=== PATIENT | female | born 1935 | race Caucasian/White ===

== ENCOUNTER 2016-06-17 09:58 | Inpatient (IN) | payer MEDICARE, MEDICAID ==
[2016-06-17] MEDS ORDERED: Sodium Chloride 0.9% 500 ML IV ONE (10:30)
[2016-06-17 10:32] VITALS: BMI 25.6
--- NOTE | 2016-06-17 10:45 | C.PDOC ---
History Of Present Illness 80-year-old female, PMHx includes Anemia, presents to the emergency department with complaints of dizziness (sensation of room spinning), over the past several days. Today, she states the dizziness worsened, and was associated with chest pain, shortness of breath and a decreased PO intake. Patient notes a Hx of similar symptoms dizziness, but it is "stronger" this time. She denies nausea/vomiting, diarrhea, fever/chills, visual changes, extremity weakness, sensory changes, facial droop, slurred speech. 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 History/Exam Limitations: no limitations Onset/Duration Of Symptoms: Days Current Symptoms Are (Timing): Still Present Possible Causative Factor(s): Vertigo Severity: Moderate Past Medical History Reviewed: Historical Data, Nursing Documentation, Vital Signs Vital Signs: Last Vital Signs Temp 98.0 F 06/21/16 15:10 Pulse 73 06/21/16 15:10 Resp 18 06/21/16 15:10 BP 134/73 06/21/16 15:10 Pulse Ox 99 06/21/16 15:10 - Medical History PMH: Anemia, Arthritis (KNEES, HIPS), Asthma, CHF, CVA, Diabetes, HTN, Hypercholesterolemia, Osteoporosis, Chronic Kidney Disease - [facility] Procedures OPEN REDUC-INT FIX FEMUR (01/01/13) Family History: States: No Known Family Hx - Social History Hx Tobacco Use: No Hx Alcohol Use: No Hx Substance Use: No - Immunization History Hx Tetanus Toxoid Vaccination: Yes Hx Influenza Vaccination: Yes Hx Pneumococcal Vaccination: Yes Review Of Systems Except As Marked, All Systems Reviewed And Found Negative. Constitutional: Negative for: Fever, Chills Cardiovascular: Positive for: Chest Pain. Negative for: Palpitations Respiratory: Positive for: Shortness of Breath. Negative for: Cough Gastrointestinal: Negative for: Nausea, Vomiting Musculoskeletal: Negative for: Back Pain Skin: Negative for: Rash Neurological: Positive for: Dizziness. Negative for: Weakness, Numbness Physical Exam - Physical Exam Appears: Well, Non-toxic, No Acute Distress Skin: Warm, Dry, No Rash Head: Normacephalic Eye(s): bilateral: Normal Inspection, PERRL, EOMI, Other (no nystagmus) Oral Mucosa: Moist Neck: Normal, Normal ROM Cardiovascular: Rhythm Regular, Murmur (3/6 holosystolic) Respiratory: Normal Breath Sounds, No Rales, No Rhonchi, No Wheezing Gastrointestinal/Abdominal: Normal Exam, Bowel Sounds, Soft, No Tenderness Extremity: Normal ROM, No Tenderness, Pedal Edema Neurological/Psych: Oriented x3, Normal Speech, Normal Cognition, Normal Cranial Nerves, No Cerebellar Signs, Normal Motor, Normal Sensation ED Course And Treatment - Laboratory Results Result Diagrams: 06/20/16 11:57 06/21/16 06:12 ECG: Interpreted By Me, Viewed By Me ECG Rhythm: Sinus Rhythm ECG Interpretation: No Acute Changes Rate From EC (bpm) O2 Sat by Pulse Oximetry: 97 (ra) Pulse Ox Interpretation: Normal - Radiology CXR: Interpreted by Me, Viewed By Me CXR Interpretation: Yes: No Acute Disease. No: Infiltrates Progress Note: Bloodwork, EKG, CXR, and UA ordered and reviewed. Patient given IV NS bolus. PO ASA given after CT head (-) for bleed, and IV cipro given for UTI. Reevaluation Time: 12:45 Reassessment Condition: Improved (Patient resting comfortably, vitals stable.) - Physician Consult Information Physician Contacted: Clarisa Pace Outcome Of Conversation: Discussed patient with Dr. Pace, she agrees with admissin for chest pain, dyspnea, anemia, elevated Bun/Cr, vertigo, UTI. Disposition - Disposition Disposition: HOSPITALIZED Disposition Time: 13:02 Condition: FAIR - Clinical Impression Clinical Impression: Elevated serum creatinine, UTI (urinary tract infection), Chest pain, Elevated BUN, Dyspnea, Anemia - Scribe Statement The provider has reviewed the documentation as recorded by the Vadim Watkins All medical record entries made by the Vadim were at my direction and personally dictated by me. I have reviewed the chart and agree that the record accurately reflects my personal performance of the history, physical exam, medical decision making, and the department course for this patient. I have also personally directed, reviewed, and agree with the discharge instructions and disposition. Decision To Admit - Pt Status Changed To: Hospital Disposition Of: Inpatient - Admit Certification Admit to Inpatient:: After my assessment, the patient will require hospitalization for at least two midnights. This is because of the severity of symptoms shown, intensity of services needed, and/or the medical risk in this patient being treated as an outpatient. - InPatient: Physician Admission Certification: I certify that this patient requires 2 or more midnights of care for the following reason:: see notes - . Bed Request Type: Telemetry Admitting Physician: Clarisa Pace Patient Diagnosis: Dizziness, Chest pain, Dyspnea, Elevated serum creatinine, UTI (urinary tract infection), Elevated BUN
[2016-06-17 10:57] LABS: BASO # 0.1 K/uL (0.0-0.2); BASO % 0.9 % (0.0-2.0); EOS # 0.2 K/uL (0.0-0.7); EOS % 2.7 % (0.0-4.0); HEMATOCRIT 30.3 % (34.0-47.0); LYMPH # 2.5 K/uL (1.0-4.3); LYMPH % 34.5 % (20.0-40.0); MEAN CELL VOLUME 80.5 fL (81.0-99.0); MEAN CORPUSCULAR HEMOGLOBIN 25.6 pg (27.0-31.0); MEAN CORPUSCULAR HGB CONC 31.9 g/dL (33.0-37.0); MEAN PLATELET VOLUME 10.1 fL (7.2-11.7); MONO # 0.7 K/uL (0.0-0.8); MONO % 10.2 % (0.0-10.0); RED CELL DISTRIBUTION WIDTH 17.6 % (11.5-14.5); WHITE BLOOD COUNT 7.3 K/uL (4.8-10.8)
[2016-06-17 11:07] LABS: CHLORIDE 100 mmol/L (98-107); POTASSIUM 4.5 mmol/L (3.6-5.2); SODIUM 136 mmol/L (132-148)
[2016-06-17 11:09] LABS: GFR AFRICAN-AMERICAN 48
[2016-06-17 11:10] LABS: ALB/GLOB RATIO 1.4 (1.0-2.1); ALKALINE PHOSPHATASE 62 U/L (38-126); ALT/SGPT 26 U/L (9-52); AST/SGOT 18 U/L (14-36); BILIRUBIN,TOTAL < 0.1 mg/dL (0.2-1.3); BLOOD UREA NITROGEN 50 mg/dL (7-17); CALCIUM 9.7 mg/dl (8.6-10.4); CARBON DIOXIDE 25 mmol/L (22-30); GLUCOSE,RANDOM 192 mg/dL (65-105); TOTAL PROTEIN 7.8 g/dL (6.3-8.3)
[2016-06-17 11:36] LABS: RBC URINE < 1 /hpf (0-3); URINE BACTERIA RARE (<OCC); URINE BILIRUBIN NEGATIVE (NEGATIVE); URINE BLOOD NEGATIVE (NEGATIVE); URINE COLOR Straw (YELLOW); URINE GLUCOSE (UA) NORMAL (Normal); URINE KETONE NEGATIVE (NEGATIVE); URINE LEUKOCYTE ESTERASE 1+ Leu/uL (Negative); URINE PROTEIN NEGATIVE (NEGATIVE); URINE UROBILINOGEN NORMAL mg/dL (0.2-1.0); WBC URINE 13 /hpf (0-5)
--- NOTE | 2016-06-17 12:12 | RAD ---
PROCEDURE: CHEST RADIOGRAPH, 1 VIEW. Technique: Single view portable semi erect @ 10:40. HISTORY: SOB COMPARISON: 12/02/2014. FINDINGS: LUNGS: Clear. PLEURA: No pneumothorax or pleural fluid seen. CARDIOVASCULAR: No radiographic findings to suggest acute or significant cardiovascular disease. OSSEOUS STRUCTURES: No significant abnormalities. VISUALIZED UPPER ABDOMEN: Normal. OTHER FINDINGS: None. IMPRESSION: No active disease.
[2016-06-17] MEDS ORDERED: Ciprofloxacin 400mg/200ml D5W 400 MG/200 ML BAG IV ONE (13:15)
[2016-06-17] MEDS ORDERED: Ciprofloxacin 400mg/200ml D5W 400 MG/200 ML BAG IVPB ONE (13:32)
[2016-06-17] MEDS ORDERED: Albuterol HFA 90 mcg/actuation (8 g) IH PRN (15:45)
[2016-06-17] MEDS ORDERED: Sodium Chloride 0.9% 1,000 ML IV SCH (15:45)
[2016-06-17] MEDS: (Novolin R) Insulin Human Regular 100 units/ml vial SC SCH ×3 (18:25→21:53)
[2016-06-18] MEDS: Ciprofloxacin 200mg/100ml D5W 100 ML IVPB SCH ×2 (02:00→13:32)
[2016-06-18 07:41] LABS: BASO % 0.1 % (0.0-2.0); EOS # 0.1 K/uL (0.0-0.7); EOS % 0.3 % (0.0-4.0); HEMATOCRIT 27.9 % (34.0-47.0); LYMPH % 9.8 % (20.0-40.0); MEAN CELL VOLUME 80.6 fL (81.0-99.0); MEAN CORPUSCULAR HEMOGLOBIN 25.3 pg (27.0-31.0); MEAN CORPUSCULAR HGB CONC 31.4 g/dL (33.0-37.0); MEAN PLATELET VOLUME 10.9 fL (7.2-11.7); MONO # 0.9 K/uL (0.0-0.8); MONO % 4.4 % (0.0-10.0); PLATELET COUNT 185 K/uL (130-400); RED CELL DISTRIBUTION WIDTH 17.5 % (11.5-14.5)
[2016-06-18 07:46] LABS: WHITE BLOOD COUNT 20.6 K/uL (4.8-10.8)
[2016-06-18 08:14] LABS: POTASSIUM 4.6 mmol/L (3.6-5.2)
[2016-06-18 08:17] LABS: CALCIUM 8.6 mg/dl (8.6-10.4)
[2016-06-18] MEDS: (Novolin R) Insulin Human Regular 100 units/ml vial SC SCH ×4 (09:00→21:54)
[2016-06-18 10:11] LABS: NEUTROPHIL 72 % (50-75); TOTAL CELLS COUNTED 100
[2016-06-18 10:12] LABS: LARGE PLATELETS PRESENT; SPHEROCYTES SLIGHT
[2016-06-18] MEDS: Enoxaparin 30 mg Syringe SC SCH (10:18)
[2016-06-18] MEDS: Pantoprazole 40 mg EC Tab PO SCH (10:18)
[2016-06-18] MEDS: Multiple Vitamins Tab PO SCH (10:18)
--- NOTE | 2016-06-18 10:38 | CP.PCM.HP ---
Present on Admission - Present on Admission Any Indicators Present on Admission: Yes History of Uncontrolled Diabetes: Yes Past Patient History - Infectious Disease Hx of Infectious Diseases: None - Past Medical History & Family History Past Medical History?: Yes - Past Social History Smoking Status: Never Smoked - CARDIAC Hx Congestive Heart Failure: Yes Hx Hypercholesterolemia: Yes Hx Hypertension: Yes - PULMONARY Hx Asthma: Yes - NEUROLOGICAL Hx Alzheimer's Disease: No Hx Dementia: No - HEENT Hx HEENT Problems: No - RENAL Hx Chronic Kidney Disease: Yes - ENDOCRINE/METABOLIC Hx Diabetes Mellitus Type 1: No Hx Diabetes Mellitus Type 2: Yes - HEMATOLOGICAL/ONCOLOGICAL Hx Anemia: Yes - INTEGUMENTARY Hx Dermatological Problems: No - MUSCULOSKELETAL/RHEUMATOLOGICAL Hx Arthritis: Yes (KNEES, HIPS) Hx Falls: Yes Hx Osteoporosis: Yes - GASTROINTESTINAL Hx Gastrointestinal Disorders: No - GENITOURINARY/GYNECOLOGICAL Hx Genitourinary Disorders: No - PSYCHIATRIC Hx Substance Use: No - SURGICAL HISTORY Hx Surgeries: Yes Hx Orthopedic Surgery: Yes (Left hip replacemetn and right femur) - ANESTHESIA Hx Anesthesia: Yes Hx Anesthesia Reactions: No Hx Malignant Hyperthermia: No Meds Allergies/Adverse Reactions: Allergies Allergy/AdvReac Type Severity Reaction Status Date / Time Penicillins Allergy Verified 06/17/16 10:16 Results - Vital Signs Recent Vital Signs: Last Vital Signs Temp 98 F 06/18/16 08:29 Pulse 84 06/18/16 08:29 Resp 19 06/18/16 08:29 BP 127/70 06/18/16 10:19 Pulse Ox 95 06/18/16 08:29 - Labs Result Diagrams: 06/18/16 07:13 06/18/16 07:13 Labs: Laboratory Results - last 24 hr 06/17/16 06/17/16 06/17/16 16:04 17:03 20:59 WBC RBC Hgb Hct MCV MCH MCHC RDW Plt Count MPV Neut % (Auto) Lymph % (Auto) [place] % (Auto) Eos % (Auto) Baso % (Auto) Neut # Lymph # [place] # Eos # Baso # Neutrophils % (Manual) Band Neutrophils % Lymphocytes % (Manual) Monocytes % (Manual) Platelet Estimate Large Platelets Polychromasia Hypochromasia (manual) Poikilocytosis (manual Anisocytosis (manual) Spherocytes Ovalocytes Sodium Potassium Chloride Carbon Dioxide Anion Gap BUN Creatinine Est GFR ( Amer) Est GFR (Non-Af Amer) POC Glucose (mg/dL) 231 H 275 H Random Glucose Calcium Total Creatine Kinase 28 L CK-MB (Mass) 0.99 Troponin I, Quant < 0.0120 06/18/16 06/18/16 06/18/16 06:42 07:13 07:13 WBC 20.6 H D RBC 3.46 L Hgb 8.8 L Hct 27.9 L MCV 80.6 L MCH 25.3 L MCHC 31.4 L RDW 17.5 H Plt Count 185 MPV 10.9 Neut % (Auto) 85.4 H Lymph % (Auto) 9.8 L [place] % (Auto) 4.4 Eos % (Auto) 0.3 Baso % (Auto) 0.1 Neut # 17.6 H Lymph # 2.0 [place] # 0.9 H Eos # 0.1 Baso # 0.0 Neutrophils % (Manual) 72 Band Neutrophils % 9 H Lymphocytes % (Manual) 15 L Monocytes % (Manual) 4 Platelet Estimate Normal Large Platelets Present Polychromasia Slight Hypochromasia (manual) Slight Poikilocytosis (manual Slight Anisocytosis (manual) Slight Spherocytes Slight Ovalocytes Slight Sodium 135 Potassium 4.6 Chloride 101 Carbon Dioxide 23 Anion Gap 16 BUN 48 H Creatinine 1.5 H Est GFR ( Amer) 40 Est GFR (Non-Af Amer) 33 POC Glucose (mg/dL) 253 H Random Glucose 241 H Calcium 8.6 Total Creatine Kinase CK-MB (Mass) Troponin I, Quant
--- NOTE | 2016-06-18 10:48 | CP.PCM.CON ---
History of Present Illness - History of Present Illness History of Present Illness: 81 year old female with the following chronic medical problems 1. DM - Chronic 2. Mitral stenosis - chronic but stable 3. HTN - chronic She is admitted to [facility] for nausea and vomiting. Past Patient History - Infectious Disease Hx of Infectious Diseases: None - Past Medical History & Family History Past Medical History?: Yes - Past Social History Smoking Status: Never Smoked - CARDIAC Hx Congestive Heart Failure: Yes Hx Hypercholesterolemia: Yes Hx Hypertension: Yes - PULMONARY Hx Asthma: Yes - NEUROLOGICAL Hx Alzheimer's Disease: No Hx Dementia: No - HEENT Hx HEENT Problems: No - RENAL Hx Chronic Kidney Disease: Yes - ENDOCRINE/METABOLIC Hx Diabetes Mellitus Type 1: No Hx Diabetes Mellitus Type 2: Yes - HEMATOLOGICAL/ONCOLOGICAL Hx Anemia: Yes - INTEGUMENTARY Hx Dermatological Problems: No - MUSCULOSKELETAL/RHEUMATOLOGICAL Hx Arthritis: Yes (KNEES, HIPS) Hx Falls: Yes Hx Osteoporosis: Yes - GASTROINTESTINAL Hx Gastrointestinal Disorders: No - GENITOURINARY/GYNECOLOGICAL Hx Genitourinary Disorders: No - PSYCHIATRIC Hx Substance Use: No - SURGICAL HISTORY Hx Surgeries: Yes Hx Orthopedic Surgery: Yes (Left hip replacemetn and right femur) - ANESTHESIA Hx Anesthesia: Yes Hx Anesthesia Reactions: No Hx Malignant Hyperthermia: No Meds Home Medications: Home Medication List Medication Instructions Recorded Confirmed Type Famotidine [Pepcid] 20 mg PO BID #60 tab 06/22/16 Rx Saccharomyces Boulardi [Florastor] 250 mg PO BID #15 cap 06/22/16 Rx Allergies/Adverse Reactions: Allergies Allergy/AdvReac Type Severity Reaction Status Date / Time Penicillins Allergy Verified 06/17/16 10:16 - Medications Medications: Current Medications Acetaminophen (Tylenol 325mg Tab) 650 mg PO Q6 PRN PRN Reason: Pain, moderate (4-7) Last Admin: 06/17/16 22:14 Dose: 650 mg Albuterol (Ventolin Hfa 90 Mcg/Actuation (8 G)) 1 puff IH QID PRN PRN Reason: WHEEZING OR SOB Last Admin: 06/17/16 18:50 Dose: 1 puff Aspirin (Aspirin Chewable) 81 mg PO DAILY [facility] Last Admin: 06/18/16 10:18 Dose: 81 mg Carvedilol (Coreg) 25 mg PO BID [facility] Last Admin: 06/18/16 10:19 Dose: 25 mg Enalapril Maleate (Vasotec) 5 mg PO DAILY [facility] Last Admin: 06/18/16 10:18 Dose: 5 mg Enoxaparin Sodium (Lovenox) 30 mg SC DAILY [facility] Last Admin: 06/18/16 10:18 Dose: 30 mg Sodium Chloride (Sodium Chloride 0.9%) 1,000 mls @ 60 mls/hr IV .[id number] [facility] Last Admin: 06/17/16 16:49 Dose: 60 mls/hr Ciprofloxacin (Cipro 200mg/100ml D5w) 100 mls @ 100 mls/hr IVPB Q12H [facility] Last Admin: 06/18/16 02:00 Dose: 100 mls/hr Insulin Human Regular (Novolin R) 0 unit SC ACHS [facility] PRN Reason: Protocol Last Admin: 06/18/16 09:00 Dose: 3 unit Metformin HCl (Glucophage) 500 mg PO BIDCC [facility] Last Admin: 06/18/16 09:00 Dose: 500 mg Multivitamins (Hexavitamin) 1 tab PO DAILY [facility] Last Admin: 06/18/16 10:18 Dose: 1 tab Pantoprazole Sodium (Protonix Ec Tab) 40 mg PO DAILY [facility] Last Admin: 06/18/16 10:18 Dose: 40 mg Physical Exam - Constitutional Appears: Toxic, Cachectic - Head Exam Head Exam: ATRAUMATIC, NORMAL INSPECTION - Eye Exam Eye Exam: PERRL. absent: Scleral icterus - ENT Exam ENT Exam: Mucous Membranes Dry, Normal External Ear Exam - Neck Exam Neck exam: Positive for: Full Rom. Negative for: Thyromegaly - Respiratory Exam Respiratory Exam: Prolonged Expiratory Phase, NORMAL BREATHING PATTERN - Cardiovascular Exam Cardiovascular Exam: REGULAR RHYTHM, RRR, +S1, +S2. absent: JVD Additional comments: +Diastolic [place] - GI/Abdominal Exam GI & Abdominal Exam: Tenderness. absent: Organomegaly, Rebound - Neurological Exam Neurological exam: CN II-XII Intact, Oriented x3 - Psychiatric Exam Psychiatric exam: Normal Affect, Normal Mood Results - Vital Signs Recent Vital Signs: Last Vital Signs Temp 98 F 06/18/16 08:29 Pulse 84 06/18/16 08:29 Resp 19 06/18/16 08:29 BP 127/70 06/18/16 10:19 Pulse Ox 95 06/18/16 08:29 - Labs Result Diagrams: 06/22/16 07:00 06/22/16 07:00 Labs: Laboratory Results - last 24 hr 06/17/16 06/17/16 06/17/16 16:04 17:03 20:59 WBC RBC Hgb Hct MCV MCH MCHC RDW Plt Count MPV Neut % (Auto) Lymph % (Auto) [place] % (Auto) Eos % (Auto) Baso % (Auto) Neut # Lymph # [place] # Eos # Baso # Neutrophils % (Manual) Band Neutrophils % Lymphocytes % (Manual) Monocytes % (Manual) Platelet Estimate Large Platelets Polychromasia Hypochromasia (manual) Poikilocytosis (manual Anisocytosis (manual) Spherocytes Ovalocytes Sodium Potassium Chloride Carbon Dioxide Anion Gap BUN Creatinine Est GFR ( Amer) Est GFR (Non-Af Amer) POC Glucose (mg/dL) 231 H 275 H Random Glucose Calcium Total Creatine Kinase 28 L CK-MB (Mass) 0.99 Troponin I, Quant < 0.0120 06/18/16 06/18/16 06/18/16 06:42 07:13 07:13 WBC 20.6 H D RBC 3.46 L Hgb 8.8 L Hct 27.9 L MCV 80.6 L MCH 25.3 L MCHC 31.4 L RDW 17.5 H Plt Count 185 MPV 10.9 Neut % (Auto) 85.4 H Lymph % (Auto) 9.8 L [place] % (Auto) 4.4 Eos % (Auto) 0.3 Baso % (Auto) 0.1 Neut # 17.6 H Lymph # 2.0 [place] # 0.9 H Eos # 0.1 Baso # 0.0 Neutrophils % (Manual) 72 Band Neutrophils % 9 H Lymphocytes % (Manual) 15 L Monocytes % (Manual) 4 Platelet Estimate Normal Large Platelets Present Polychromasia Slight Hypochromasia (manual) Slight Poikilocytosis (manual Slight Anisocytosis (manual) Slight Spherocytes Slight Ovalocytes Slight Sodium 135 Potassium 4.6 Chloride 101 Carbon Dioxide 23 Anion Gap 16 BUN 48 H Creatinine 1.5 H Est GFR ( Amer) 40 Est GFR (Non-Af Amer) 33 POC Glucose (mg/dL) 253 H Random Glucose 241 H Calcium 8.6 Total Creatine Kinase CK-MB (Mass) Troponin I, Quant Assessment & Plan - Assessment and Plan (Free Text) Assessment: 80 year old female with vomiting and fatigue - suspcious for gastroenteritis or other infectious process ingram culture, abx, IVF with caution Diastolic CHF - currently volume depleted, known moderate Mitral stenosis so administer fluid with caution Leukocytosis acute DM - insulin sliding scale CKD - chronic and stable - check U/A with culture
--- NOTE | 2016-06-18 10:49 | CP.PCM.PN ---
Subjective - Date & Time of Evaluation Date of Evaluation: 06/18/16 Time of Evaluation: 10:47 - Subjective Subjective: VOMITING FEELING SEVERE HEADEACK TREMORS SOB CHEST PAIN Objective - Vital Signs/Intake and Output Vital Signs (last 24 hours): Temp Pulse Resp BP Pulse Ox 98 F 84 19 127/70 95 06/18/16 08:29 06/18/16 08:29 06/18/16 08:29 06/18/16 10:19 06/18/16 08:29 Intake and Output: 06/18/16 06/18/16 06:59 18:59 Intake Total 720 Output Total 500 Balance 220 - Medications Medications: Current Medications Acetaminophen (Tylenol 325mg Tab) 650 mg PO Q6 PRN PRN Reason: Pain, moderate (4-7) Last Admin: 06/17/16 22:14 Dose: 650 mg Albuterol (Ventolin Hfa 90 Mcg/Actuation (8 G)) 1 puff IH QID PRN PRN Reason: WHEEZING OR SOB Last Admin: 06/17/16 18:50 Dose: 1 puff Aspirin (Aspirin Chewable) 81 mg PO DAILY [facility] Last Admin: 06/18/16 10:18 Dose: 81 mg Carvedilol (Coreg) 25 mg PO BID [facility] Last Admin: 06/18/16 10:19 Dose: 25 mg Enalapril Maleate (Vasotec) 5 mg PO DAILY [facility] Last Admin: 06/18/16 10:18 Dose: 5 mg Enoxaparin Sodium (Lovenox) 30 mg SC DAILY [facility] Last Admin: 06/18/16 10:18 Dose: 30 mg Sodium Chloride (Sodium Chloride 0.9%) 1,000 mls @ 60 mls/hr IV .[id number] [facility] Last Admin: 06/17/16 16:49 Dose: 60 mls/hr Ciprofloxacin (Cipro 200mg/100ml D5w) 100 mls @ 100 mls/hr IVPB Q12H [facility] Last Admin: 06/18/16 02:00 Dose: 100 mls/hr Insulin Human Regular (Novolin R) 0 unit SC ACHS [facility] PRN Reason: Protocol Last Admin: 06/18/16 09:00 Dose: 3 unit [facility] Last Admin: 06/18/16 09:00 Dose: 500 mg Multivitamins (Hexavitamin) 1 tab PO DAILY [facility] Last Admin: 06/18/16 10:18 Dose: 1 tab Pantoprazole Sodium (Protonix Ec Tab) 40 mg PO DAILY [facility] Last Admin: 06/18/16 10:18 Dose: 40 mg - Labs Labs: 06/18/16 07:13 06/18/16 07:13 PT 11.0 SECONDS (9.7-12.2) 06/17/16 10:50 INR 1.0 06/17/16 10:50 APTT 29 SECONDS (21-34) 06/17/16 10:50 - Constitutional Appears: In Acute Distress - Head Exam Head Exam: NORMAL INSPECTION - Eye Exam Eye Exam: Normal appearance - ENT Exam ENT Exam: Mucous Membranes Dry - Neck Exam Neck Exam: Full ROM - Respiratory Exam Respiratory Exam: Rhonchi - Cardiovascular Exam Cardiovascular Exam: REGULAR RHYTHM - GI/Abdominal Exam GI & Abdominal Exam: Tenderness - Extremities Exam Extremities Exam: Normal Inspection - Back Exam Back Exam: NORMAL INSPECTION - Neurological Exam Additional comments: TREMORS - Psychiatric Exam Psychiatric exam: Agitated - Skin Skin Exam: Pallor Assessment and Plan - Assessment and Plan (Free Text) Assessment: AC SEVERE HEADECK CHEST PAIN TREMORS VOMITING DM Plan: PER ORDERS
[2016-06-18] MEDS ORDERED: Albuterol-Ipratrop 3 mg / 0.5 (3 ml) UD INH STA (10:51)
[2016-06-18 11:25] LABS: BASO # 0.1 K/uL (0.0-0.2); BASO % 0.3 % (0.0-2.0); EOS # 0.1 K/uL (0.0-0.7); EOS % 0.8 % (0.0-4.0); HEMATOCRIT 28.3 % (34.0-47.0); LYMPH # 1.6 K/uL (1.0-4.3); LYMPH % 9.2 % (20.0-40.0); MEAN CELL VOLUME 80.3 fL (81.0-99.0); MEAN CORPUSCULAR HEMOGLOBIN 25.5 pg (27.0-31.0); MEAN CORPUSCULAR HGB CONC 31.7 g/dL (33.0-37.0); MEAN PLATELET VOLUME 10.4 fL (7.2-11.7); MONO # 0.7 K/uL (0.0-0.8); MONO % 3.9 % (0.0-10.0); PLATELET COUNT 165 K/uL (130-400); RED CELL DISTRIBUTION WIDTH 17.1 % (11.5-14.5)
--- NOTE | 2016-06-18 11:51 | CT ---
PROCEDURE: CT HEAD WITHOUT CONTRAST. HISTORY: dizziness COMPARISON: Comparison is made to the previous study dated 07/14/2013 TECHNIQUE: Axial computed tomography images were obtained through the head/brain without intravenous contrast. Radiation dose: Total exam DLP = 755.28 mGy-cm. This CT exam was performed using one or more of the following dose reduction techniques: Automated exposure control, adjustment of the mA and/or kV according to patient size, and/or use of iterative reconstruction technique. FINDINGS: HEMORRHAGE: No intracranial hemorrhage. BRAIN: Focal hypodensity at the right coronal radiata centrum semiovale seen suspicious for subacute lacunar infarct. Moderate atrophy and moderate chronic microvascular white matter ischemic disease are again seen. VENTRICLES: Unremarkable. No hydrocephalus. CALVARIUM: Unremarkable. PARANASAL SINUSES: Unremarkable as visualized. No significant inflammatory changes. MASTOID AIR CELLS: Unremarkable as visualized. No inflammatory changes. OTHER FINDINGS: None. IMPRESSION: No evidence of acute intracranial hemorrhage intracranial collection mass effect or midline shift. Moderate atrophy and moderate chronic microvascular ischemic disease. Interval appearance of a focal hypodensity at the right coronal radiata/centrum semiovale may represent subacute or chronic lacunar infarct. Otherwise no interval change.
[2016-06-18 11:57] LABS: WHITE BLOOD COUNT 17.7 K/uL (4.8-10.8)
[2016-06-18 13:02] LABS: NEUTROPHIL 78 % (50-75); TOTAL CELLS COUNTED 100
--- NOTE | 2016-06-18 15:43 | CON ---
DATE: 06/17/2016 REASON FOR CONSULTATION: Dizziness. HISTORY OF PRESENT ILLNESS: This is an 80-year-old female who complains of a 1-week history of dizzi ness which was on and off and is not constant, moderate in intensity. She has no hearing loss and no ringing in the ears. PAST MEDICAL HISTORY: As noted in the chart by me. MEDICATIONS: As noted in the chart by me. PHYSICAL EXAMINATION: HEAD: Atraumatic, normocephalic. FACE: Good facial movements bilaterally. CONSTITUTIONAL: Well-developed, well-nourished. COMMUNICATION: Communicates very appropriately. EXTERNAL NOSE AND EARS: No masses, no lesions, no erythema, no edema. INTERNAL NOSE: Deviated septum, no masses, no lesions, no erythema, no edema. ORAL CAVITY, OROPHARYNX: No masses, no lesions, no erythema, no edema. LIPS, GUMS: No masses, no lesions, no erythema, no edema. NECK: Supple. THYROID: No thyromegaly, no goiter. LYMPH NODES: No lymphadenopathy of the neck. ASSESSMENT: 1. Dizziness. 2. Deviated septum. PLAN: The patient should have an MRI done, if MRI normal from an ENT point of view, can be discharge d home. Follow up as an outpatient for a VNG. The patient can be discharged home when she can ambul ate safely and take adequate p.o. It should be noted that I used a solar thermal installer through the computer t o communicate with the patient. Bassem Blake MD cc: [id number] TT: 06/18/2016 15:43:18 Confirmation # [id number] Dictation # [id number]
[2016-06-18] MEDS: Sodium Chloride 0.9% 1,000 ML IV SCH (16:51)
[2016-06-18 18:03] LABS: CHOLESTEROL 190 mg/dL (0-199)
--- NOTE | 2016-06-18 18:55 | CP.PCM.CON ---
History of Present Illness - History of Present Illness History of Present Illness: I was called to see this consult since the nurse was instructed by primary physician to "call ICU if SBP falls below 100 mmhg" When patient was seen she was sitting in her bed while feeding herself. conversation was limited due to barrier language. exam remarkable only for mild ronchi in RLL, rest of right lung field and left lung clear. labs remarkable for wbc and bands elevated, but coming down, BUN/Cr elevated and at her baseline. She is receiving 80 mL of saline an hour and not getting more for "History of CHF", but echo on 05/06/14 shows normal EF and no mention of diastolic dysfunction. VS as follows bp 100/62 mmhg, hr 80 bp m, T 97.6, O2 100% on 2 L NC No need for ICU admission at this time. I will monitor UO carefully and BUN/Cr, wbc and bands coming down. I advise against use of b-blockers and metformin in this patient. Past Patient History - Infectious Disease Hx of Infectious Diseases: None - Past Medical History & Family History Past Medical History?: Yes - Past Social History Smoking Status: Never Smoked - CARDIAC Hx Congestive Heart Failure: Yes Hx Hypercholesterolemia: Yes Hx Hypertension: Yes - PULMONARY Hx Asthma: Yes - NEUROLOGICAL Hx Alzheimer's Disease: No Hx Dementia: No - HEENT Hx HEENT Problems: No - RENAL Hx Chronic Kidney Disease: Yes - ENDOCRINE/METABOLIC Hx Diabetes Mellitus Type 1: No Hx Diabetes Mellitus Type 2: Yes - HEMATOLOGICAL/ONCOLOGICAL Hx Anemia: Yes - INTEGUMENTARY Hx Dermatological Problems: No - MUSCULOSKELETAL/RHEUMATOLOGICAL Hx Arthritis: Yes (KNEES, HIPS) Hx Falls: Yes Hx Osteoporosis: Yes - GASTROINTESTINAL Hx Gastrointestinal Disorders: No - GENITOURINARY/GYNECOLOGICAL Hx Genitourinary Disorders: No - PSYCHIATRIC Hx Substance Use: No - SURGICAL HISTORY Hx Surgeries: Yes Hx Orthopedic Surgery: Yes (Left hip replacemetn and right femur) - ANESTHESIA Hx Anesthesia: Yes Hx Anesthesia Reactions: No Hx Malignant Hyperthermia: No Meds Allergies/Adverse Reactions: Allergies Allergy/AdvReac Type Severity Reaction Status Date / Time Penicillins Allergy Verified 06/17/16 10:16 - Medications Medications: Current Medications Acetaminophen (Tylenol 325mg Tab) 650 mg PO Q6 PRN PRN Reason: Pain, moderate (4-7) Last Admin: 06/17/16 22:14 Dose: 650 mg Albuterol (Ventolin Hfa 90 Mcg/Actuation (8 G)) 1 puff IH QID PRN PRN Reason: WHEEZING OR SOB Last Admin: 06/17/16 18:50 Dose: 1 puff Aspirin (Aspirin Chewable) 81 mg PO DAILY [facility] [place] Last Admin: 06/18/16 10:18 Dose: 81 mg Carvedilol (Coreg) 25 mg PO BID [facility] [place] Last Admin: 06/18/16 17:04 Dose: Not Given Enalapril Maleate (Vasotec) 5 mg PO DAILY [facility] [place] Last Admin: 06/18/16 10:18 Dose: 5 mg Enoxaparin Sodium (Lovenox) 30 mg SC DAILY [facility] [place] Last Admin: 06/18/16 10:18 Dose: 30 mg Ciprofloxacin (Cipro 200mg/100ml D5w) 100 mls @ 100 mls/hr IVPB Q12H [facility] [place] Last Admin: 06/18/16 13:32 Dose: 100 mls/hr Sodium Chloride (Sodium Chloride 0.9%) 1,000 mls @ 80 mls/hr IV .[id number] [facility] [place] Last Admin: 06/18/16 16:51 Dose: 80 mls/hr Tigecycline 100 mg/ Sodium (Chloride) 100 mls @ 100 mls/hr IVPB ONCE ONE Stop: 06/18/16 18:59 Last Admin: 06/18/16 18:21 Dose: 100 mls/hr Insulin Human Regular (Novolin R) 0 unit SC ACHS [facility] [place] PRN Reason: Protocol Last Admin: 06/18/16 17:37 Dose: 3 unit Metformin HCl (Glucophage) 500 mg PO BIDCC [facility] [place] Last Admin: 06/18/16 17:37 Dose: 500 mg Multivitamins (Hexavitamin) 1 tab PO DAILY [facility] [place] Last Admin: 06/18/16 10:18 Dose: 1 tab Pantoprazole Sodium (Protonix Ec Tab) 40 mg PO DAILY [facility] [place] Last Admin: 06/18/16 10:18 Dose: 40 mg Results - Vital Signs Recent Vital Signs: Last Vital Signs Temp 97.6 F 06/18/16 15:40 Pulse 80 06/18/16 16:49 Resp 20 06/18/16 15:40 BP 100/62 06/18/16 16:49 Pulse Ox 100 06/18/16 15:40 - Labs Result Diagrams: 06/18/16 11:21 05/13/17 07:13 Labs: Laboratory Results - last 24 hr 06/17/16 06/18/16 06/18/16 20:59 06:42 07:13 WBC 20.6 H D RBC 3.46 L Hgb 8.8 L Hct 27.9 L MCV 80.6 L MCH 25.3 L MCHC 31.4 L RDW 17.5 H Plt Count 185 MPV 10.9 Neut % (Auto) 85.4 H Lymph % (Auto) 9.8 L [place] % (Auto) 4.4 Eos % (Auto) 0.3 Baso % (Auto) 0.1 Neut # 17.6 H Lymph # 2.0 Bath # 0.9 H Eos # 0.1 Baso # 0.0 Neutrophils % (Manual) 72 Band Neutrophils % 9 H Lymphocytes % (Manual) 15 L Monocytes % (Manual) 4 Platelet Estimate Normal Large Platelets Present Polychromasia Slight Hypochromasia (manual) Slight Poikilocytosis (manual Slight Anisocytosis (manual) Slight Spherocytes Slight Ovalocytes Slight Sodium Potassium Chloride Carbon Dioxide Anion Gap BUN Creatinine Est GFR ( Amer) Est GFR (Non-Af Amer) POC Glucose (mg/dL) 275 H 253 H Random Glucose Calcium 06/18/16 06/18/16 06/18/16 07:13 11:14 11:21 WBC 17.7 H RBC 3.52 L Hgb 9.0 L Hct 28.3 L MCV 80.3 L MCH 25.5 L MCHC 31.7 L RDW 17.1 H Plt Count 165 MPV 10.4 Neut % (Auto) 85.8 H Lymph % (Auto) 9.2 L Bath % (Auto) 3.9 Eos % (Auto) 0.8 Baso % (Auto) 0.3 Neut # 15.2 H Lymph # 1.6 Bath # 0.7 Eos # 0.1 Baso # 0.1 Neutrophils % (Manual) 78 H Band Neutrophils % 5 H Lymphocytes % (Manual) 13 L Monocytes % (Manual) 4 Platelet Estimate Normal Large Platelets Polychromasia Hypochromasia (manual) Slight Poikilocytosis (manual Slight Anisocytosis (manual) Slight Spherocytes Ovalocytes Slight Sodium 135 Potassium 4.6 Chloride 101 Carbon Dioxide 23 Anion Gap 16 BUN 48 H Creatinine 1.5 H Est GFR ( Amer) 40 Est GFR (Non-Af Amer) 33 POC Glucose (mg/dL) 251 H Random Glucose 241 H Calcium 8.6 06/18/16 16:06 WBC RBC Hgb Hct MCV MCH MCHC RDW Plt Count MPV Neut % (Auto) Lymph % (Auto) Bath % (Auto) Eos % (Auto) Baso % (Auto) Neut # Lymph # [place] # Eos # Baso # Neutrophils % (Manual) Band Neutrophils % Lymphocytes % (Manual) Monocytes % (Manual) Platelet Estimate Large Platelets Polychromasia Hypochromasia (manual) Poikilocytosis (manual Anisocytosis (manual) Spherocytes Ovalocytes Sodium Potassium Chloride Carbon Dioxide Anion Gap BUN Creatinine Est GFR ( Amer) Est GFR (Non-Af Amer) POC Glucose (mg/dL) 265 H Random Glucose Calcium
--- NOTE | 2016-06-18 19:05 | CP.PCM.CON ---
History of Present Illness - History of Present Illness History of Present Illness: INFECTIOUS DISEASE CONSULTATION; PATIENT SEEN. CHART REVIEWED. CONSULT DICTATED; SEE REPORT.DICTATION #[id number]. ORDERS GIVEN. Past Patient History - Infectious Disease Hx of Infectious Diseases: None - Past Medical History & Family History Past Medical History?: Yes - Past Social History Smoking Status: Never Smoked - CARDIAC Hx Congestive Heart Failure: Yes Hx Hypercholesterolemia: Yes Hx Hypertension: Yes - PULMONARY Hx Asthma: Yes - NEUROLOGICAL Hx Alzheimer's Disease: No Hx Dementia: No - HEENT Hx HEENT Problems: No - RENAL Hx Chronic Kidney Disease: Yes - ENDOCRINE/METABOLIC Hx Diabetes Mellitus Type 1: No Hx Diabetes Mellitus Type 2: Yes - HEMATOLOGICAL/ONCOLOGICAL Hx Anemia: Yes - INTEGUMENTARY Hx Dermatological Problems: No - MUSCULOSKELETAL/RHEUMATOLOGICAL Hx Arthritis: Yes (KNEES, HIPS) Hx Falls: Yes Hx Osteoporosis: Yes - GASTROINTESTINAL Hx Gastrointestinal Disorders: No - GENITOURINARY/GYNECOLOGICAL Hx Genitourinary Disorders: No - PSYCHIATRIC Hx Substance Use: No - SURGICAL HISTORY Hx Surgeries: Yes Hx Orthopedic Surgery: Yes (Left hip replacemetn and right femur) - ANESTHESIA Hx Anesthesia: Yes Hx Anesthesia Reactions: No Hx Malignant Hyperthermia: No Meds Allergies/Adverse Reactions: Allergies Allergy/AdvReac Type Severity Reaction Status Date / Time Penicillins Allergy Verified 06/17/16 10:16 - Medications Medications: Current Medications Acetaminophen (Tylenol 325mg Tab) 650 mg PO Q6 PRN PRN Reason: Pain, moderate (4-7) Last Admin: 06/17/16 22:14 Dose: 650 mg Albuterol (Ventolin Hfa 90 Mcg/Actuation (8 G)) 1 puff IH QID PRN PRN Reason: WHEEZING OR SOB Last Admin: 06/17/16 18:50 Dose: 1 puff Aspirin (Aspirin Chewable) 81 mg PO DAILY [facility] Last Admin: 06/18/16 10:18 Dose: 81 mg Carvedilol (Coreg) 25 mg PO BID [facility] Last Admin: 06/18/16 17:04 Dose: Not Given Enalapril Maleate (Vasotec) 5 mg PO DAILY [facility] Last Admin: 06/18/16 10:18 Dose: 5 mg Enoxaparin Sodium (Lovenox) 30 mg SC DAILY [facility] Last Admin: 06/18/16 10:18 Dose: 30 mg Ciprofloxacin (Cipro 200mg/100ml D5w) 100 mls @ 100 mls/hr IVPB Q12H [facility] Last Admin: 06/18/16 13:32 Dose: 100 mls/hr Sodium Chloride (Sodium Chloride 0.9%) 1,000 mls @ 80 mls/hr IV .[id number] [facility] Last Admin: 06/18/16 16:51 Dose: 80 mls/hr Insulin Human Regular (Novolin R) 0 unit SC ACHS [facility] PRN Reason: Protocol Last Admin: 06/18/16 17:37 Dose: 3 unit Metformin HCl (Glucophage) 500 mg PO BIDCC [facility] Last Admin: 06/18/16 17:37 Dose: 500 mg Multivitamins (Hexavitamin) 1 tab PO DAILY [facility] Last Admin: 06/18/16 10:18 Dose: 1 tab Pantoprazole Sodium (Protonix Ec Tab) 40 mg PO DAILY [facility] Last Admin: 06/18/16 10:18 Dose: 40 mg Results - Vital Signs Recent Vital Signs: Last Vital Signs Temp 97.6 F 06/18/16 15:40 Pulse 80 06/18/16 16:49 Resp 20 06/18/16 15:40 BP 100/62 06/18/16 16:49 Pulse Ox 100 06/18/16 15:40 - Labs Result Diagrams: 06/18/16 11:21 06/18/16 07:13 Labs: Laboratory Results - last 24 hr 06/17/16 06/18/16 06/18/16 20:59 06:42 07:03 WBC RBC Hgb Hct MCV MCH MCHC RDW Plt Count MPV Neut % (Auto) Lymph % (Auto) [place] % (Auto) Eos % (Auto) Baso % (Auto) Neut # Lymph # [place] # Eos # Baso # Neutrophils % (Manual) Band Neutrophils % Lymphocytes % (Manual) Monocytes % (Manual) Platelet Estimate Large Platelets Polychromasia Hypochromasia (manual) Poikilocytosis (manual Anisocytosis (manual) Spherocytes Ovalocytes Sodium Potassium Chloride Carbon Dioxide Anion Gap BUN Creatinine Est GFR ( Amer) Est GFR (Non-Af Amer) POC Glucose (mg/dL) 275 H 253 H Random Glucose Calcium Triglycerides 78 Cholesterol 190 LDL Cholesterol Direct 115 HDL Cholesterol 44 Vitamin B12 > 1000 H 06/18/16 06/18/16 06/18/16 07:13 07:13 11:14 WBC 20.6 H D RBC 3.46 L Hgb 8.8 L Hct 27.9 L MCV 80.6 L MCH 25.3 L MCHC 31.4 L RDW 17.5 H Plt Count 185 MPV 10.9 Neut % (Auto) 85.4 H Lymph % (Auto) 9.8 L [place] % (Auto) 4.4 Eos % (Auto) 0.3 Baso % (Auto) 0.1 Neut # 17.6 H Lymph # 2.0 [place] # 0.9 H Eos # 0.1 Baso # 0.0 Neutrophils % (Manual) 72 Band Neutrophils % 9 H Lymphocytes % (Manual) 15 L Monocytes % (Manual) 4 Platelet Estimate Normal Large Platelets Present Polychromasia Slight Hypochromasia (manual) Slight Poikilocytosis (manual Slight Anisocytosis (manual) Slight Spherocytes Slight Ovalocytes Slight Sodium 135 Potassium 4.6 Chloride 101 Carbon Dioxide 23 Anion Gap 16 BUN 48 H Creatinine 1.5 H Est GFR ( Amer) 40 Est GFR (Non-Af Amer) 33 POC Glucose (mg/dL) 251 H Random Glucose 241 H Calcium 8.6 Triglycerides Cholesterol LDL Cholesterol Direct HDL Cholesterol Vitamin B12 06/18/16 06/18/16 11:21 16:06 WBC 17.7 H RBC 3.52 L Hgb 9.0 L Hct 28.3 L MCV 80.3 L MCH 25.5 L MCHC 31.7 L RDW 17.1 H Plt Count 165 MPV 10.4 Neut % (Auto) 85.8 H Lymph % (Auto) 9.2 L [place] % (Auto) 3.9 Eos % (Auto) 0.8 Baso % (Auto) 0.3 Neut # 15.2 H Lymph # 1.6 [place] # 0.7 Eos # 0.1 Baso # 0.1 Neutrophils % (Manual) 78 H Band Neutrophils % 5 H Lymphocytes % (Manual) 13 L Monocytes % (Manual) 4 Platelet Estimate Normal Large Platelets Polychromasia Hypochromasia (manual) Slight Poikilocytosis (manual Slight Anisocytosis (manual) Slight Spherocytes Ovalocytes Slight Sodium Potassium Chloride Carbon Dioxide Anion Gap BUN Creatinine Est GFR ( Amer) Est GFR (Non-Af Amer) POC Glucose (mg/dL) 265 H Random Glucose Calcium Triglycerides Cholesterol LDL Cholesterol Direct HDL Cholesterol Vitamin B12
[2016-06-18 19:11] LABS: FOLATE > 20.0 ng/mL
--- NOTE | 2016-06-18 23:21 | CON ---
DATE: 06/18/2016 INFECTIOUS DISEASE CONSULTATION REQUESTING PHYSICIAN: Dr. Pace. REASON FOR CONSULTATION: Leukocytosis. The patient admitted with dyspnea, chest pains, anemia, elev ated BUN and creatinine, vertigo and UTI. HISTORY OF PRESENT ILLNESS: The patient is an 80-year-old female with significant multiple medical p roblems including anemia, arthritis of both knees and hips, asthma, CHF, CVA, diabetes, hypertension, hypercholesterolemia, osteoporosis and chronic kidney disease who was admitted on 06/17/2016 with co mplaints of dizziness and feeling weak. The patient states she has been experiencing increasing dizz iness over the past several days, which is worsened today and on the day of admission. Also, states she has been having chest pain, shortness of breath, and decreased p.o. intake. She also presently c omplaining of no bowel movement for the past 2 days. Also, states she has been throwing up with poss ible gastroenteritis. The patient denies any diarrhea. The patient denies any fever or chills. Tosteven marte, infectious disease consultation requested by Dr. Pace because of increasing leukocytosis of 17 ,000 with increasing bands. Also, the patient was noted to be slightly hypotensive with blood pressu re ranging in the zone of 93/59. The patient also has chronic renal insufficiency with present BUN a nd creatinine of 48 and 1.5. The patient presently is on IV Cipro 400 mg q. 12 hourly. ALLERGIES: THE PATIENT IS ALLERGIC TO PENICILLIN. PAST MEDICAL HISTORY: As above, anemia, arthritis both knees and hips and has open reduction interna l fixation femur, I do not know which one. Asthma, CHF, CVA, diabetes, hypertension, hypercholestero lemia, osteoporosis, and chronic kidney disease. Denies history of Alzheimer's disease or dementia. SOCIAL HISTORY: Denies smoking, drinking or alcohol abuse. IMMUNIZATION HISTORY: She is up to date on tetanus toxoid, influenza vaccination and pneumococcal va ccination. REVIEW OF SYSTEMS: RESPIRATORY: Denies any cough or shortness of breath at present. CARDIOVASCULAR SYSTEM: Presently, denies any chest pains. GASTROINTESTINAL: Does complain of severe constipation, no bowel movement for 2 days, lower abdomina l discomfort and pain on pressure. GENITOURINARY: Unremarkable. Denies any dysuria or hematuria. CENTRAL NERVOUS SYSTEM: No headaches, no seizures. Appetite poor. MEDICATIONS: As per chart reviewed. The patient is presently on Cipro 400 q. 12 hourly. The rest o f the medications see MAR. PHYSICAL EXAMINATION: GENERAL: The patient is awake, alert and slightly weak and looks pale. VITAL SIGNS: Blood pressure 93/50, presently 100/60. Respirations 18, pulse of 72. HEENT: Pupils equal, reactive to light and accommodation. Extraocular movements full. Fundus negat azul. Sclerae nonicteric. Conjunctivae normal. JVP not elevated. NECK: Appears to be supple. LUNGS: Fair air entry. No rhonchi, no rales. CARDIOVASCULAR SYSTEM: S1, S2. There is a systolic murmur grade 3/6 at the mitral area. No rubs. ABDOMEN: Soft, but mild tenderness, suprapubic and left lower quadrant. EXTREMITIES: No cyanosis, clubbing or edema. CENTRAL NERVOUS SYSTEM: Awake, moves all extremities, oriented, normal speech. LABORATORY DATA: WBC on admission was 7.3, today WBC is 17.7; H and H of 9.0 and 28.3, platelets 165 and 78% neutrophils, 5% bands. Creatinine 1.5, BUN of 48, GFR is reduced to 33. CKs are low 28. T roponins are negative. UA shows 1+3 leukocyte esterase, WBCs 13, bacteria rare. Chest x-ray: No ac tive disease. CT of the head noted no intracranial hemorrhage. Question old or subacute infarct. B lood cultures 06/17 negative for 24 hours. Urine cultures no growth. ALLERGY TO PENICILLIN. IMPRESSION: 1. Abdominal pain and emesis. Rule out gastroenteritis, rule out small-bowel obstruction with sever e constipation. 2. Leukocytosis, source not very clear. Of course, it could be an intra-abdominal. 3. Chronic renal insufficiency. 4. Diabetes mellitus. 5. Anemia. 6. History of cerebrovascular accident. PLAN: Martinez cultures. We will get sed rate and CRP. Start IV Tygacil 100 mg loading dose followed by 50 q. 12. Decrease IV Cipro to 200 mg q. 24 hourly. I will follow up CBC with differential, SMA-7, liver profile in a.m. Consider CT of the abdomen and pelvis without p.o. contrast, rule out obstruc tion versus small bowel ileus. We will follow along with you. Thank you very much for allowing me to participate in the care of your patient. ADDENDUM: The patient was seen by ENT regarding dizziness, and presently, does not feel dizziness re lated to any ear problem. Considering MRI as suggested. We will follow along with you. Thank you very much for allowing me to participate in the care of your patient. Russ Oreilly MD cc: [id number] TT: 06/18/2016 23:20:50 Confirmation # [id number] Dictation # [id number] mn
--- NOTE | 2016-06-18 23:48 | CP.PCM.CON ---
History of Present Illness - History of Present Illness History of Present Illness: Syncope/Near-Sync/Dizziness 80-year-old female, PMHx includes Anemia, presents to the emergency department with complaints of dizziness. Patient states she has been experiencing sensation of room spinning, over the past several days. Today, dizziness worsened, and was associated with chest pain, shortness of breath and a decreased PO intake, resulting in her coming to the ED for evaluation. Patient notes a Hx of similar symptoms, but it is "stronger" this time. Denies nausea/vomiting, diarrhea, fevers or chills. 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, Surveillance Specialist History/Exam Limitations: no limitations Onset/Duration Of Symptoms: Days Current Symptoms Are (Timing): Still Present Past Medical History Reviewed: Historical Data, Nursing Documentation, Vital Signs Vital Signs: Last Vital Signs Temp 97.9 F 06/17/16 10:19 Pulse 120 H 06/17/16 13:46 Resp 18 06/17/16 13:46 BP 157/69 H 06/17/16 13:46 Pulse Ox 100 06/17/16 13:46 - Medical History PMH: Anemia, Arthritis (KNEES, HIPS), Asthma, CHF, CVA, Diabetes, HTN, Hypercholesterolemia, Osteoporosis, Chronic Kidney Disease Denies: Alzheimer's Disease, Dementia, Left Hip surgery and Right Femur surgery, h/o tremors of UEs and LEs and tongue. - [facility] Procedures OPEN REDUC-INT FIX FEMUR (01/01/13) Family History: States: Unknown Family Hx - Social History Hx Tobacco Use: No Hx Alcohol Use: No Hx Substance Use: No - Immunization History Hx Tetanus Toxoid Vaccination: Yes Hx Influenza Vaccination: Yes Hx Pneumococcal Vaccination: Yes Except As Marked, All Systems Reviewed And Found Negative. Constitutional: Negative for: Fever, Chills Cardiovascular: Positive for: Chest Pain Respiratory: Positive for: Shortness of Breath Gastrointestinal: Negative for: Nausea, Vomiting Musculoskeletal: Negative for: Back Pain Skin: Negative for: Rash Neurological: Positive for: Dizziness Physical Exam - Physical Exam Appears: Non-toxic, No Acute Distress Skin: Warm, Dry, No Rash Head: Atraumatic, Normacephalic Eye(s): bilateral: Normal Inspection, PERRL, EOMI, Other (NO nystagmus) Nose: Normal Oral Mucosa: Moist Lips: Normal Appearing Neck: Normal ROM Chest: Symmetrical, No Tenderness Cardiovascular: Rhythm Regular, Murmur (3/6, systolic) Respiratory: No Accessory Muscle Use Extremity: Normal ROM, No Tenderness, Pedal Edema Neurological/Psych: Oriented x3, Normal Speech ED Course And Treatment - Laboratory Results ECG Rhythm: Sinus Rhythm ECG Interpretation: No Acute Changes Rate From EC O2 Sat by Pulse Oximetry: 97 Progress Note: Bloodwork, EKG, CXR and UA ordered and reviewed. Patient treated with IVF. Pending reassess and dispo IMPRESSION of CT Brain: No evidence of acute intracranial hemorrhage intracranial collection mass effect or midline shift. Moderate atrophy and moderate chronic microvascular ischemic disease. Interval appearance of a focal hypodensity at the right coronal radiata/centrum semiovale may represent subacute or chronic lacunar infarct. Otherwise no interval change. IMPRESSION of CXR: No active disease. VOMITING FEELING SEVERE HEADEACHE TREMORS SOB CHEST PAIN labs remarkable for wbc and bands elevated, but coming down, BUN/Cr elevated and at her baseline. She is receiving 80 mL of saline an hour and not getting more for "History of CHF", but echo on 05/06/14 shows normal EF and no mention of diastolic dysfunction. Past Patient History - Infectious Disease Hx of Infectious Diseases: None - Past Medical History & Family History Past Medical History?: Yes - Past Social History Smoking Status: Never Smoked - CARDIAC Hx Congestive Heart Failure: Yes Hx Hypercholesterolemia: Yes Hx Hypertension: Yes - PULMONARY Hx Asthma: Yes - NEUROLOGICAL Hx Alzheimer's Disease: No Hx Dementia: No - HEENT Hx HEENT Problems: No - RENAL Hx Chronic Kidney Disease: Yes - ENDOCRINE/METABOLIC Hx Diabetes Mellitus Type 1: No Hx Diabetes Mellitus Type 2: Yes - HEMATOLOGICAL/ONCOLOGICAL Hx Anemia: Yes - INTEGUMENTARY Hx Dermatological Problems: No - MUSCULOSKELETAL/RHEUMATOLOGICAL Hx Arthritis: Yes (KNEES, HIPS) Hx Falls: Yes Hx Osteoporosis: Yes - GASTROINTESTINAL Hx Gastrointestinal Disorders: No - GENITOURINARY/GYNECOLOGICAL Hx Genitourinary Disorders: No - PSYCHIATRIC Hx Substance Use: No - SURGICAL HISTORY Hx Surgeries: Yes Hx Orthopedic Surgery: Yes (Left hip replacemetn and right femur) - ANESTHESIA Hx Anesthesia: Yes Hx Anesthesia Reactions: No Hx Malignant Hyperthermia: No Meds Allergies/Adverse Reactions: Allergies Allergy/AdvReac Type Severity Reaction Status Date / Time Penicillins Allergy Verified 06/17/16 10:16 - Medications Medications: Current Medications Acetaminophen (Tylenol 325mg Tab) 650 mg PO Q6 PRN PRN Reason: Pain, moderate (4-7) Last Admin: 06/17/16 22:14 Dose: 650 mg Albuterol (Ventolin Hfa 90 Mcg/Actuation (8 G)) 1 puff IH QID PRN PRN Reason: WHEEZING OR SOB Last Admin: 06/17/16 18:50 Dose: 1 puff Aspirin (Aspirin Chewable) 81 mg PO DAILY [facility] Last Admin: 06/18/16 10:18 Dose: 81 mg Carvedilol (Coreg) 25 mg PO BID [facility] Last Admin: 06/18/16 17:04 Dose: Not Given Docusate Sodium (Colace) 100 mg PO BID [facility] Last Admin: 06/18/16 21:52 Dose: 100 mg Enalapril Maleate (Vasotec) 5 mg PO DAILY [facility] Last Admin: 06/18/16 10:18 Dose: 5 mg Enoxaparin Sodium (Lovenox) 30 mg SC DAILY [facility] Last Admin: 06/18/16 10:18 Dose: 30 mg Ciprofloxacin (Cipro 200mg/100ml D5w) 100 mls @ 100 mls/hr IVPB Q12H [facility] Last Admin: 06/18/16 13:32 Dose: 100 mls/hr Sodium Chloride (Sodium Chloride 0.9%) 1,000 mls @ 80 mls/hr IV .[id number] [facility] Last Admin: 06/18/16 16:51 Dose: 80 mls/hr Tigecycline 50 mg/ Sodium (Chloride) 100 mls @ 100 mls/hr IVPB Q12H [facility] Insulin Human Regular (Novolin R) 0 unit SC ACHS [facility] PRN Reason: Protocol Last Admin: 06/18/16 21:54 Dose: Not Given Metformin HCl (Glucophage) 500 mg PO BIDCC [facility] Last Admin: 06/18/16 17:37 Dose: 500 mg Multivitamins (Hexavitamin) 1 tab PO DAILY [facility] Last Admin: 06/18/16 10:18 Dose: 1 tab Pantoprazole Sodium (Protonix Ec Tab) 40 mg PO DAILY [facility] Last Admin: 06/18/16 10:18 Dose: 40 mg Physical Exam - Neurological Exam Additional comments: Mental Status: Confused. Awake alert, oriented to persons, disoriented to year, disoriented to place on and off. Speech is fluent non coherent Cranial Nerves IIto XII Normal EOM No Nystagnus Pupils are equal Normal Swallowing Tongue is central and is showing fine tremors Motor: Normal tone, fine tremors in all 4 extremities. Normal power, no pronator drift Able to raise both legs equally. DTR 0/4 Toes are down going by plantar stimulation Sensory: Diabetic Sensory deficit peripherally in UEs and LEs( Glove and [place]) Cerebellar: Normal FNT bilaterally Stature and Gait; Unable currently due to Vertigo reported to walk using a walker. Results - Vital Signs Recent Vital Signs: Last Vital Signs Temp 97.6 F 06/18/16 15:40 Pulse 93 H 06/18/16 20:00 Resp 20 06/18/16 15:40 BP 100/62 06/18/16 16:49 Pulse Ox 100 06/18/16 15:40 - Labs Result Diagrams: 06/19/16 07:38 06/19/16 07:38 Labs: Laboratory Results - last 24 hr 06/18/16 06/18/16 06/18/16 06:42 07:03 07:13 WBC 20.6 H D RBC 3.46 L Hgb 8.8 L Hct 27.9 L MCV 80.6 L MCH 25.3 L MCHC 31.4 L RDW 17.5 H Plt Count 185 MPV 10.9 Neut % (Auto) 85.4 H Lymph % (Auto) 9.8 L [place] % (Auto) 4.4 Eos % (Auto) 0.3 Baso % (Auto) 0.1 Neut # 17.6 H Lymph # 2.0 [place] # 0.9 H Eos # 0.1 Baso # 0.0 Neutrophils % (Manual) 72 Band Neutrophils % 9 H Lymphocytes % (Manual) 15 L Monocytes % (Manual) 4 Platelet Estimate Normal Large Platelets Present Polychromasia Slight Hypochromasia (manual) Slight Poikilocytosis (manual Slight Anisocytosis (manual) Slight Spherocytes Slight Ovalocytes Slight Sodium Potassium Chloride Carbon Dioxide Anion Gap BUN Creatinine Est GFR ( Amer) Est GFR (Non-Af Amer) POC Glucose (mg/dL) 253 H Random Glucose Calcium Triglycerides 78 Cholesterol 190 LDL Cholesterol Direct 115 HDL Cholesterol 44 Vitamin B12 > 1000 H Folate > 20.0 06/18/16 06/18/16 06/18/16 07:13 11:14 11:21 WBC 17.7 H RBC 3.52 L Hgb 9.0 L Hct 28.3 L MCV 80.3 L MCH 25.5 L MCHC 31.7 L RDW 17.1 H Plt Count 165 MPV 10.4 Neut % (Auto) 85.8 H Lymph % (Auto) 9.2 L [place] % (Auto) 3.9 Eos % (Auto) 0.8 Baso % (Auto) 0.3 Neut # 15.2 H Lymph # 1.6 [place] # 0.7 Eos # 0.1 Baso # 0.1 Neutrophils % (Manual) 78 H Band Neutrophils % 5 H Lymphocytes % (Manual) 13 L Monocytes % (Manual) 4 Platelet Estimate Normal Large Platelets Polychromasia Hypochromasia (manual) Slight Poikilocytosis (manual Slight Anisocytosis (manual) Slight Spherocytes Ovalocytes Slight Sodium 135 Potassium 4.6 Chloride 101 Carbon Dioxide 23 Anion Gap 16 BUN 48 H Creatinine 1.5 H Est GFR ( Amer) 40 Est GFR (Non-Af Amer) 33 POC Glucose (mg/dL) 251 H Random Glucose 241 H Calcium 8.6 Triglycerides Cholesterol LDL Cholesterol Direct HDL Cholesterol Vitamin B12 Folate 06/18/16 06/18/16 16:06 21:22 WBC RBC Hgb Hct MCV MCH MCHC RDW Plt Count MPV Neut % (Auto) Lymph % (Auto) [place] % (Auto) Eos % (Auto) Baso % (Auto) Neut # Lymph # [place] # Eos # Baso # Neutrophils % (Manual) Band Neutrophils % Lymphocytes % (Manual) Monocytes % (Manual) Platelet Estimate Large Platelets Polychromasia Hypochromasia (manual) Poikilocytosis (manual Anisocytosis (manual) Spherocytes Ovalocytes Sodium Potassium Chloride Carbon Dioxide Anion Gap BUN Creatinine Est GFR ( Amer) Est GFR (Non-Af Amer) POC Glucose (mg/dL) 265 H 248 H Random Glucose Calcium Triglycerides Cholesterol LDL Cholesterol Direct HDL Cholesterol Vitamin B12 Folate Assessment & Plan (1) Acute exacerbation of congestive heart failure Status: Acute (2) Diabetes Status: Acute (3) Dyslipidemia Status: Acute (4) Dyspnea Status: Acute (5) HTN (hypertension) Status: Acute (6) CVA (cerebral vascular accident) Assessment and Plan: Due to the fast course of progress and deterioration, we have to rule it out. Her CT Brain is negative. Status: Acute (7) Seizures Assessment and Plan: Must be ruled out Status: Acute (8) Fine tremor Assessment and Plan: This is not affecting her daily life, not affecting her drinking or eating. Status: Chronic (9) Confused but orients easily Status: Acute (10) Vertigo Assessment and Plan: Since a week, R/O BPPV, Get PT for Eply Maneuver Status: Acute
[2016-06-19] MEDS: Ciprofloxacin 200mg/100ml D5W 100 ML IVPB SCH ×2 (01:09→16:51)
[2016-06-19] MEDS: Sodium Chloride 0.9% 1,000 ML IV SCH ×2 (05:53→16:40)
[2016-06-19 07:55] LABS: BASO % 0.3 % (0.0-2.0); EOS # 0.3 K/uL (0.0-0.7); EOS % 1.8 % (0.0-4.0); HEMATOCRIT 29.4 % (34.0-47.0); LYMPH # 1.8 K/uL (1.0-4.3); LYMPH % 10.1 % (20.0-40.0); MEAN CELL VOLUME 81.7 fL (81.0-99.0); MEAN CORPUSCULAR HEMOGLOBIN 25.3 pg (27.0-31.0); MEAN PLATELET VOLUME 11.1 fL (7.2-11.7); MONO % 5.7 % (0.0-10.0); RED CELL DISTRIBUTION WIDTH 17.5 % (11.5-14.5); WHITE BLOOD COUNT 17.9 K/uL (4.8-10.8)
[2016-06-19 08:03] LABS: POTASSIUM 4.5 mmol/L (3.6-5.2)
[2016-06-19 08:05] LABS: ALB/GLOB RATIO 1.1 (1.0-2.1); BILIRUBIN,DIRECT 0.5 mg/dL (0.0-0.4); BILIRUBIN,TOTAL 0.8 mg/dL (0.2-1.3); TOTAL PROTEIN 6.8 g/dL (6.3-8.3)
[2016-06-19 08:06] LABS: CALCIUM 8.3 mg/dl (8.6-10.4)
[2016-06-19] MEDS: (Novolin R) Insulin Human Regular 100 units/ml vial SC SCH ×4 (08:15→22:01)
[2016-06-19 08:35] LABS: THYROID STIMULATING HORMONE 0.79 mIU/L (0.46-4.68)
--- NOTE | 2016-06-19 11:03 | CT ---
PROCEDURE: CT Abdomen and Pelvis without intravenous contrast HISTORY: r/o sbo/ileus COMPARISON: None. TECHNIQUE: Axial and reformatted coronal and sagittal CT images of the abdomen and pelvis were obtained without IV or oral contrast administration.. Contrast Dose: 0 IV contrast Radiation dose: Total exam DLP = 504.3 mGy-cm. This CT exam was performed using one or more of the following dose reduction techniques: Automated exposure control, adjustment of the mA and/or kV according to patient size, and/or use of iterative reconstruction technique. FINDINGS: LOWER THORAX: Small to moderate bilateral pleural effusions. Moderate cardiomegaly. LIVER: No evidence of acute pathology in the liver. Mild hepatomegaly seen. 4 millimeter calcifications seen at the right liver lobe likely benign granuloma. GALLBLADDER AND BILE DUCTS: No evidence of acute cholecystitis. PANCREAS: Unremarkable. No gross lesion or ductal dilatation. SPLEEN: Unremarkable. ADRENALS: Unremarkable. No mass. KIDNEYS AND URETERS: 5 millimeter nonobstructing calculus at the lower pole of the right kidney. No evidence of hydronephrosis or hydroureter. VASCULATURE: Unremarkable. No aortic aneurysm. BOWEL: Mild constipation is noted. No evidence of small bowel obstruction. No evidence of significant bowel ileus. APPENDIX: No evidence of appendicitis. PERITONEUM: No evidence of free fluid or free air in the abdomen and pelvis. LYMPH NODES: Unremarkable. No enlarged lymph nodes. BLADDER: Unremarkable. REPRODUCTIVE: The uterus is heterogeneous mildly enlarged contains foci of calcification. BONES: Patient status post total left hip replacement. There are also hardware seen at the right femur. OTHER FINDINGS: None. IMPRESSION: No evidence of bowel obstruction or significant bowel ileus. 5 millimeter nonobstructing calculus at the lower pole of the right kidney. Mild constipation. Small to moderate bilateral pleural effusions and moderate cardiomegaly.
--- NOTE | 2016-06-19 11:05 | CP.PCM.PN ---
Subjective - Date & Time of Evaluation Date of Evaluation: 06/19/16 Time of Evaluation: 11:03 - Subjective Subjective: headeack abd pain chest pain loss of apetite Objective - Vital Signs/Intake and Output Vital Signs (last 24 hours): Temp Pulse Resp BP Pulse Ox 99.7 F H 92 H 21 158/79 H 97 06/19/16 08:02 06/19/16 08:02 06/19/16 08:02 06/19/16 08:02 06/19/16 08:02 Intake and Output: 06/19/16 06/19/16 06:59 18:59 Intake Total 790 Balance 790 - Medications Medications: Current Medications Acetaminophen (Tylenol 325mg Tab) 650 mg PO Q6 PRN PRN Reason: Pain, moderate (4-7) Last Admin: 06/17/16 22:14 Dose: 650 mg Albuterol (Ventolin Hfa 90 Mcg/Actuation (8 G)) 1 puff IH QID PRN PRN Reason: WHEEZING OR SOB Last Admin: 06/17/16 18:50 Dose: 1 puff Aspirin (Aspirin Chewable) 81 mg PO DAILY [facility] Last Admin: 06/18/16 10:18 Dose: 81 mg Carvedilol (Coreg) 25 mg PO BID [facility] Last Admin: 06/18/16 17:04 Dose: Not Given Docusate Sodium (Colace) 100 mg PO BID [facility] Last Admin: 06/18/16 21:52 Dose: 100 mg Enalapril Maleate (Vasotec) 5 mg PO DAILY [facility] Last Admin: 06/18/16 10:18 Dose: 5 mg Enoxaparin Sodium (Lovenox) 30 mg SC DAILY [facility] Last Admin: 06/18/16 10:18 Dose: 30 mg Ciprofloxacin (Cipro 200mg/100ml D5w) 100 mls @ 100 mls/hr IVPB Q12H [facility] Last Admin: 06/19/16 01:09 Dose: 100 mls/hr Sodium Chloride (Sodium Chloride 0.9%) 1,000 mls @ 80 mls/hr IV .[id number] [facility] Last Admin: 06/19/16 05:53 Dose: 80 mls/hr Tigecycline 50 mg/ Sodium (Chloride) 100 mls @ 100 mls/hr IVPB Q12H [facility] Last Admin: 06/19/16 05:54 Dose: 100 mls/hr Insulin Human Regular (Novolin R) 0 unit SC ACHS [facility] PRN Reason: Protocol Last Admin: 06/19/16 08:15 Dose: 3 unit Metformin HCl (Glucophage) 500 mg PO BIDCC [facility] Last Admin: 06/19/16 08:15 Dose: 500 mg Multivitamins (Hexavitamin) 1 tab PO DAILY [facility] Last Admin: 06/18/16 10:18 Dose: 1 tab Pantoprazole Sodium (Protonix Ec Tab) 40 mg PO DAILY [facility] Last Admin: 06/18/16 10:18 Dose: 40 mg - Labs Labs: 06/19/16 07:38 06/19/16 07:38 PT 11.0 SECONDS (9.7-12.2) 06/17/16 10:50 INR 1.0 06/17/16 10:50 APTT 29 SECONDS (21-34) 06/17/16 10:50 - Constitutional Appears: Non-toxic, Older Than Stated Age - Head Exam Head Exam: NORMOCEPHALIC - Eye Exam Eye Exam: Normal appearance Pupil Exam: PERRL - ENT Exam ENT Exam: Mucous Membranes Moist - Neck Exam Neck Exam: Full ROM - Respiratory Exam Respiratory Exam: Decreased Breath Sounds - Cardiovascular Exam Cardiovascular Exam: Tachycardia, REGULAR RHYTHM - GI/Abdominal Exam GI & Abdominal Exam: Tenderness - Rectal Exam Rectal Exam: NORMAL INSPECTION - Exam Exam: NORMAL INSPECTION - Extremities Exam Extremities Exam: Full ROM - Back Exam Back Exam: CVA tenderness (L) - Neurological Exam Neurological Exam: Oriented x3 - Psychiatric Exam Psychiatric exam: Anxious - Skin Skin Exam: Pallor Assessment and Plan - Assessment and Plan (Free Text) Assessment: lecocytosis uti headeack tremors arthritis abd pain aneamia loss of apetite Plan: as per orders
[2016-06-19] MEDS: Multiple Vitamins Tab PO SCH (11:15)
[2016-06-19] MEDS: Pantoprazole 40 mg EC Tab PO SCH (11:15)
[2016-06-19] MEDS: Enoxaparin 30 mg Syringe SC SCH (11:16)
[2016-06-19 18:52] LABS: FOLATE > 20.0 ng/mL
--- NOTE | 2016-06-19 22:44 | CP.PCM.CON ---
History of Present Illness - History of Present Illness History of Present Illness: 80 year old female with a history of CHF, HTN, DM, HL admitted with dizziness, found to be anemic and elevated WBC. The patient notes to worsening dizziness for about 1 week. She denies shortness of breath and chest pain. She is aware of having anemia but is unsure of the prior work up. She denies abnormal bleedind and bruising. Past medical history: CHF, HTN, DM, HL Past surgical history: B/L ORIF hips Family history: Denies hematologic and oncologic problems Social history: Denies tobacco, alcohol, and illicit drug use. Allergies: PCN Review of sytsems: All remaining review of systems including HEENT, cardiovascular, respiratory, gastrointestinal, genitourinary, musculoskeletal, dermatologic, neurologic, and psychiatric are neative unless mentioned in the HPI. Past Patient History - Infectious Disease Hx of Infectious Diseases: None - Past Medical History & Family History Past Medical History?: Yes - Past Social History Smoking Status: Never Smoked - CARDIAC Hx Congestive Heart Failure: Yes Hx Hypercholesterolemia: Yes Hx Hypertension: Yes - PULMONARY Hx Asthma: Yes - NEUROLOGICAL Hx Alzheimer's Disease: No Hx Dementia: No - HEENT Hx HEENT Problems: No - RENAL Hx Chronic Kidney Disease: Yes - ENDOCRINE/METABOLIC Hx Diabetes Mellitus Type 1: No Hx Diabetes Mellitus Type 2: Yes - HEMATOLOGICAL/ONCOLOGICAL Hx Anemia: Yes - INTEGUMENTARY Hx Dermatological Problems: No - MUSCULOSKELETAL/RHEUMATOLOGICAL Hx Arthritis: Yes (KNEES, HIPS) Hx Falls: Yes Hx Osteoporosis: Yes - GASTROINTESTINAL Hx Gastrointestinal Disorders: No - GENITOURINARY/GYNECOLOGICAL Hx Genitourinary Disorders: No - PSYCHIATRIC Hx Substance Use: No - SURGICAL HISTORY Hx Surgeries: Yes Hx Orthopedic Surgery: Yes (Left hip replacemetn and right femur) - ANESTHESIA Hx Anesthesia: Yes Hx Anesthesia Reactions: No Hx Malignant Hyperthermia: No Meds Allergies/Adverse Reactions: Allergies Allergy/AdvReac Type Severity Reaction Status Date / Time Penicillins Allergy Verified 06/17/16 10:16 - Medications Medications: Current Medications Acetaminophen (Tylenol 325mg Tab) 650 mg PO Q6 PRN PRN Reason: Pain, moderate (4-7) Last Admin: 06/17/16 22:14 Dose: 650 mg Albuterol (Ventolin Hfa 90 Mcg/Actuation (8 G)) 1 puff IH QID PRN PRN Reason: WHEEZING OR SOB Last Admin: 06/17/16 18:50 Dose: 1 puff Aspirin (Aspirin Chewable) 81 mg PO DAILY [facility] Last Admin: 06/19/16 11:14 Dose: 81 mg Carvedilol (Coreg) 25 mg PO BID [facility] Last Admin: 06/19/16 18:28 Dose: Not Given Docusate Sodium (Colace) 100 mg PO BID [facility] Last Admin: 06/19/16 18:46 Dose: 100 mg Enalapril Maleate (Vasotec) 5 mg PO DAILY [facility] Last Admin: 06/19/16 11:15 Dose: 5 mg Enoxaparin Sodium (Lovenox) 30 mg SC DAILY [facility] Last Admin: 06/19/16 11:16 Dose: 30 mg Ciprofloxacin (Cipro 200mg/100ml D5w) 100 mls @ 100 mls/hr IVPB Q12H [facility] Last Admin: 06/19/16 16:51 Dose: Not Given Sodium Chloride (Sodium Chloride 0.9%) 1,000 mls @ 80 mls/hr IV .[id number] [facility] Last Admin: 06/19/16 16:40 Dose: Not Given Tigecycline 50 mg/ Sodium (Chloride) 100 mls @ 100 mls/hr IVPB Q12H [facility] Last Admin: 06/19/16 19:39 Dose: 100 mls/hr Insulin Human Regular (Novolin R) 0 unit SC [facility] PRN Reason: Protocol Last Admin: 06/19/16 22:01 Dose: Not Given [facility] Last Admin: 06/19/16 18:46 Dose: 500 mg Multivitamins (Hexavitamin) 1 tab PO DAILY [facility] Last Admin: 06/19/16 11:15 Dose: 1 tab Pantoprazole Sodium (Protonix Ec Tab) 40 mg PO DAILY [facility] Last Admin: 06/19/16 11:15 Dose: 40 mg Rosuvastatin Calcium (Crestor) 10 mg PO HS [facility] Last Admin: 06/19/16 21:36 Dose: 10 mg Physical Exam - Head Exam Head Exam: ATRAUMATIC - Eye Exam Eye Exam: Normal appearance - ENT Exam ENT Exam: Mucous Membranes Dry - Respiratory Exam Respiratory Exam: NORMAL BREATHING PATTERN - Cardiovascular Exam Cardiovascular Exam: +S1, +S2 - GI/Abdominal Exam GI & Abdominal Exam: Normal Bowel Sounds - Extremities Exam Extremities exam: Positive for: normal inspection - Neurological Exam Neurological exam: Oriented x3 - Psychiatric Exam Psychiatric exam: Normal Affect, Normal Mood - Skin Skin Exam: Warm Results - Vital Signs Recent Vital Signs: Last Vital Signs Temp 98.4 F 06/19/16 16:51 Pulse 85 06/19/16 16:51 Resp 20 06/19/16 16:51 BP 98/62 L 06/19/16 16:51 Pulse Ox 100 06/19/16 16:51 - Labs Result Diagrams: 06/19/16 07:38 06/19/16 07:38 Labs: Laboratory Results - last 24 hr 06/19/16 06/19/16 06/19/16 06:37 07:38 07:38 WBC 17.9 H RBC 3.60 L Hgb 9.1 L Hct 29.4 L MCV 81.7 MCH 25.3 L MCHC 31.0 L RDW 17.5 H Plt Count 167 MPV 11.1 Neut % (Auto) 82.1 H Lymph % (Auto) 10.1 L [place] % (Auto) 5.7 Eos % (Auto) 1.8 Baso % (Auto) 0.3 Neut # 14.7 H Lymph # 1.8 [place] # 1.0 H Eos # 0.3 Baso # 0.0 ESR 40 H Retic Count Sodium 134 Potassium 4.5 Chloride 101 Carbon Dioxide 21 L Anion Gap 17 BUN 47 H Creatinine 1.3 H Est GFR ( Amer) 48 Est GFR (Non-Af Amer) 39 POC Glucose (mg/dL) 261 H Random Glucose 242 H Calcium 8.3 L Ferritin Total Bilirubin 0.8 Direct Bilirubin 0.5 H AST 20 ALT 21 Alkaline Phosphatase 52 C-React Prot High Sens Total Protein 6.8 Albumin 3.6 Globulin 3.3 Albumin/Globulin Ratio 1.1 Vitamin B12 25-OH Vitamin D Total Folate TSH 3rd Generation 0.79 06/19/16 06/19/16 06/19/16 07:38 07:40 11:11 WBC RBC Hgb Hct MCV MCH MCHC RDW Plt Count MPV Neut % (Auto) Lymph % (Auto) [place] % (Auto) Eos % (Auto) Baso % (Auto) Neut # Lymph # [place] # Eos # Baso # ESR Retic Count Sodium Potassium Chloride Carbon Dioxide Anion Gap BUN Creatinine Est GFR ( Amer) Est GFR (Non-Af Amer) POC Glucose (mg/dL) 256 H Random Glucose Calcium Ferritin Total Bilirubin Direct Bilirubin AST ALT Alkaline Phosphatase C-React Prot High Sens > 15.00 H Total Protein Albumin Globulin Albumin/Globulin Ratio Vitamin B12 25-OH Vitamin D Total 83.1 Folate TSH 3rd Generation 06/19/16 06/19/16 06/19/16 16:40 17:11 17:11 WBC RBC Hgb Hct MCV MCH MCHC RDW Plt Count MPV Neut % (Auto) Lymph % (Auto) [place] % (Auto) Eos % (Auto) Baso % (Auto) Neut # Lymph # [place] # Eos # Baso # ESR Retic Count 1.2 Sodium Potassium Chloride Carbon Dioxide Anion Gap BUN Creatinine Est GFR ( Amer) Est GFR (Non-Af Amer) POC Glucose (mg/dL) 301 H Random Glucose Calcium Ferritin 129.0 Total Bilirubin Direct Bilirubin AST ALT Alkaline Phosphatase C-React Prot High Sens Total Protein Albumin Globulin Albumin/Globulin Ratio Vitamin B12 > 1000 H 25-OH Vitamin D Total Folate > 20.0 TSH 3rd Generation 06/19/16 21:01 WBC RBC Hgb Hct MCV MCH MCHC RDW Plt Count MPV Neut % (Auto) Lymph % (Auto) [place] % (Auto) Eos % (Auto) Baso % (Auto) Neut # Lymph # [place] # Eos # Baso # ESR Retic Count Sodium Potassium Chloride Carbon Dioxide Anion Gap BUN Creatinine Est GFR ( Amer) Est GFR (Non-Af Amer) POC Glucose (mg/dL) 281 H Random Glucose Calcium Ferritin Total Bilirubin Direct Bilirubin AST ALT Alkaline Phosphatase C-React Prot High Sens Total Protein Albumin Globulin Albumin/Globulin Ratio Vitamin B12 25-OH Vitamin D Total Folate TSH 3rd Generation Assessment & Plan (1) Anemia Assessment and Plan: will check ferritin, retic count, b12, folate, FOBT to further characterize element of anemia of CKD Status: Acute (2) Leukocytosis Assessment and Plan: on antibiotics Thank you for this interesting consult. Status: Acute
--- NOTE | 2016-06-20 00:53 | CP.PCM.PN ---
Subjective - Date & Time of Evaluation Date of Evaluation: 06/19/16 Time of Evaluation: 21:20 - Subjective Subjective: No major deterioration in her condition. She still feels vertigo, is not dehydrated anymore since admission. She will need to be seen by PT to assess for vertigo, and Eply maneuver might help. IMPRESSION of CT Abdomen and Pelvis: No evidence of bowel obstruction or significant bowel ileus. 5 millimeter nonobstructing calculus at the lower pole of the right kidney. Mild constipation. Small to moderate bilateral pleural effusions and moderate cardiomegaly. BP is fluctuating. Objective - Vital Signs/Intake and Output Vital Signs (last 24 hours): Temp Pulse Resp BP Pulse Ox 98 F 82 20 144/74 99 06/19/16 23:45 06/19/16 23:45 06/19/16 23:45 06/19/16 23:45 06/19/16 23:45 Intake and Output: 06/19/16 06/20/16 18:59 06:59 Intake Total 530 Balance 530 - Medications Medications: Current Medications Acetaminophen (Tylenol 325mg Tab) 650 mg PO Q6 PRN PRN Reason: Pain, moderate (4-7) Last Admin: 06/17/16 22:14 Dose: 650 mg Albuterol (Ventolin Hfa 90 Mcg/Actuation (8 G)) 1 puff IH QID PRN PRN Reason: WHEEZING OR SOB Last Admin: 06/17/16 18:50 Dose: 1 puff Aspirin (Aspirin Chewable) 81 mg PO DAILY [facility] Last Admin: 06/19/16 11:14 Dose: 81 mg Carvedilol (Coreg) 25 mg PO BID [facility] Last Admin: 06/19/16 18:28 Dose: Not Given Docusate Sodium (Colace) 100 mg PO BID [facility] Last Admin: 06/19/16 18:46 Dose: 100 mg Enalapril Maleate (Vasotec) 5 mg PO DAILY [facility] Last Admin: 06/19/16 11:15 Dose: 5 mg Enoxaparin Sodium (Lovenox) 30 mg SC DAILY [facility] Last Admin: 06/19/16 11:16 Dose: 30 mg Ciprofloxacin (Cipro 200mg/100ml D5w) 100 mls @ 100 mls/hr IVPB Q12H [facility] Last Admin: 06/19/16 16:51 Dose: Not Given Sodium Chloride (Sodium Chloride 0.9%) 1,000 mls @ 80 mls/hr IV .[id number] [facility] Last Admin: 06/19/16 16:40 Dose: Not Given Tigecycline 50 mg/ Sodium (Chloride) 100 mls @ 100 mls/hr IVPB Q12H [facility] Last Admin: 06/19/16 19:39 Dose: 100 mls/hr Insulin Human Regular (Novolin R) 0 unit SC ACHS [facility] PRN Reason: Protocol Last Admin: 06/19/16 22:01 Dose: Not Given Metformin HCl (Glucophage) 500 mg PO BIDCC [facility] Last Admin: 06/19/16 18:46 Dose: 500 mg Multivitamins (Hexavitamin) 1 tab PO DAILY [facility] Last Admin: 06/19/16 11:15 Dose: 1 tab Pantoprazole Sodium (Protonix Ec Tab) 40 mg PO DAILY [facility] Last Admin: 06/19/16 11:15 Dose: 40 mg Rosuvastatin Calcium (Crestor) 10 mg PO HS [facility] Last Admin: 06/19/16 21:36 Dose: 10 mg - Labs Labs: 06/19/16 07:38 06/19/16 07:38 PT 11.0 SECONDS (9.7-12.2) 06/17/16 10:50 INR 1.0 06/17/16 10:50 APTT 29 SECONDS (21-34) 06/17/16 10:50 Assessment and Plan (1) Acute exacerbation of congestive heart failure Status: Acute (2) Diabetes Status: Acute (3) Dyslipidemia Status: Acute (4) Dyspnea Status: Acute (5) HTN (hypertension) Status: Acute (6) CVA (cerebral vascular accident) Status: Acute (7) Seizures Status: Acute (8) Fine tremor Status: Chronic (9) Confused but orients easily Status: Acute (10) Vertigo Status: Acute
[2016-06-20] MEDS: Ciprofloxacin 200mg/100ml D5W 100 ML IVPB SCH ×2 (02:00→13:15)
[2016-06-20] MEDS: (Novolin R) Insulin Human Regular 100 units/ml vial SC SCH ×4 (07:54→21:27)
[2016-06-20] MEDS: Pantoprazole 40 mg EC Tab PO SCH (10:47)
[2016-06-20] MEDS: Multiple Vitamins Tab PO SCH (10:50)
[2016-06-20] MEDS: Enoxaparin 30 mg Syringe SC SCH (10:50)
[2016-06-20 12:11] LABS: BASO # 0.1 K/uL (0.0-0.2); BASO % 0.6 % (0.0-2.0); EOS # 0.3 K/uL (0.0-0.7); HEMATOCRIT 26.2 % (34.0-47.0); LYMPH # 1.1 K/uL (1.0-4.3); LYMPH % 10.2 % (20.0-40.0); MEAN CELL VOLUME 81.1 fL (81.0-99.0); MEAN CORPUSCULAR HEMOGLOBIN 25.9 pg (27.0-31.0); MEAN CORPUSCULAR HGB CONC 31.9 g/dL (33.0-37.0); MEAN PLATELET VOLUME 10.9 fL (7.2-11.7); MONO # 0.9 K/uL (0.0-0.8); RED CELL DISTRIBUTION WIDTH 17.4 % (11.5-14.5)
[2016-06-20 12:13] LABS: POTASSIUM 4.6 mmol/L (3.6-5.2)
[2016-06-20 12:16] LABS: CALCIUM 7.9 mg/dl (8.6-10.4)
--- NOTE | 2016-06-20 12:53 | CP.PCM.PN ---
Subjective - Date & Time of Evaluation Date of Evaluation: 06/20/16 Time of Evaluation: 12:52 - Subjective Subjective: CHIEF COMPLAINTS TODAY : afebrile, c/o severe constipation. Poor appetite,Feeling weak ROS. HEENT : N. Resp : No cough, wheezing ,pleuritic CP ,or hemoptysis Cardio : No anginal CP, PND, orthopnea, palpitation GI : No abd.pain, n/v ,diarrhea or GI bleeding .+ve SEVERE CONSTIPATION. 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 Ext : No swelling ,calf pain PE. Pt. is alert awake in no distress. V.S As noted in the chart Head ,ear nose,throat and eyes : Normal. Neck : Supple with normal carotids. Lungs: Clear air entry. Heart : S1 & S2 normal with S4. No murmur. Abd : Soft MILD TENDERNESS EPIGASTRIC/MID ABDOMEN with normal bowel sounds. Neuro : Moves all ext. with no localized deficit. Ext : No edema with intact pulses.Non tender calves Derm : No rashes or decubitus ulcer. LABS/RADIOLOGY: wbc IMPROVED 11.0 H/H DROPPED TO 8.4/HEMATOCRIT 26.2. cREATININE 1.3/bun 50 GFR 39 LOW. STOOL +VE OCCULT blood ct OF THE ABDOMEN AND PELVIS W/O -CONTRAST NOTED Objective - Vital Signs/Intake and Output Vital Signs (last 24 hours): Temp Pulse Resp BP Pulse Ox 98 F 87 20 145/74 99 06/19/16 23:45 06/20/16 01:29 06/19/16 23:45 06/20/16 10:50 06/19/16 23:45 Intake and Output: 06/20/16 06/20/16 06:59 18:59 Intake Total 740 Balance 740 - Medications Medications: Current Medications Acetaminophen (Tylenol 325mg Tab) 650 mg PO Q6 PRN PRN Reason: Pain, moderate (4-7) Last Admin: 06/17/16 22:14 Dose: 650 mg Albuterol (Ventolin Hfa 90 Mcg/Actuation (8 G)) 1 puff IH QID PRN PRN Reason: WHEEZING OR SOB Last Admin: 06/17/16 18:50 Dose: 1 puff Aspirin (Aspirin Chewable) 81 mg PO DAILY [facility] Last Admin: 06/20/16 10:50 Dose: 81 mg Carvedilol (Coreg) 25 mg PO BID [facility] Last Admin: 06/20/16 10:50 Dose: 25 mg Docusate Sodium (Colace) 100 mg PO BID [facility] Last Admin: 06/20/16 10:46 Dose: 100 mg Enalapril Maleate (Vasotec) 5 mg PO DAILY [facility] Last Admin: 06/20/16 10:50 Dose: 5 mg Enoxaparin Sodium (Lovenox) 30 mg SC DAILY [facility] Last Admin: 06/20/16 10:50 Dose: 30 mg Ciprofloxacin (Cipro 200mg/100ml D5w) 100 mls @ 100 mls/hr IVPB Q12H [facility] Last Admin: 06/20/16 02:00 Dose: 100 mls/hr Sodium Chloride (Sodium Chloride 0.9%) 1,000 mls @ 80 mls/hr IV .[id number] [facility] Last Admin: 06/19/16 16:40 Dose: Not Given Tigecycline 50 mg/ Sodium (Chloride) 100 mls @ 100 mls/hr IVPB Q12H [facility] Last Admin: 06/20/16 05:55 Dose: 100 mls/hr Insulin Human Regular (Novolin R) 0 unit SC ACHS [facility] PRN Reason: Protocol Last Admin: 06/20/16 11:46 Dose: 3 unit [facility] Last Admin: 06/20/16 07:55 Dose: 500 mg Multivitamins (Hexavitamin) 1 tab PO DAILY [facility] Last Admin: 06/20/16 10:50 Dose: 1 tab Pantoprazole Sodium (Protonix Ec Tab) 40 mg PO DAILY [facility] Last Admin: 06/20/16 10:47 Dose: 40 mg Rosuvastatin Calcium (Crestor) 10 mg PO HS [facility] Last Admin: 06/19/16 21:36 Dose: 10 mg - Labs Labs: 06/20/16 11:57 06/20/16 11:57 PT 11.0 SECONDS (9.7-12.2) 06/17/16 10:50 INR 1.0 06/17/16 10:50 APTT 29 SECONDS (21-34) 06/17/16 10:50 Assessment and Plan (1) Leukocytosis Status: Acute (2) Abdominal pain Status: Acute (3) Anemia Status: Acute (4) Constipation Status: Acute (5) Chronic renal insufficiency Status: Acute (6) Diabetes Status: Acute - Assessment and Plan (Free Text) Assessment: IMPRESSION; LEUKOCYTOSIS-IMPROVING Abdominal pain/WITH EMESIS ? GASTROENTERITIS. Anemia r/o GI bleeding versus malignancy. Constipation. Chronic renal insufficiency. Diabetes mellitus. PLAN ; CONTINUE iv tYGACIL 50 MG EVERY 12 HOURLY 06/18 CONTINUE iv CIPRO 200 MG EVERY 12 HOURLY 06/18. GI W/U /CONSULT. WATCH H/H fOLLOW-UP RENAL FUNCTIONS CLOSELY. iv FLUIDS PER HR RECRUITER. wILL FOLLOW ALONG WITH YOU. cASE DISCUSSED WITH dR. Baumann.
--- NOTE | 2016-06-20 13:12 | VASCLAB ---
PROCEDURE: HISTORY: new CVA COMPARISON: None available. TECHNIQUE: Grayscale and duplex Doppler evaluation of the cervical carotid and vertebral arteries were performed. The common carotid, carotid bifurcations and cervical Internal Carotid Artery (ICA) and proximal External Carotid Artery (ECA) were evaluated. The vertebral arteries were evaluated for gross patency and flow direction. Report prepared by James Forrest, BS, RVT FINDINGS: RIGHT CAROTID ARTERIES: 1. Common Carotid Artery: No significant focal plaque formation of the right common carotid artery. Maximum Peak Systolic velocity: 89 cm/sec: End-diastolic velocity 12 cm/sec. 2. Carotid Bifurcation: Calcific plaque formation. Maximum Peak Systolic velocity: 96 cm/sec: End-diastolic velocity 12 cm/sec. 3. Internal Carotid Artery: Severe plaque formation of the right proximal ICA which dose not results in a hemodynamically significant stenosis. Plaque description: 3.1. Proximal Segment: Peak systolic velocity 86 cm/sec: End-diastolic velocity 16 cm/sec - % stenosis 0-15% 3.2. Middle Segment: Peak systolic velocity 117 cm/sec: End-diastolic velocity 22 cm/sec - % stenosis 0-15% 3.3. Distal Segment: Peak systolic velocity 122 cm/sec: End-diastolic velocity 28 cm/sec - % stenosis 0-15% 4. External Carotid Artery: No significant focal plaque formation. Peak systolic velocity 96 cm/sec 5. ICA/CCA Ratio: 1.4 LEFT CAROTID ARTERIES: 1. Common Carotid Artery: No significant focal plaque formation of the left common carotid artery. Maximum Peak Systolic velocity: 75 cm/sec: End-diastolic velocity 11 cm/sec. 2. Carotid Bifurcation: plaque formation. Maximum Peak Systolic velocity: 64 cm/sec: End-diastolic velocity 11 cm/sec. 3. Internal Carotid Artery: Minimal plaque formation of the left proximal ICA which does not result in hemodynamically significant stenosis. Plaque description: 3.1. Proximal Segment: Peak systolic velocity 80 cm/sec: End-diastolic velocity 17 cm/sec - % stenosis 0-15% 3.2. Middle Segment: Peak systolic velocity 109 cm/sec: End-diastolic velocity 23 cm/sec - % stenosis 0-15% 3.3. Distal Segment: Peak systolic velocity 101 cm/sec: End-diastolic velocity 23 cm/sec - % stenosis 0-15% 4. External Carotid Artery: No significant focal plaque formation. Peak systolic velocity 109 cm/sec 5. ICA/CCA Ratio: 1.4 VERTEBRAL ARTERIES: 1. Right Vertebral Artery: The right vertebral artery flow direction is antegrade. 2. Left Vertebral Artery: The left vertebral artery flow direction is antegrade. OTHER FINDINGS: 1. Right Brachial Blood pressure: 128 mmHg. 2. Left Brachial Blood pressure: 124 mmHg. IMPRESSION: RIGHT: Duplex scan does not suggest hemodynamically significant stenosis of the right extracranial carotid arteries. LEFT: Duplex scan does not suggest hemodynamically significant stenosis of the left extracranial carotid arteries.
--- NOTE | 2016-06-20 15:59 | CP.PCM.PN ---
Subjective - Date & Time of Evaluation Date of Evaluation: 06/20/16 Time of Evaluation: 15:56 - Subjective Subjective: C/O constipation Nurse reports poor PO intake No CP or SOB Objective - Vital Signs/Intake and Output Vital Signs (last 24 hours): Temp Pulse Resp BP Pulse Ox 98 F 87 20 145/74 99 06/19/16 23:45 06/20/16 01:29 06/19/16 23:45 06/20/16 10:50 06/19/16 23:45 Intake and Output: 06/20/16 06/20/16 06:59 18:59 Intake Total 740 Balance 740 - Medications Medications: Current Medications Acetaminophen (Tylenol 325mg Tab) 650 mg PO Q6 PRN PRN Reason: Pain, moderate (4-7) Last Admin: 06/17/16 22:14 Dose: 650 mg Albuterol (Ventolin Hfa 90 Mcg/Actuation (8 G)) 1 puff IH QID PRN PRN Reason: WHEEZING OR SOB Last Admin: 06/17/16 18:50 Dose: 1 puff Aspirin (Aspirin Chewable) 81 mg PO DAILY [facility] Last Admin: 06/20/16 10:50 Dose: 81 mg Carvedilol (Coreg) 25 mg PO BID [facility] Last Admin: 06/20/16 10:50 Dose: 25 mg Docusate Sodium (Colace) 100 mg PO BID [facility] Last Admin: 06/20/16 10:46 Dose: 100 mg Enalapril Maleate (Vasotec) 5 mg PO DAILY [facility] Last Admin: 06/20/16 10:50 Dose: 5 mg Enoxaparin Sodium (Lovenox) 30 mg SC DAILY [facility] Last Admin: 06/20/16 10:50 Dose: 30 mg Sodium Chloride (Sodium Chloride 0.9%) 1,000 mls @ 80 mls/hr IV .[id number] [facility] Last Admin: 06/19/16 16:40 Dose: Not Given Tigecycline 50 mg/ Sodium (Chloride) 100 mls @ 100 mls/hr IVPB Q12H [facility] Last Admin: 06/20/16 05:55 Dose: 100 mls/hr Ciprofloxacin (Cipro 200mg/100ml D5w) 100 mls @ 100 mls/hr IVPB DAILY [facility] Insulin Human Regular (Novolin R) 0 unit SC ACHS [facility] PRN Reason: Protocol Last Admin: 06/20/16 11:46 Dose: 3 unit Metformin HCl (Glucophage) 500 mg PO BIDCC [facility] Last Admin: 06/20/16 07:55 Dose: 500 mg Multivitamins (Hexavitamin) 1 tab PO DAILY [facility] Last Admin: 06/20/16 10:50 Dose: 1 tab Pantoprazole Sodium (Protonix Ec Tab) 40 mg PO DAILY [facility] Last Admin: 06/20/16 10:47 Dose: 40 mg Rosuvastatin Calcium (Crestor) 10 mg PO HS [facility] Last Admin: 06/19/16 21:36 Dose: 10 mg - Labs Labs: 06/20/16 11:57 06/20/16 11:57 PT 11.0 SECONDS (9.7-12.2) 06/17/16 10:50 INR 1.0 06/17/16 10:50 APTT 29 SECONDS (21-34) 06/17/16 10:50 - Constitutional Appears: Chronically Ill - Head Exam Head Exam: ATRAUMATIC, NORMAL INSPECTION, NORMOCEPHALIC - Eye Exam Eye Exam: EOMI, Normal appearance, PERRL - ENT Exam ENT Exam: Mucous Membranes Moist, Normal Oropharynx - Neck Exam Neck Exam: Full ROM. absent: Tenderness, Thyromegaly - Respiratory Exam Respiratory Exam: Clear to Ausculation Bilateral, NORMAL BREATHING PATTERN. absent: Rhonchi, Wheezes - Cardiovascular Exam Cardiovascular Exam: REGULAR RHYTHM, +S1, +S2. absent: +S4, Murmur - GI/Abdominal Exam GI & Abdominal Exam: Soft. absent: Tenderness, Rebound - Extremities Exam Extremities Exam: Full ROM. absent: Pedal Edema - Neurological Exam Neurological Exam: Alert, Awake - Skin Skin Exam: Normal Color, Warm Assessment and Plan - Assessment and Plan (Free Text) Assessment: 80 year old female with vomiting and fatigue - suspcious for gastroenteritis or other infectious process Known normal LV systolic with acute on chronic Diastolic CHF - currently volume depleted, known Hx of moderate Mitral stenosis so administer fluid with caution. Normal stress test 2014 Leukocytosis acute improving DM - insulin sliding scale: sugars still moderate CKD - chronic and stable - non-obstructing stone seen on CT Acute on chronic anemia: Heme on board; no gross bleeding HTN: controlled on Coreg, vasotoec CAD prevention: on ASA and Statin
--- NOTE | 2016-06-20 16:47 | CP.PCM.PN ---
Subjective - Date & Time of Evaluation Date of Evaluation: 06/20/16 Time of Evaluation: 16:44 - Subjective Subjective: canot eats vomit s no aoetite no bowel movements Objective - Vital Signs/Intake and Output Vital Signs (last 24 hours): Temp Pulse Resp BP Pulse Ox 98 F 73 20 137/72 100 06/20/16 16:00 06/20/16 16:00 06/20/16 16:00 06/20/16 16:00 06/20/16 16:00 Intake and Output: 06/20/16 06/20/16 06:59 18:59 Intake Total 740 650 Balance 740 650 - Medications Medications: Current Medications Acetaminophen (Tylenol 325mg Tab) 650 mg PO Q6 PRN PRN Reason: Pain, moderate (4-7) Last Admin: 06/17/16 22:14 Dose: 650 mg Albuterol (Ventolin Hfa 90 Mcg/Actuation (8 G)) 1 puff IH QID PRN PRN Reason: WHEEZING OR SOB Last Admin: 06/17/16 18:50 Dose: 1 puff Aspirin (Aspirin Chewable) 81 mg PO DAILY [facility] Last Admin: 06/20/16 10:50 Dose: 81 mg Carvedilol (Coreg) 25 mg PO BID [facility] Last Admin: 06/20/16 10:50 Dose: 25 mg Docusate Sodium (Colace) 100 mg PO BID [facility] Last Admin: 06/20/16 10:46 Dose: 100 mg Enalapril Maleate (Vasotec) 5 mg PO DAILY [facility] Last Admin: 06/20/16 10:50 Dose: 5 mg Enoxaparin Sodium (Lovenox) 30 mg SC DAILY [facility] Last Admin: 06/20/16 10:50 Dose: 30 mg Sodium Chloride (Sodium Chloride 0.9%) 1,000 mls @ 80 mls/hr IV .[id number] [facility] Last Admin: 06/19/16 16:40 Dose: Not Given Tigecycline 50 mg/ Sodium (Chloride) 100 mls @ 100 mls/hr IVPB Q12H [facility] Last Admin: 06/20/16 05:55 Dose: 100 mls/hr Ciprofloxacin (Cipro 200mg/100ml D5w) 100 mls @ 100 mls/hr IVPB DAILY [facility] Insulin Human Regular (Novolin R) 0 unit SC ACHS [facility] PRN Reason: Protocol Last Admin: 06/20/16 11:46 Dose: 3 unit Metformin HCl (Glucophage) 500 mg PO BIDCC [facility] Last Admin: 06/20/16 07:55 Dose: 500 mg Multivitamins (Hexavitamin) 1 tab PO DAILY [facility] Last Admin: 06/20/16 10:50 Dose: 1 tab Pantoprazole Sodium (Protonix Ec Tab) 40 mg PO DAILY [facility] Last Admin: 06/20/16 10:47 Dose: 40 mg Rosuvastatin Calcium (Crestor) 10 mg PO HS [facility] Last Admin: 06/19/16 21:36 Dose: 10 mg - Labs Labs: 06/20/16 11:57 06/20/16 11:57 PT 11.0 SECONDS (9.7-12.2) 06/17/16 10:50 INR 1.0 06/17/16 10:50 APTT 29 SECONDS (21-34) 06/17/16 10:50 - Constitutional Appears: Non-toxic - Head Exam Head Exam: NORMAL INSPECTION - Eye Exam Eye Exam: Normal appearance Pupil Exam: NORMAL ACCOMODATION - ENT Exam ENT Exam: Mucous Membranes Moist - Neck Exam Neck Exam: Full ROM - Respiratory Exam Respiratory Exam: Decreased Breath Sounds - Cardiovascular Exam Cardiovascular Exam: REGULAR RHYTHM - GI/Abdominal Exam GI & Abdominal Exam: Distended, Tenderness - Rectal Exam Rectal Exam: NORMAL INSPECTION - Extremities Exam Extremities Exam: Normal Inspection - Back Exam Back Exam: NORMAL INSPECTION - Neurological Exam Neurological Exam: Alert, Oriented x3 - Psychiatric Exam Psychiatric exam: Normal Affect - Skin Skin Exam: Normal Color, Pallor Assessment and Plan - Assessment and Plan (Free Text) Assessment: vomiting constipation no apetite carotid atherosclerosis dmuncontroled Plan: as per orders
[2016-06-20] MEDS: Bisacodyl 5mg EC Tab PO ONE ×2 (17:03→17:39)
--- NOTE | 2016-06-21 00:31 | CP.PCM.PN ---
Subjective - Date & Time of Evaluation Date of Evaluation: 06/20/16 Time of Evaluation: 22:00 - Subjective Subjective: Doing better in her labs, less leukocytosis, no fever. However she has less appetite, less ability to have oral intake, and refuses some of her medicine. Dr Chico Hernandez of GI is called for Blood in stools and h/o constipation. Less Hyperglycemia on Insulin Sliding Scale. Objective - Vital Signs/Intake and Output Vital Signs (last 24 hours): Temp Pulse Resp BP Pulse Ox 97.7 F 76 18 136/70 97 06/20/16 23:25 06/20/16 23:25 06/20/16 23:25 06/20/16 23:25 06/20/16 23:25 Intake and Output: 06/20/16 06/21/16 18:59 06:59 Intake Total 650 Balance 650 - Medications Medications: Current Medications Acetaminophen (Tylenol 325mg Tab) 650 mg PO Q6 PRN PRN Reason: Pain, moderate (4-7) Last Admin: 06/17/16 22:14 Dose: 650 mg Albuterol (Ventolin Hfa 90 Mcg/Actuation (8 G)) 1 puff IH QID PRN PRN Reason: WHEEZING OR SOB Last Admin: 06/17/16 18:50 Dose: 1 puff Carvedilol (Coreg) 25 mg PO BID [facility] Last Admin: 06/20/16 17:38 Dose: 25 mg Docusate Sodium (Colace) 100 mg PO BID [facility] Last Admin: 06/20/16 17:38 Dose: 100 mg Enalapril Maleate (Vasotec) 5 mg PO DAILY [facility] Last Admin: 06/20/16 10:50 Dose: 5 mg Enoxaparin Sodium (Lovenox) 30 mg SC DAILY [facility] Last Admin: 06/20/16 10:50 Dose: 30 mg Furosemide (Lasix) 40 mg IVP DAILY [facility] Last Admin: 06/20/16 16:56 Dose: 40 mg Sodium Chloride (Sodium Chloride 0.9%) 1,000 mls @ 80 mls/hr IV .[id number] [facility] Last Admin: 06/19/16 16:40 Dose: Not Given Tigecycline 50 mg/ Sodium (Chloride) 100 mls @ 100 mls/hr IVPB Q12H [facility] Last Admin: 06/20/16 17:38 Dose: 100 mls/hr Ciprofloxacin (Cipro 200mg/100ml D5w) 100 mls @ 100 mls/hr IVPB DAILY [facility] Insulin Human Regular (Novolin R) 0 unit SC ACHS [facility] PRN Reason: Protocol Last Admin: 06/20/16 21:27 Dose: Not Given Metformin HCl (Glucophage) 500 mg PO BIDCC [facility] Last Admin: 06/20/16 16:56 Dose: 500 mg Multivitamins (Hexavitamin) 1 tab PO DAILY [facility] Last Admin: 06/20/16 10:50 Dose: 1 tab Pantoprazole Sodium (Protonix Ec Tab) 40 mg PO DAILY [facility] Last Admin: 06/20/16 10:47 Dose: 40 mg Rosuvastatin Calcium (Crestor) 10 mg PO HS [facility] Last Admin: 06/20/16 21:29 Dose: 10 mg - Labs Labs: 06/20/16 11:57 06/20/16 11:57 PT 11.0 SECONDS (9.7-12.2) 06/17/16 10:50 INR 1.0 06/17/16 10:50 APTT 29 SECONDS (21-34) 06/17/16 10:50 Assessment and Plan (1) Acute exacerbation of congestive heart failure Status: Acute (2) Diabetes Status: Acute (3) Dyslipidemia Status: Acute (4) Dyspnea Status: Acute (5) HTN (hypertension) Status: Acute (6) CVA (cerebral vascular accident) Status: Acute (7) Seizures Status: Acute (8) Fine tremor Status: Chronic (9) Confused but orients easily Status: Acute (10) Vertigo Status: Acute
[2016-06-21] MEDS: Sodium Chloride 0.9% 1,000 ML IV SCH ×4 (04:50→06:11)
[2016-06-21 06:35] LABS: POTASSIUM 4.1 mmol/L (3.6-5.2)
[2016-06-21 06:38] LABS: CALCIUM 7.9 mg/dl (8.6-10.4)
[2016-06-21 07:05] LABS: CARCINOEMBRYONIC ANTIGEN 1.4 ng/mL (0-3.0)
[2016-06-21] MEDS: Ciprofloxacin 200mg/100ml D5W 100 ML IVPB SCH (09:40)
[2016-06-21] MEDS: Enoxaparin 30 mg Syringe SC SCH (09:41)
[2016-06-21] MEDS: Pantoprazole 40 mg EC Tab PO SCH (09:41)
[2016-06-21] MEDS: (Novolin R) Insulin Human Regular 100 units/ml vial SC SCH ×4 (09:41→21:17)
[2016-06-21] MEDS: Multiple Vitamins Tab PO SCH (09:42)
--- NOTE | 2016-06-21 10:01 | CP.PCM.PN ---
Subjective - Date & Time of Evaluation Date of Evaluation: 06/21/16 Time of Evaluation: 09:58 - Subjective Subjective: pt unable to eate vomitsregular food has stoole oositive blood Objective - Vital Signs/Intake and Output Vital Signs (last 24 hours): Temp Pulse Resp BP Pulse Ox 98.1 F 78 20 143/83 96 06/21/16 08:30 06/21/16 08:30 06/21/16 08:30 06/21/16 09:42 06/21/16 08:30 Intake and Output: 06/21/16 06/21/16 06:59 18:59 Intake Total 740 Balance 740 - Medications Medications: Current Medications Acetaminophen (Tylenol 325mg Tab) 650 mg PO Q6 PRN PRN Reason: Pain, moderate (4-7) Last Admin: 06/17/16 22:14 Dose: 650 mg Albuterol (Ventolin Hfa 90 Mcg/Actuation (8 G)) 1 puff IH QID PRN PRN Reason: WHEEZING OR SOB Last Admin: 06/17/16 18:50 Dose: 1 puff Carvedilol (Coreg) 25 mg PO BID [facility] Last Admin: 06/21/16 09:42 Dose: 25 mg Enalapril Maleate (Vasotec) 5 mg PO DAILY [facility] Last Admin: 06/21/16 09:42 Dose: 5 mg Enoxaparin Sodium (Lovenox) 30 mg SC DAILY [facility] Last Admin: 06/21/16 09:41 Dose: 30 mg Furosemide (Lasix) 40 mg IVP DAILY [facility] Last Admin: 06/21/16 09:41 Dose: 40 mg Tigecycline 50 mg/ Sodium (Chloride) 100 mls @ 100 mls/hr IVPB Q12H [facility] Last Admin: 06/20/16 17:38 Dose: 100 mls/hr Ciprofloxacin (Cipro 200mg/100ml D5w) 100 mls @ 100 mls/hr IVPB DAILY [facility] Last Admin: 06/21/16 09:40 Dose: 100 mls/hr Insulin Human Regular (Novolin R) 0 unit SC ACHS [facility] PRN Reason: Protocol Last Admin: 06/21/16 09:41 Dose: 3 [facility] Last Admin: 06/21/16 09:41 Dose: 500 mg Metoclopramide HCl (Reglan) 5 mg PO ACHS [facility] Multivitamins (Hexavitamin) 1 tab PO DAILY [facility] Last Admin: 06/21/16 09:42 Dose: 1 tab Pantoprazole Sodium (Protonix Ec Tab) 40 mg PO DAILY [facility] Last Admin: 06/21/16 09:41 Dose: 40 mg Rosuvastatin Calcium (Crestor) 10 mg PO HS [facility] Last Admin: 06/20/16 21:29 Dose: 10 mg - Labs Labs: 06/20/16 11:57 06/21/16 06:12 PT 11.0 SECONDS (9.7-12.2) 06/17/16 10:50 INR 1.0 06/17/16 10:50 APTT 29 SECONDS (21-34) 06/17/16 10:50 - Constitutional Appears: Non-toxic - Head Exam Head Exam: NORMAL INSPECTION - Eye Exam Eye Exam: Normal appearance Pupil Exam: NORMAL ACCOMODATION - ENT Exam ENT Exam: Mucous Membranes Dry - Neck Exam Neck Exam: Full ROM - Respiratory Exam Respiratory Exam: Decreased Breath Sounds - Cardiovascular Exam Cardiovascular Exam: REGULAR RHYTHM - GI/Abdominal Exam GI & Abdominal Exam: Tenderness - Extremities Exam Extremities Exam: Normal Inspection - Back Exam Back Exam: NORMAL INSPECTION - Neurological Exam Neurological Exam: Alert, Oriented x3 - Psychiatric Exam Psychiatric exam: Normal Affect - Skin Skin Exam: Pallor Assessment and Plan - Assessment and Plan (Free Text) Assessment: pleural efusion voniting loss of apetite gi bleeding Plan: will discuss with dr seals
--- NOTE | 2016-06-21 10:28 | PN ---
DATE: 06/21/2016 LOCATION: 55 This is an 80-year-old female seen for GI consultation on 06/20/2016 as requested by the admitting MD and seen again in rounds today. The patient still has very poor oral intake to near none, was found to have again guaiac positive stool with most recent lab results showed low hemoglobin of 8.4, hemato crit 26.2 with leukocytosis of 11.0, but normal platelet count with low sodium 131, CO2 content 21, B UN 55, creatinine 1.3 with blood glucose level poorly controlled, it is 255 with low calcium 7.9. Ag ain, the entire chart is reviewed including, but not limited to, the most recent lab and radiology st udy results, current and previous medication lists, current and previous medical events. Case discus sed at length with the staff on the floor. PHYSICAL EXAMINATION: GENERAL: An 80-year-old female, appeared to be awake, alert. VITAL SIGNS: Afebrile with pulse of 74, respiratory rate of 20-22, blood pressure 148/80. HEENT: Showed pale, dry oral mucoid membrane. Nonicteric sclerae. LUNGS: Few scattered crepitation, decreased air entry at bases. HEART: Positive S1 and S2. ABDOMEN: Soft with mild generalized tenderness. Bowel sounds are present. No mass or organomegaly. No rebound tenderness or guarding. RECTAL: The patient refused. EXTREMITIES: With mild lower extremities edematous changes. No clubbing or cyanosis. The patient is seen with Dr. Marcos for neurology consultation and no reported new neurological defici ts, sensory or motor. IMPRESSION: 1. Poorly controlled diabetes mellitus. 2. Failure to thrive with poor oral intake. 3. Known history of hypertension, cerebrovascular accident, seizure disorder. 4. Periods of confusion, secondary to above with vertigo. 5. Anemia with stool positive for occult blood, indicative of gastrointestinal blood loss, upper jeromy julia lower. SUGGESTION: 1. Agree with your plan. 2. Adjust IV fluid due to the patient's chronic renal insufficiency. 3. Due to the patient's known history of hyperlipidemia with bronchial asthma, will hold any aggress azul gastrointestinal workup until cancer markers are to be obtained. 4. The patient is a candidate for percutaneous endoscopic gastrostomy insertion if her symptoms pers ist. Heena Le MD cc: 14 TT: 06/21/2016 10:27:15 Confirmation # [id number] Dictation # [id number]
--- NOTE | 2016-06-21 13:11 | CP.PCM.PN ---
Subjective - Date & Time of Evaluation Date of Evaluation: 06/21/16 Time of Evaluation: 13:10 - Subjective Subjective: No CP or SOB Poor PO intake Constipation noted reports of heme + stool No fever Objective - Vital Signs/Intake and Output Vital Signs (last 24 hours): Temp Pulse Resp BP Pulse Ox 98.1 F 78 20 143/83 96 06/21/16 08:30 06/21/16 08:30 06/21/16 08:30 06/21/16 09:42 06/21/16 08:30 Intake and Output: 06/21/16 06/21/16 06:59 18:59 Intake Total 740 Balance 740 - Medications Medications: Current Medications Acetaminophen (Tylenol 325mg Tab) 650 mg PO Q6 PRN PRN Reason: Pain, moderate (4-7) Last Admin: 06/17/16 22:14 Dose: 650 mg Albuterol (Ventolin Hfa 90 Mcg/Actuation (8 G)) 1 puff IH QID PRN PRN Reason: WHEEZING OR SOB Last Admin: 06/17/16 18:50 Dose: 1 puff Carvedilol (Coreg) 25 mg PO BID [facility] Last Admin: 06/21/16 09:42 Dose: 25 mg Enalapril Maleate (Vasotec) 5 mg PO DAILY [facility] Last Admin: 06/21/16 09:42 Dose: 5 mg Enoxaparin Sodium (Lovenox) 30 mg SC DAILY [facility] Last Admin: 06/21/16 09:41 Dose: 30 mg Furosemide (Lasix) 40 mg IVP DAILY [facility] Last Admin: 06/21/16 09:41 Dose: 40 mg Glimepiride (Amaryl) 1 mg PO ACB [facility] Last Admin: 06/21/16 12:13 Dose: Not Given Tigecycline 50 mg/ Sodium (Chloride) 100 mls @ 100 mls/hr IVPB Q12H [facility] Last Admin: 06/20/16 17:38 Dose: 100 mls/hr Ciprofloxacin (Cipro 200mg/100ml D5w) 100 mls @ 100 mls/hr IVPB DAILY [facility] Last Admin: 06/21/16 09:40 Dose: 100 mls/hr Insulin Human Regular (Novolin R) 0 unit SC ACHS [facility] PRN Reason: Protocol Last Admin: 06/21/16 12:08 Dose: 3 unit Metformin HCl (Glucophage) 500 mg PO BIDCC [facility] Last Admin: 06/21/16 09:41 Dose: 500 mg Metoclopramide HCl (Reglan) 5 mg PO ACHS [facility] Last Admin: 06/21/16 12:14 Dose: Not Given Multivitamins (Hexavitamin) 1 tab PO DAILY [facility] Last Admin: 06/21/16 09:42 Dose: 1 tab Pantoprazole Sodium (Protonix Ec Tab) 40 mg PO DAILY [facility] Last Admin: 06/21/16 09:41 Dose: 40 mg Rosuvastatin Calcium (Crestor) 10 mg PO HS [facility] Last Admin: 06/20/16 21:29 Dose: 10 mg - Labs Labs: 06/20/16 11:57 06/21/16 06:12 PT 11.0 SECONDS (9.7-12.2) 06/17/16 10:50 INR 1.0 06/17/16 10:50 APTT 29 SECONDS (21-34) 06/17/16 10:50 - Constitutional Appears: Chronically Ill - Head Exam Head Exam: ATRAUMATIC, NORMAL INSPECTION, NORMOCEPHALIC - Eye Exam Eye Exam: EOMI, Normal appearance, PERRL - ENT Exam ENT Exam: Mucous Membranes Moist, Normal Oropharynx - Neck Exam Neck Exam: Full ROM. absent: Tenderness, Thyromegaly - Respiratory Exam Respiratory Exam: Clear to Ausculation Bilateral, NORMAL BREATHING PATTERN. absent: Rales, Rhonchi, Wheezes - Cardiovascular Exam Cardiovascular Exam: REGULAR RHYTHM, +S1, +S2. absent: Gallop, +S4, Murmur - Extremities Exam Extremities Exam: absent: Pedal Edema - Neurological Exam Neurological Exam: Alert, Awake - Psychiatric Exam Psychiatric exam: Normal Affect - Skin Skin Exam: Normal Color, Warm Assessment and Plan - Assessment and Plan (Free Text) Assessment: 80 year old female with vomiting and fatigue - suspcious for gastroenteritis or other infectious process Known normal LV systolic with acute on chronic Diastolic CHF - currently volume depleted, known Hx of moderate Mitral stenosis so administer fluid with caution. Normal stress test 2014 Leukocytosis acute improving DM - insulin sliding scale: sugars still moderate CKD - chronic and stable - non-obstructing stone seen on CT Acute on chronic anemia: Heme on board; no gross bleeding HTN: controlled on Coreg, vasotoec CAD prevention: on ASA and Statin Anemia: heme + stool: for EGD in AM: she is stable to proceed.
--- NOTE | 2016-06-21 13:29 | CP.PCM.PN ---
Subjective - Date & Time of Evaluation Date of Evaluation: 06/21/16 Time of Evaluation: 13:29 - Subjective Subjective: CHIEF COMPLAINTS TODAY : afebrile, c/o severe constipation. Poor appetite. NAUSEOUS, Feeling weak ROS. HEENT : N. Resp : No cough, wheezing ,pleuritic CP ,or hemoptysis Cardio : No anginal CP, PND, orthopnea, palpitation GI : No abd.pain, n/v ,diarrhea or GI bleeding .+ve SEVERE CONSTIPATION. [employer] : No headache, vertigo, focal deficit / Musculoskel : No joint swelling , Derm : No rash Psych : Normal affect. Ext : No swelling ,calf pain PE. Pt. is alert awake in no distress. V.S As noted in the chart Head ,ear nose,throat and eyes : Normal. Neck : Supple with normal carotids. Lungs: Clear air entry. Heart : S1 & S2 normal with S4. No murmur. Abd : Soft MILD TENDERNESS EPIGASTRIC/MID ABDOMEN with normal bowel sounds. Neuro : Moves all ext. with no localized deficit. Ext : No edema with intact pulses.Non tender calves Derm : No rashes or decubitus ulcer. LABS/RADIOLOGY: wbc IMPROVED 11.0 H/H DROPPED TO 8.4/HEMATOCRIT 26.2. cREATININE 1.3/bun 50 GFR 39 LOW. STOOL +VE OCCULT blood ct OF THE ABDOMEN AND PELVIS W/O -CONTRAST NOTED Objective Objective - Vital Signs/Intake and Output Vital Signs (last 24 hours): Temp Pulse Resp BP Pulse Ox 98.1 F 78 20 143/83 96 06/21/16 08:30 06/21/16 08:30 06/21/16 08:30 06/21/16 09:42 06/21/16 08:30 Intake and Output: 06/21/16 06/21/16 06:59 18:59 Intake Total 740 Balance 740 - Medications Medications: Current Medications Acetaminophen (Tylenol 325mg Tab) 650 mg PO Q6 PRN PRN Reason: Pain, moderate (4-7) Last Admin: 06/17/16 22:14 Dose: 650 mg Albuterol (Ventolin Hfa 90 Mcg/Actuation (8 G)) 1 puff IH QID PRN PRN Reason: WHEEZING OR SOB Last Admin: 06/17/16 18:50 Dose: 1 puff Carvedilol (Coreg) 25 mg PO BID [facility] Last Admin: 06/21/16 09:42 Dose: 25 mg Enalapril Maleate (Vasotec) 5 mg PO DAILY [facility] Last Admin: 06/21/16 09:42 Dose: 5 mg Enoxaparin Sodium (Lovenox) 30 mg SC DAILY [facility] Last Admin: 06/21/16 09:41 Dose: 30 mg Furosemide (Lasix) 40 mg IVP DAILY [facility] Last Admin: 06/21/16 09:41 Dose: 40 mg Glimepiride (Amaryl) 1 mg PO ACB [facility] Last Admin: 06/21/16 12:13 Dose: Not Given Tigecycline 50 mg/ Sodium (Chloride) 100 mls @ 100 mls/hr IVPB Q12H [facility] Last Admin: 06/20/16 17:38 Dose: 100 mls/hr Ciprofloxacin (Cipro 200mg/100ml D5w) 100 mls @ 100 mls/hr IVPB DAILY [facility] Last Admin: 06/21/16 09:40 Dose: 100 mls/hr Insulin Human Regular (Novolin R) 0 unit SC [facility] PRN Reason: Protocol Last Admin: 06/21/16 12:08 Dose: 3 unit Metformin HCl (Glucophage) 500 mg PO BIDCC [facility] Last Admin: 06/21/16 09:41 Dose: 500 mg Metoclopramide HCl (Reglan) 5 mg PO ACHS [facility] Last Admin: 06/21/16 12:14 Dose: Not Given Multivitamins (Hexavitamin) 1 tab PO DAILY [facility] Last Admin: 06/21/16 09:42 Dose: 1 tab Pantoprazole Sodium (Protonix Ec Tab) 40 mg PO DAILY [facility] Last Admin: 06/21/16 09:41 Dose: 40 mg Rosuvastatin Calcium (Crestor) 10 mg PO HS [facility] Last Admin: 06/20/16 21:29 Dose: 10 mg - Labs Labs: 06/20/16 11:57 06/21/16 06:12 PT 11.0 SECONDS (9.7-12.2) 06/17/16 10:50 INR 1.0 06/17/16 10:50 APTT 29 SECONDS (21-34) 06/17/16 10:50 Assessment and Plan (1) Leukocytosis Status: Acute (2) Abdominal pain Status: Acute (3) Anemia Status: Acute (4) Constipation Status: Acute (5) Chronic renal insufficiency Status: Acute (6) Diabetes Status: Acute - Assessment and Plan (Free Text) Assessment: IMPRESSION; LEUKOCYTOSIS-IMPROVING Abdominal pain/WITH EMESIS ? GASTROENTERITIS. Anemia r/o GI bleeding versus malignancy. Constipation. Chronic renal insufficiency. Diabetes mellitus. PLAN ; CONTINUE iv tYGACIL 50 MG EVERY 12 HOURLY 06/18 CONTINUE iv CIPRO 200 MG EVERY 12 HOURLY 06/18. GI W/U PT FOR EGD IN AM
--- NOTE | 2016-06-21 19:15 | CARD ---
APPROVED REPORT EKG Measurement Heart [id number] <Conclusion> Normal sinus rhythm Peaked T waves in precordial leads, consider hyperkalemia or ealry ischemia Normal ECG
[2016-06-22 07:24] LABS: BASO % 0.6 % (0.0-2.0); EOS # 0.3 K/uL (0.0-0.7); EOS % 4.3 % (0.0-4.0); HEMATOCRIT 30.3 % (34.0-47.0); LYMPH # 2.4 K/uL (1.0-4.3); LYMPH % 30.1 % (20.0-40.0); MEAN CELL VOLUME 79.4 fL (81.0-99.0); MEAN CORPUSCULAR HGB CONC 31.5 g/dL (33.0-37.0); MEAN PLATELET VOLUME 11.1 fL (7.2-11.7); MONO # 1.2 K/uL (0.0-0.8); MONO % 15.6 % (0.0-10.0); RED CELL DISTRIBUTION WIDTH 17.1 % (11.5-14.5); WHITE BLOOD COUNT 7.9 K/uL (4.8-10.8)
[2016-06-22 07:42] LABS: POTASSIUM 4.5 mmol/L (3.6-5.2)
--- NOTE | 2016-06-22 09:30 | CP.PCM.PN ---
Subjective - Date & Time of Evaluation Date of Evaluation: 06/22/16 Time of Evaluation: 09:27 - Subjective Subjective: Poor PO intake Failure to thrive Noted GI: possible EGD ?PEG No CP or CHF sx's Objective - Vital Signs/Intake and Output Vital Signs (last 24 hours): Temp Pulse Resp BP Pulse Ox 97.7 F 88 20 116/70 95 06/22/16 08:21 06/22/16 08:21 06/22/16 08:21 06/22/16 08:21 06/22/16 08:21 - Medications Medications: Current Medications Acetaminophen (Tylenol 325mg Tab) 650 mg PO Q6 PRN PRN Reason: Pain, moderate (4-7) Last Admin: 06/17/16 22:14 Dose: 650 mg Albuterol (Ventolin Hfa 90 Mcg/Actuation (8 G)) 1 puff IH QID PRN PRN Reason: WHEEZING OR SOB Last Admin: 06/17/16 18:50 Dose: 1 puff Carvedilol (Coreg) 25 mg PO BID [facility] Last Admin: 06/21/16 18:35 Dose: 25 mg Enalapril Maleate (Vasotec) 5 mg PO DAILY [facility] Last Admin: 06/21/16 09:42 Dose: 5 mg Enoxaparin Sodium (Lovenox) 30 mg SC DAILY [facility] Last Admin: 06/21/16 09:41 Dose: 30 mg Furosemide (Lasix) 40 mg IVP DAILY [facility] Last Admin: 06/21/16 09:41 Dose: 40 mg Glimepiride (Amaryl) 1 mg PO ACB [facility] Last Admin: 06/21/16 12:13 Dose: Not Given Tigecycline 50 mg/ Sodium (Chloride) 100 mls @ 100 mls/hr IVPB Q12H [facility] Last Admin: 06/22/16 05:31 Dose: 100 mls/hr Ciprofloxacin (Cipro 200mg/100ml D5w) 100 mls @ 100 mls/hr IVPB DAILY [facility] Last Admin: 06/21/16 09:40 Dose: 100 mls/hr Insulin Human Regular (Novolin R) 0 unit SC ACHS [facility] PRN Reason: Protocol Last Admin: 06/21/16 21:17 Dose: Not Given [facility] Last Admin: 06/21/16 16:52 Dose: 500 mg Metoclopramide HCl (Reglan) 5 mg PO ACHS [facility] Last Admin: 06/21/16 21:20 Dose: 5 mg Multivitamins (Hexavitamin) 1 tab PO DAILY [facility] Last Admin: 06/21/16 09:42 Dose: 1 tab Pantoprazole Sodium (Protonix Ec Tab) 40 mg PO DAILY [facility] Last Admin: 06/21/16 09:41 Dose: 40 mg Rosuvastatin Calcium (Crestor) 10 mg PO HS [facility] Last Admin: 06/21/16 21:20 Dose: 10 mg - Labs Labs: 06/22/16 07:00 06/22/16 07:00 PT 11.0 SECONDS (9.7-12.2) 06/17/16 10:50 INR 1.0 06/17/16 10:50 APTT 29 SECONDS (21-34) 06/17/16 10:50 - Constitutional Appears: Chronically Ill - Head Exam Head Exam: ATRAUMATIC, NORMAL INSPECTION, NORMOCEPHALIC - Eye Exam Eye Exam: EOMI, Normal appearance, PERRL - ENT Exam ENT Exam: Mucous Membranes Moist - Neck Exam Neck Exam: Full ROM. absent: Tenderness, Thyromegaly - Respiratory Exam Respiratory Exam: Clear to Ausculation Bilateral, NORMAL BREATHING PATTERN. absent: Rhonchi, Wheezes - Cardiovascular Exam Cardiovascular Exam: REGULAR RHYTHM, +S1, +S2, Murmur. absent: +S4 - GI/Abdominal Exam GI & Abdominal Exam: Soft. absent: Tenderness, Organomegaly, Rebound - Extremities Exam Extremities Exam: Normal Inspection. absent: Calf Tenderness, Pedal Edema - Neurological Exam Neurological Exam: Alert, Awake - Psychiatric Exam Psychiatric exam: Normal Affect - Skin Skin Exam: Normal Color, Warm Assessment and Plan - Assessment and Plan (Free Text) Assessment: 80 year old female with vomiting and fatigue - suspcious for gastroenteritis or other infectious process Known normal LV systolic with acute on chronic Diastolic CHF - currently volume depleted, known Hx of moderate Mitral stenosis so administer fluid with caution. Normal stress test 2014 Leukocytosis acute improving DM - insulin sliding scale: sugars still moderate CKD - MP - non-obstructing stone seen on CT Acute on chronic anemia: Heme on board; no gross bleeding HTN: controlled on Coreg, vasotoec CAD prevention: on ASA and Statin Anemia: heme + stool: : GI w/u and possible PEG if clinicaly indicated: she is stable to proceed for any GI procedure.
[2016-06-22] MEDS: (Novolin R) Insulin Human Regular 100 units/ml vial SC SCH ×3 (09:36→18:17)
[2016-06-22] MEDS: Enoxaparin 30 mg Syringe SC SCH (09:37)
[2016-06-22] MEDS: Multiple Vitamins Tab PO SCH ×2 (10:03→14:59)
[2016-06-22] MEDS: Pantoprazole 40 mg EC Tab PO SCH ×2 (10:03→14:59)
[2016-06-22] MEDS: Ciprofloxacin 200mg/100ml D5W 100 ML IVPB SCH (11:15)
[2016-06-22] MEDS ORDERED: Lidocaine Hydrochloride 5 ML INJ ONE (11:54)
[2016-06-22] MEDS ORDERED: Propofol 10 mg/ml Inj (20 ML) ONE (11:54)
[2016-06-22] MEDS ORDERED: Lactated Ringer's 500 ML IV SCH (12:00)
--- NOTE | 2016-06-22 12:52 | CP.PCM.PN ---
Subjective - Date & Time of Evaluation Date of Evaluation: 06/21/16 Time of Evaluation: 20:35 - Subjective Subjective: No complaints. Objective - Vital Signs/Intake and Output Vital Signs (last 24 hours): Temp Pulse Resp BP Pulse Ox 97.8 F 85 18 97/61 L 100 06/22/16 12:00 06/22/16 12:15 06/22/16 12:15 06/22/16 12:15 06/22/16 12:15 Intake and Output: 06/22/16 06/22/16 06:59 18:59 Intake Total 100 Balance 100 - Medications Medications: Current Medications Acetaminophen (Tylenol 325mg Tab) 650 mg PO Q6 PRN PRN Reason: Pain, moderate (4-7) Last Admin: 06/17/16 22:14 Dose: 650 mg Albuterol (Ventolin Hfa 90 Mcg/Actuation (8 G)) 1 puff IH QID PRN PRN Reason: WHEEZING OR SOB Last Admin: 06/17/16 18:50 Dose: 1 puff Carvedilol (Coreg) 25 mg PO BID [facility] Last Admin: 06/22/16 10:03 Dose: Not Given Enalapril Maleate (Vasotec) 5 mg PO DAILY [facility] Last Admin: 06/22/16 10:03 Dose: Not Given Enoxaparin Sodium (Lovenox) 30 mg SC DAILY [facility] Last Admin: 06/22/16 09:37 Dose: Not Given Furosemide (Lasix) 40 mg IVP DAILY [facility] Last Admin: 06/21/16 09:41 Dose: 40 mg Glimepiride (Amaryl) 1 mg PO ACB [facility] Last Admin: 06/22/16 09:36 Dose: Not Given Tigecycline 50 mg/ Sodium (Chloride) 100 mls @ 100 mls/hr IVPB Q12H [facility] Last Admin: 06/22/16 05:31 Dose: 100 mls/hr Ciprofloxacin (Cipro 200mg/100ml D5w) 100 mls @ 100 mls/hr IVPB DAILY [facility] Last Admin: 06/22/16 11:15 Dose: 100 mls/hr Lactated Ringer's (Lactated Ringer's 500ml) 500 mls @ 10 mls/hr IV .Q24H [facility] Insulin Human Regular (Novolin R) 0 unit SC ACHS [facility] PRN Reason: Protocol Last Admin: 06/22/16 09:36 Dose: Not Given Megestrol Acetate (Megace) 40 mg PO DAILY [facility] Metformin HCl (Glucophage) 500 mg PO BIDCC [facility] Last Admin: 06/22/16 09:36 Dose: Not Given Metoclopramide HCl (Reglan) 5 mg PO ACHS [facility] Last Admin: 06/22/16 09:36 Dose: Not Given Multivitamins (Hexavitamin) 1 tab PO DAILY [facility] Last Admin: 06/22/16 10:03 Dose: Not Given Pantoprazole Sodium (Protonix Ec Tab) 40 mg PO DAILY [facility] Last Admin: 06/22/16 10:03 Dose: Not Given Rosuvastatin Calcium (Crestor) 10 mg PO HS [facility] Last Admin: 06/21/16 21:20 Dose: 10 mg Sucralfate (Carafate Oral Susp) 1 gm PO ACBHS [facility] - Labs Labs: 06/22/16 07:00 06/22/16 07:00 PT 11.0 SECONDS (9.7-12.2) 06/17/16 10:50 INR 1.0 06/17/16 10:50 APTT 29 SECONDS (21-34) 06/17/16 10:50 - Head Exam Head Exam: ATRAUMATIC - Eye Exam Eye Exam: Normal appearance - ENT Exam ENT Exam: Mucous Membranes Dry - Respiratory Exam Respiratory Exam: NORMAL BREATHING PATTERN - Cardiovascular Exam Cardiovascular Exam: +S1, +S2 - GI/Abdominal Exam GI & Abdominal Exam: Normal Bowel Sounds - Extremities Exam Extremities Exam: Normal Inspection Assessment and Plan (1) Anemia Assessment & Plan: deferred anemia w/u today but agreeable in AM GI evaluation Status: Acute (2) Leukocytosis Assessment & Plan: on antibiotics Status: Acute
--- NOTE | 2016-06-22 12:54 | CP.PCM.PN ---
Subjective - Date & Time of Evaluation Date of Evaluation: 06/22/16 Time of Evaluation: 09:00 - Subjective Subjective: For endoscopy today Objective - Vital Signs/Intake and Output Vital Signs (last 24 hours): Temp Pulse Resp BP Pulse Ox 97.8 F 85 18 97/61 L 100 06/22/16 12:00 06/22/16 12:15 06/22/16 12:15 06/22/16 12:15 06/22/16 12:15 Intake and Output: 06/22/16 06/22/16 06:59 18:59 Intake Total 100 Balance 100 - Medications Medications: Current Medications Acetaminophen (Tylenol 325mg Tab) 650 mg PO Q6 PRN PRN Reason: Pain, moderate (4-7) Last Admin: 06/17/16 22:14 Dose: 650 mg Albuterol (Ventolin Hfa 90 Mcg/Actuation (8 G)) 1 puff IH QID PRN PRN Reason: WHEEZING OR SOB Last Admin: 06/17/16 18:50 Dose: 1 puff Carvedilol (Coreg) 25 mg PO BID [facility] Last Admin: 06/22/16 10:03 Dose: Not Given Enalapril Maleate (Vasotec) 5 mg PO DAILY [facility] Last Admin: 06/22/16 10:03 Dose: Not Given Enoxaparin Sodium (Lovenox) 30 mg SC DAILY [facility] Last Admin: 06/22/16 09:37 Dose: Not Given Furosemide (Lasix) 40 mg IVP DAILY [facility] Last Admin: 06/21/16 09:41 Dose: 40 mg Glimepiride (Amaryl) 1 mg PO ACB [facility] Last Admin: 06/22/16 09:36 Dose: Not Given Tigecycline 50 mg/ Sodium (Chloride) 100 mls @ 100 mls/hr IVPB Q12H [facility] Last Admin: 06/22/16 05:31 Dose: 100 mls/hr Ciprofloxacin (Cipro 200mg/100ml D5w) 100 mls @ 100 mls/hr IVPB DAILY [facility] Last Admin: 06/22/16 11:15 Dose: 100 mls/hr Lactated Ringer's (Lactated Ringer's 500ml) 500 mls @ 10 mls/hr IV .Q24H [facility] Insulin Human Regular (Novolin R) 0 unit SC ACHS [facility] PRN Reason: Protocol Last Admin: 06/22/16 09:36 Dose: Not Given Megestrol Acetate (Megace) 40 mg PO DAILY [facility] Metformin HCl (Glucophage) 500 mg PO BIDCC [facility] Last Admin: 06/22/16 09:36 Dose: Not Given Metoclopramide HCl (Reglan) 5 mg PO ACHS [facility] Last Admin: 06/22/16 09:36 Dose: Not Given Multivitamins (Hexavitamin) 1 tab PO DAILY [facility] Last Admin: 06/22/16 10:03 Dose: Not Given Pantoprazole Sodium (Protonix Ec Tab) 40 mg PO DAILY [facility] Last Admin: 06/22/16 10:03 Dose: Not Given Rosuvastatin Calcium (Crestor) 10 mg PO HS [facility] Last Admin: 06/21/16 21:20 Dose: 10 mg Sucralfate (Carafate Oral Susp) 1 gm PO ACBHS [facility] - Labs Labs: 06/22/16 07:00 06/22/16 07:00 PT 11.0 SECONDS (9.7-12.2) 06/17/16 10:50 INR 1.0 06/17/16 10:50 APTT 29 SECONDS (21-34) 06/17/16 10:50 - Head Exam Head Exam: ATRAUMATIC - Eye Exam Eye Exam: Normal appearance - ENT Exam ENT Exam: Mucous Membranes Dry - Respiratory Exam Respiratory Exam: NORMAL BREATHING PATTERN - Cardiovascular Exam Cardiovascular Exam: +S1, +S2 - GI/Abdominal Exam GI & Abdominal Exam: Normal Bowel Sounds - Extremities Exam Extremities Exam: Normal Inspection Assessment and Plan (1) Anemia Assessment & Plan: normal iron, b12, folate stores FOBT positive, for endoscopy today Status: Acute (2) Leukocytosis Status: Acute
[2016-06-22 13:17] VITALS: RESP 20; TEMP 98
--- NOTE | 2016-06-22 16:04 | CP.PCM.PN ---
Subjective - Date & Time of Evaluation Date of Evaluation: 06/22/16 Time of Evaluation: 16:02 - Subjective Subjective: tolerating diet no discomfort Objective - Vital Signs/Intake and Output Vital Signs (last 24 hours): Temp Pulse Resp BP Pulse Ox 98 F 73 20 127/81 96 06/22/16 13:16 06/22/16 13:16 06/22/16 13:16 06/22/16 14:58 06/22/16 13:16 Intake and Output: 06/22/16 06/22/16 06:59 18:59 Intake Total 200 Balance 200 - Medications Medications: Current Medications Acetaminophen (Tylenol 325mg Tab) 650 mg PO Q6 PRN PRN Reason: Pain, moderate (4-7) Last Admin: 06/17/16 22:14 Dose: 650 mg Albuterol (Ventolin Hfa 90 Mcg/Actuation (8 G)) 1 puff IH QID PRN PRN Reason: WHEEZING OR SOB Last Admin: 06/17/16 18:50 Dose: 1 puff Carvedilol (Coreg) 25 mg PO BID [facility] Last Admin: 06/22/16 10:03 Dose: Not Given Enalapril Maleate (Vasotec) 5 mg PO DAILY [facility] Last Admin: 06/22/16 10:03 Dose: Not Given Enoxaparin Sodium (Lovenox) 30 mg SC DAILY [facility] Last Admin: 06/22/16 09:37 Dose: Not Given Furosemide (Lasix) 40 mg IVP DAILY [facility] Last Admin: 06/22/16 14:58 Dose: 40 mg Glimepiride (Amaryl) 1 mg PO ACB [facility] Last Admin: 06/22/16 09:36 Dose: Not Given Tigecycline 50 mg/ Sodium (Chloride) 100 mls @ 100 mls/hr IVPB Q12H [facility] Last Admin: 06/22/16 05:31 Dose: 100 mls/hr Ciprofloxacin (Cipro 200mg/100ml D5w) 100 mls @ 100 mls/hr IVPB DAILY [facility] Last Admin: 06/22/16 11:15 Dose: 100 mls/hr Lactated Ringer's (Lactated Ringer's 500ml) 500 mls @ 10 mls/hr IV .Q24H [facility] Insulin Human Regular (Novolin R) 0 unit SC ACHS [facility] PRN Reason: Protocol Last Admin: 06/22/16 14:58 Dose: 3 unit Megestrol Acetate (Megace) 40 mg PO DAILY [facility] Last Admin: 06/22/16 14:59 Dose: 40 mg Metformin HCl (Glucophage) 500 mg PO BIDCC [facility] Last Admin: 06/22/16 09:36 Dose: Not Given Metoclopramide HCl (Reglan) 5 mg PO ACHS [facility] Last Admin: 06/22/16 14:58 Dose: 5 mg Multivitamins (Hexavitamin) 1 tab PO DAILY [facility] Last Admin: 06/22/16 14:59 Dose: 1 tab Pantoprazole Sodium (Protonix Ec Tab) 40 mg PO DAILY [facility] Last Admin: 06/22/16 14:59 Dose: 40 mg Rosuvastatin Calcium (Crestor) 10 mg PO HS [facility] Last Admin: 06/21/16 21:20 Dose: 10 mg Sucralfate (Carafate Oral Susp) 1 gm PO ACBHS [facility] - Labs Labs: 06/22/16 07:00 06/22/16 07:00 PT 11.0 SECONDS (9.7-12.2) 06/17/16 10:50 INR 1.0 06/17/16 10:50 APTT 29 SECONDS (21-34) 06/17/16 10:50 - Constitutional Appears: Non-toxic - Head Exam Head Exam: NORMAL INSPECTION - Eye Exam Eye Exam: Normal appearance Pupil Exam: NORMAL ACCOMODATION - ENT Exam ENT Exam: Mucous Membranes Moist - Neck Exam Neck Exam: Full ROM - Respiratory Exam Respiratory Exam: Clear to Ausculation Bilateral - Cardiovascular Exam Cardiovascular Exam: REGULAR RHYTHM - GI/Abdominal Exam GI & Abdominal Exam: Normal Bowel Sounds - Rectal Exam Rectal Exam: NORMAL INSPECTION - Extremities Exam Extremities Exam: Normal Inspection - Back Exam Back Exam: NORMAL INSPECTION - Neurological Exam Neurological Exam: Abnormal Gait, Oriented x3 - Psychiatric Exam Psychiatric exam: Normal Affect - Skin Skin Exam: Intact Assessment and Plan - Assessment and Plan (Free Text) Assessment: dm htn aneamia generalised weekness Plan: disc home with med pt and home care rn f/u in ofice in one weeke
[2016-06-22 17:14] VITALS: PULSE 78; O2SAT 95
--- NOTE | 2016-06-22 17:52 | PCM.HF ---
Heart Failure Core Measure - Heart Failure Ejection Fraction: 40 % or Greater (EF 73%) PAUL Inhibitor Prescribed: Yes Beta-Jose M Prescribed: Carvedilol Angiotensin II Receptor Jose M Prescribed: No Contraindication/Reason for not providing: on paul AnticoagulationTherapy for Atrial Fibrillation/Atrialflutter: No Contraindication/Reason for not providing: no afib Contraindication/Reason for not providing: CKD Hydralazine Nitrate Prescribed: No Contraindication/Reason for not providing: EF >40% Implantable Cardioverter Defibrillator Therapy: No Contraindication/Reason for not providing: EF >40% Cardiac Resynchronization Therapy Prescribed: No Contraindication/Reason for not providing: not indicated - Follow up Will be discharged to: Home Follow Up Date (must be within 7 days from discharge): 06/27/16 Follow Up Time: 09:00
--- NOTE | 2016-06-22 18:00 | CP.PCM.PN ---
Subjective - Date & Time of Evaluation Date of Evaluation: 06/22/16 Time of Evaluation: 11:00 - Subjective Subjective: Awake, alert, no acute distress. Objective - Vital Signs/Intake and Output Vital Signs (last 24 hours): Temp Pulse Resp BP Pulse Ox 98 F 78 20 119/74 95 06/22/16 15:00 06/22/16 15:00 06/22/16 15:00 06/22/16 15:00 06/22/16 15:00 Intake and Output: 06/22/16 06/22/16 06:59 18:59 Intake Total 200 Balance 200 - Medications Medications: Current Medications Acetaminophen (Tylenol 325mg Tab) 650 mg PO Q6 PRN PRN Reason: Pain, moderate (4-7) Last Admin: 06/17/16 22:14 Dose: 650 mg Albuterol (Ventolin Hfa 90 Mcg/Actuation (8 G)) 1 puff IH QID PRN PRN Reason: WHEEZING OR SOB Last Admin: 06/17/16 18:50 Dose: 1 puff Carvedilol (Coreg) 25 mg PO BID [facility] Last Admin: 06/22/16 10:03 Dose: Not Given Enalapril Maleate (Vasotec) 5 mg PO DAILY [facility] Last Admin: 06/22/16 10:03 Dose: Not Given Enoxaparin Sodium (Lovenox) 30 mg SC DAILY [facility] Last Admin: 06/22/16 09:37 Dose: Not Given Furosemide (Lasix) 40 mg IVP DAILY [facility] Last Admin: 06/22/16 14:58 Dose: 40 mg Glimepiride (Amaryl) 1 mg PO ACB [facility] Last Admin: 06/22/16 09:36 Dose: Not Given Tigecycline 50 mg/ Sodium (Chloride) 100 mls @ 100 mls/hr IVPB Q12H [facility] Last Admin: 06/22/16 05:31 Dose: 100 mls/hr Ciprofloxacin (Cipro 200mg/100ml D5w) 100 mls @ 100 mls/hr IVPB DAILY [facility] Last Admin: 06/22/16 11:15 Dose: 100 mls/hr Lactated Ringer's (Lactated Ringer's 500ml) 500 mls @ 10 mls/hr IV .Q24H [facility] Insulin Human Regular (Novolin R) 0 unit SC ACHS [facility] PRN Reason: Protocol Last Admin: 06/22/16 14:58 Dose: 3 unit Megestrol Acetate (Megace) 40 mg PO DAILY [facility] Last Admin: 06/22/16 14:59 Dose: 40 mg Metformin HCl (Glucophage) 500 mg PO BIDCC [facility] Last Admin: 06/22/16 09:36 Dose: Not Given Metoclopramide HCl (Reglan) 5 mg PO ACHS [facility] Last Admin: 06/22/16 14:58 Dose: 5 mg Multivitamins (Hexavitamin) 1 tab PO DAILY [facility] Last Admin: 06/22/16 14:59 Dose: 1 tab Pantoprazole Sodium (Protonix Ec Tab) 40 mg PO DAILY [facility] Last Admin: 06/22/16 14:59 Dose: 40 mg Rosuvastatin Calcium (Crestor) 10 mg PO HS [facility] Last Admin: 06/21/16 21:20 Dose: 10 mg Sucralfate (Carafate Oral Susp) 1 gm PO ACBHS [facility] - Labs Labs: 06/22/16 07:00 06/22/16 07:00 PT 11.0 SECONDS (9.7-12.2) 06/17/16 10:50 INR 1.0 06/17/16 10:50 APTT 29 SECONDS (21-34) 06/17/16 10:50 Assessment and Plan - Assessment and Plan (Free Text) Assessment: Patient is seen and examined. No sob or chest pains, post endoscopy today ,with no active bleeding. Patient refusing rehab, d/w DR Pace, discharge plan for today on po cipro for 5 days. Arranged for home care , home PT for unsteady gait and weakness. Unable to reach family. 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
[2016-06-22 18:20] VITALS: BP 106/64
--- NOTE | 2016-06-22 21:06 | CON ---
DATE: 06/20/2016 REFERRING PHYSICIAN: From Dr. Heena Le to Dr. Clarisa Pace. REASON FOR CONSULTATION: I was called for a GI consultation by the admitting medical team. The benjamin ent is seen and fully examined on 06/20/2016 as requested by the admitting staff. The entire chart i s reviewed, including but not limited to the most recent lab and radiology study results, current and previous medication list, current and the previous medical events as well as allergies to medication s list with all the available current and the previous medical records. HISTORY OF PRESENT ILLNESS: This is an 80-year-old female with multiple past medical history, was ad mitted to the hospital with main complaint of generalized weakness, dizziness with report of mild kimmie st discomfort and shortness of breath with very poor oral intake with a complaint of dyspepsia and re cent complaint of dysphagia as per patient's statement. No reported actual GI bleeding, palpitation, chills or fever recently. PAST MEDICAL HISTORY: Including but not limited to: 1. Hypertension. 2. Questionable history of CVA. 3. Osteoarthritis. 4. Bronchial asthma. 5. Congestive heart failure. 6. Hyperlipidemia. 7. Osteoporosis. 8. Mild renal insufficiency before. 9. History of open reduction and internal fixation of the femur about 3-1/2 years ago. FAMILY HISTORY: Unknown. SOCIAL HISTORY: No reported history of cigarette smoking or alcohol intake. ALLERGIES TO MEDICATION: Unclear. CURRENT MEDICATIONS: Medication lists were reviewed. LABORATORY DATA: After being admitted to the hospital, the patient was found to have low hemoglobin of 9.7 with hematocrit with increased blood glucose level to 192 and increased BUN at 50 with e levated creatinine to 1.3 initially, indicative of dehydration with mild renal insufficiency. PHYSICAL EXAMINATION: GENERAL: An 80-year-old female, appears to be somewhat anxious, restless. VITAL SIGNS: Afebrile with a pulse of 104, respiratory rate 20-22 with blood pressure 152/66. HEENT: Showed pale, dry oral mucoid membrane. Nonicteric sclerae. LYMPH NODES: No lymphadenitis or lymphadenopathy. LUNGS: Scattered crepitation, decreased air entry bilaterally. HEART: Positive S1 and S2 with increased rate. ABDOMEN: Soft with mild generalized tenderness and slight distention. No mass or organomegaly. No rebound tenderness or guarding. RECTAL: The patient refused. EXTREMITIES: With evidence of osteoarthritis and mild lower extremities . No clubbing or cyano sis. NEUROLOGIC: No reported new neurological deficit, sensory or motor. IMPRESSION: 1. Dyspepsia with dysphagia. 2. Rule out esophageal stricture versus lower esophageal mass lesion. 3. Reexacerbation of peptic ulcer disease. 4. Poor oral intake that could be secondary to versus severe esophageal spasm. 5. Anemia, to rule out gastrointestinal bleeding, upper versus lower, versus anemia secondary to chr onic disease. 6. Hyperglycemia that could be secondary to a new diagnosis of diabetes mellitus. 7. Renal insufficiency. SUGGESTION: 1. Agree with your plan. 2. Protonix IV. 3. Reglan IV. 4. Adjust oral intake with no citrus. 5. Antireflux measures. 6. Sectional abdominal and pelvic as well as chest CAT scan. 7. Peripheral hyperalimentation. 8. Cancer markers including CEA and CA 19-9 with CA-125. 9. Guaiac all the stool daily x 3. 10. Endoscopic evaluation of the upper GI tract when the patient is more stable clinically. 11. Correct underlying electrolyte imbalance, and possible workup for confirming the diagnosis of di abetes should be kept in mind. 12. Ativan 0.5 mg 1 tablet once to twice a day maximum p.r.n. Case was discussed at length with the family at the bedside. We will follow up closely with you. Thank you for letting me participate in your patient's case management and the patient is to be sched uled for upper endoscopy when his symptoms are subsiding. Thank you for letting me participate in your patient's case management. Further recommendation to jeri zamora. Heena Le MD cc: 14 TT: 06/22/2016 21:05:35 Confirmation # [id number] Dictation # [id number] ln
[2016-06-22] MEDS ORDERED: Sucralfate 1 gm/10 ml Oral Susp UD PO SCH (22:00)
--- NOTE | 2016-06-22 22:32 | CP.PCM.PN ---
Subjective - Date & Time of Evaluation Date of Evaluation: 06/22/16 Time of Evaluation: 17:00 - Subjective Subjective: Patient CBC Diff is showing no leukocytosis, WBCs are 7 only. She is seen by Hematology for Anemia and by GI for GI Bleed. She will have a colonoscopy and endoscopy once she is more stable. She is discharged home and will be seen as an Out Patient. Objective - Vital Signs/Intake and Output Vital Signs (last 24 hours): Temp Pulse Resp BP Pulse Ox 98 F 78 20 106/64 95 06/22/16 15:00 06/22/16 15:00 06/22/16 15:00 06/22/16 18:17 06/22/16 15:00 Intake and Output: 06/22/16 06/23/16 18:59 06:59 Intake Total 200 Balance 200 - Labs Labs: 06/22/16 07:00 06/22/16 07:00 PT 11.0 SECONDS (9.7-12.2) 06/17/16 10:50 INR 1.0 06/17/16 10:50 APTT 29 SECONDS (21-34) 06/17/16 10:50 Assessment and Plan (1) Acute exacerbation of congestive heart failure Status: Acute (2) Diabetes Status: Acute (3) Dyslipidemia Status: Acute (4) Dyspnea Status: Acute (5) HTN (hypertension) Status: Acute (6) CVA (cerebral vascular accident) Status: Acute (7) Seizures Status: Acute (8) Fine tremor Status: Chronic (9) Confused but orients easily Status: Acute (10) Vertigo Status: Acute
--- NOTE | 2016-06-29 22:10 | DS ---
She came into the Emergency Room and was having dizziness progressive for the last week and she was w eak and pale and cachectic, has no appetite. On admission, her blood pressure was 127/70. Her tempe rature was normal. Her pulse was normal. She has white count a little high at 20.6 and her hemoglob in 8.8, hematocrit 27. She has also diabetes. Her blood sugar was 241. She has dehydration. BUN a nd creatinine 48 and 1.2. She was admitted and started on IV fluids and monitored her heart and she was seen by Dr. for consultation; for cardiology consultation because of her heart failure and her weakness. She has also for the dizziness Dr. Bassem Blake saw her for the dizziness and asking fo r MRI and it was done and it was normal for the brain. There were no significant issues with f or the recommendation because her MRI was fine. The patient was started on physical therapy. She wa s also seen by the neurology, Dr. Gabriel Marcos, and she has some abdominal discomfort, but the CAT scan of the abdomen showed normal and does have any problems, except a mm nonobstructive calculus. She was not having any problems with that, small to moderate bilateral pleural effusion and moderate cardiomegaly. The blood pressure is fluctuating. She did have congestive heart failure and the ple ural effusion. She was taking nebulizer treatment, Coreg, Dulcolax for constipation, Enalapril for the blood pressure, Cipro started for her urinary tract infection. She was given also some flui ds for dehydration at the beginning. She has insulin coverage for the sugar and the Metformin. She was put on vitamins for her anemia and pantoprazole. The patient was stable and the patient was impr oving. She was able to have a little bit more food to eat. She refused sometimes some of her medica tions or blood work. She was seen by Dr. Le for the constipation. She was not in any distress. So, she was awake, alert, oriented in no acute distress. . She did have an endoscopy for the s tomach and it was not really too much, except some gastritis. She has been advised to go to [facility], but she refused, so she will be going with homemaker to continue all her medications. FINAL DIAGNOSES: Loss of appetite, dizziness, anemia and chronic constipation and gastritis, hyperte nsion and diabetes as well. Clarisa Pace MD cc: [phone] TT: 06/29/2016 22:10:16 mn
--- NOTE | 2016-07-05 10:39 | EEG ---
DATE: 06/20/2016 The record was obtained for a history of rule out encephalopathy, rule out seizures. The patient has vertigo, rule out CVA. The patient is on medicine for sepsis. The record was obtained while the elzbieta clark was awake, drowsy, and asleep. The patient was reported to have chest pain, dyspnea, anemia, e levated BUN and creatinine and vertigo and tremors. The record was symmetrically equal on both sides with velocity of 8 cycles per second. Waves are fairly formed, fairly organized with posterior dist ribution, moderate in amplitude, reactive to eye opening by attenuation. There are no abnormal disch arges. No spike, no polyspike, no sharp wave, no focal slowing, no paroxysmal discharge. The record did not show any changes with photic stimulation. Hyperventilation was omitted. There were periods of drowsiness during which attenuation and slowing of the record were seen and theta waves were seen . There were periods of sleeping during which delta waves were seen. There are eye movement artifac ts, electrode artifact, and muscle movement artifacts. In sum, this is a normal awake, drowsy and asleep EEG. Clinical correlation is recommended. Gabriel Marcos MD cc: [phone] TT: 07/02/2016 06:49:46 Confirmation # [id number] Dictation # [id number] tn
== END 2016-06-22 20:20 | disposition home or self-care (01) | DRG 291 ==
LOC: C.ER 09:58 → C.9E 13:02 → C.5T 14:37
PROVIDERS: ADMIT Internal Medicine; ATTEND Internal Medicine
PROC: 0DB68ZX Excision of Stomach, Via Natural or Artificial Opening Endoscopic, Diagnostic (ICD-10-PCS; principal; 2016-06-22 11:49)
DX: I13.0 Hypertensive heart and chronic kidney disease with heart failure and stage 1 through stage 4 chronic kidney disease, or unspecified chronic kidney disease (principal); I50.33 Acute on chronic diastolic (congestive) heart failure; E11.22 Type 2 diabetes mellitus with diabetic chronic kidney disease; E86.9 Volume depletion, unspecified; E11.65 Type 2 diabetes mellitus with hyperglycemia; N18.9 Chronic kidney disease, unspecified; M81.0 Age-related osteoporosis without current pathological fracture; E78.5 Hyperlipidemia, unspecified; J45.909 Unspecified asthma, uncomplicated; M17.0 Bilateral primary osteoarthritis of knee; E78.00 Pure hypercholesterolemia, unspecified; K59.00 Constipation, unspecified; D64.9 Anemia, unspecified; R56.9 Unspecified convulsions; Z86.73 Personal history of transient ischemic attack (TIA), and cerebral infarction without residual deficits

== ENCOUNTER 2016-06-23 09:53 | Inpatient (IN) | payer MEDICARE, MEDICAID ==
--- NOTE | 2016-06-23 21:30 | RAD ---
Chest x-ray single frontal view History: Shortness of breath. Comparison: None available. Findings: Biapical pleural thickening with upper lobe granulomatous changes. Mild venous congestion. Bilateral hilar prominence. Patchy bibasilar airspace opacities with small bilateral pleural effusions. Tortuous aorta. Heart size within normal limits. Degenerative changes in the spine and shoulders. Impression: Patchy bibasilar airspace opacities with small bilateral pleural effusions.
[2016-06-23 21:52] LABS: ALB/GLOB RATIO 1.2 (1.0-2.1); BILIRUBIN,TOTAL 0.5 mg/dL (0.2-1.3); CALCIUM 8.2 mg/dl (8.6-10.4); POTASSIUM 4.5 mmol/L (3.6-5.2); TOTAL PROTEIN 7.3 g/dL (6.3-8.3)
[2016-06-23 22:12] LABS: BASO # 0.1 K/uL (0.0-0.2); BASO % 1.2 % (0.0-2.0); EOS # 0.2 K/uL (0.0-0.7); HEMATOCRIT 31.2 % (34.0-47.0); LYMPH # 3.4 K/uL (1.0-4.3); LYMPH % 36.2 % (20.0-40.0); MEAN CELL VOLUME 78.8 fL (81.0-99.0); MEAN CORPUSCULAR HEMOGLOBIN 25.3 pg (27.0-31.0); MEAN CORPUSCULAR HGB CONC 32.1 g/dL (33.0-37.0); MEAN PLATELET VOLUME 10.7 fL (7.2-11.7); MONO # 1.3 K/uL (0.0-0.8); MONO % 14.4 % (0.0-10.0); RED CELL DISTRIBUTION WIDTH 17.1 % (11.5-14.5); WHITE BLOOD COUNT 9.3 K/uL (4.8-10.8)
[2016-06-23] MEDS ORDERED: (Lantus) Insulin Glargine, Recombinant SC ONE ×2 (22:30→22:47)
[2016-06-23] MEDS ORDERED: (Novolog) Insulin Aspart, Recombinant 100 u/ml 10 ml vial ONE (22:48)
[2016-06-23] MEDS: (Novolog) Insulin Aspart, Recombinant 100 u/ml 10 ml vial SC SCH (22:49)
[2016-06-24 06:23] LABS: URINE COLOR YELLOW (YELLOW); URINE GLUCOSE (UA) Normal (Normal)
[2016-06-24 06:24] LABS: RBC URINE 1 /hpf (0-3); URINE BACTERIA RARE (<OCC); URINE BILIRUBIN NEGATIVE (NEGATIVE); URINE BLOOD NEGATIVE (NEGATIVE); URINE KETONE NEGATIVE (NEGATIVE); URINE LEUKOCYTE ESTERASE 2+ Leu/uL (Negative); URINE PROTEIN NEGATIVE (NEGATIVE); URINE UROBILINOGEN Normal mg/dL (0.2-1.0); WBC URINE 37 /hpf (0-5)
[2016-06-24] MEDS: (Novolog) Insulin Aspart, Recombinant 100 u/ml 10 ml vial SC SCH ×4 (08:04→22:49)
[2016-06-24] MEDS: Multiple Vitamins Tab PO SCH (09:37)
[2016-06-24] MEDS: Loperamide Hydrochloride 1 mg/5 ml Cup PO SCH ×3 (09:37→17:39)
[2016-06-24] MEDS: GlipiZIDE 10 mg SR Tab PO SCH ×2 (09:37→17:39)
[2016-06-24] MEDS: Pantoprazole 40 mg EC Tab PO SCH (09:37)
[2016-06-24] MEDS ORDERED: QUINAPRIL HCL 10 MG PO SCH (10:00)
[2016-06-24] MEDS ORDERED: GLIPIZIDE 10 MG PO SCH (10:00)
[2016-06-24] MEDS ORDERED: MULTIVITAMIN PO SCH (10:00)
[2016-06-24] MEDS ORDERED: ASPIRIN 81 MG PO SCH (10:00)
--- NOTE | 2016-06-24 12:18 | CP.PCM.PN ---
Subjective - Date & Time of Evaluation Date of Evaluation: 06/24/16 Time of Evaluation: 12:15 - Subjective Subjective: no apetite very weeke bs hi Objective - Vital Signs/Intake and Output Vital Signs (last 24 hours): Temp Pulse Resp BP Pulse Ox 97.8 F 73 20 115/53 L 99 06/24/16 07:00 06/24/16 07:00 06/24/16 07:00 06/24/16 09:38 06/24/16 07:00 Intake and Output: 06/24/16 06/24/16 06:59 18:59 Intake Total 720 Balance 720 - Medications Medications: Current Medications Aspirin (Ecotrin) 81 mg PO DAILY [facility] Last Admin: 06/24/16 09:38 Dose: 81 mg Carvedilol (Coreg) 25 mg PO BID [facility] Last Admin: 06/24/16 09:38 Dose: 25 mg Enalapril Maleate (Vasotec) 5 mg PO DAILY [facility] Last Admin: 06/24/16 09:37 Dose: 5 mg Glipizide (Glucotrol Xl) 10 mg PO BID [facility] Last Admin: 06/24/16 09:37 Dose: 10 mg Heparin Sodium (Porcine) (Heparin) 5,000 units SC Q12 [facility] Last Admin: 06/24/16 09:37 Dose: 5,000 units Moxifloxacin HCl (Avelox Iv 400mg/250ml Ns) 400 mg in 250 mls @ 167 mls/hr IVPB Q24H [facility] Insulin Aspart (Novolog) 0 unit SC ACHS [facility] PRN Reason: Protocol Last Admin: 06/24/16 11:57 Dose: 8 unit Insulin Detemir (Levemir) 8 unit SC DAILY [facility] Loperamide HCl (Imodium) 1 mg PO TID [facility] Last Admin: 06/24/16 09:37 Dose: 1 mg Megestrol Acetate (Megace) 400 mg PO DAILY [facility] Metformin HCl (Glucophage) 500 mg PO BID [facility] Last Admin: 06/24/16 10:00 Dose: 500 mg Multivitamins (Hexavitamin) 1 tab PO DAILY [facility] Last Admin: 06/24/16 09:37 Dose: 1 tab Pantoprazole Sodium (Protonix Ec Tab) 40 mg PO DAILY [facility] Last Admin: 06/24/16 09:37 Dose: 40 mg Sitagliptin Phosphate (Januvia) 100 mg PO DAILY [facility] Last Admin: 06/24/16 09:37 Dose: 100 mg - Labs Labs: PT 10.8 SECONDS (9.7-12.2) 06/23/16 10:50 INR 1.0 06/23/16 10:50 - Constitutional Appears: Non-toxic - Head Exam Head Exam: NORMAL INSPECTION - Eye Exam Eye Exam: Normal appearance Pupil Exam: NORMAL ACCOMODATION - ENT Exam ENT Exam: Mucous Membranes Moist - Neck Exam Neck Exam: Full ROM - Respiratory Exam Respiratory Exam: Clear to Ausculation Bilateral - Cardiovascular Exam Cardiovascular Exam: REGULAR RHYTHM - GI/Abdominal Exam GI & Abdominal Exam: Soft - Rectal Exam Rectal Exam: NORMAL INSPECTION - Exam External exam: NORMAL EXTERNAL EXAM - Extremities Exam Extremities Exam: Normal Inspection - Back Exam Back Exam: NORMAL INSPECTION - Neurological Exam Neurological Exam: Awake, Oriented x3 - Psychiatric Exam Psychiatric exam: Normal Affect - Skin Skin Exam: Pallor Assessment and Plan - Assessment and Plan (Free Text) Assessment: praveena apetite weekness uncontroled Plan: as per orders
[2016-06-24] MEDS: Moxifloxacin IV 400mg/250ml NS 400 MG/250 ML BAG IVPB SCH (12:34)
[2016-06-24] MEDS: Insulin Detemir 100 units/ml Vial (Levemir) SC SCH (12:40)
[2016-06-24] MEDS: Megestrol Acetate 40 mg/ml Cup PO SCH (12:52)
[2016-06-25] MEDS: GlipiZIDE 10 mg SR Tab PO SCH (09:11)
[2016-06-25] MEDS: Megestrol Acetate 40 mg/ml Cup PO SCH (09:11)
[2016-06-25] MEDS: Multiple Vitamins Tab PO SCH (09:11)
[2016-06-25] MEDS: Pantoprazole 40 mg EC Tab PO SCH (09:12)
[2016-06-25] MEDS: Loperamide Hydrochloride 1 mg/5 ml Cup PO SCH ×2 (09:12→14:03)
[2016-06-25] MEDS: (Novolog) Insulin Aspart, Recombinant 100 u/ml 10 ml vial SC SCH ×2 (09:16→12:09)
[2016-06-25] MEDS: Insulin Detemir 100 units/ml Vial (Levemir) SC SCH (09:17)
--- NOTE | 2016-06-25 11:27 | CP.PCM.PN ---
Subjective - Date & Time of Evaluation Date of Evaluation: 06/25/16 Time of Evaluation: 11:24 - Subjective Subjective: no apetite weeke refused blood test a Objective - Vital Signs/Intake and Output Vital Signs (last 24 hours): Temp Pulse Resp BP Pulse Ox 98 F 77 18 99/53 L 96 06/25/16 07:10 06/25/16 07:10 06/25/16 07:10 06/25/16 09:19 06/25/16 07:10 Intake and Output: 06/25/16 06/25/16 06:59 18:59 Intake Total 240 Balance 240 - Medications Medications: Current Medications Acetaminophen (Tylenol 325mg Tab) 650 mg PO Q6 PRN PRN Reason: Pain, moderate (4-7) Aspirin (Ecotrin) 81 mg PO DAILY [facility] Last Admin: 06/25/16 09:12 Dose: 81 mg Enalapril Maleate (Vasotec) 5 mg PO DAILY [facility] Last Admin: 06/25/16 09:17 Dose: Not Given Glipizide (Glucotrol Xl) 10 mg PO BID [facility] Last Admin: 06/25/16 09:11 Dose: 10 mg Heparin Sodium (Porcine) (Heparin) 5,000 units SC Q12 [facility] Last Admin: 06/25/16 09:12 Dose: 5,000 units Moxifloxacin HCl (Avelox Iv 400mg/250ml Ns) 400 mg in 250 mls @ 167 mls/hr IVPB Q24H [facility] Last Admin: 06/24/16 12:34 Dose: 167 mls/hr Insulin Aspart (Novolog) 0 unit SC ACHS [facility] PRN Reason: Protocol Last Admin: 06/25/16 09:16 Dose: Not Given Insulin Detemir (Levemir) 8 unit SC DAILY [facility] Last Admin: 06/25/16 09:17 Dose: Not Given Loperamide HCl (Imodium) 1 mg PO TID [facility] Last Admin: 06/25/16 09:12 Dose: 1 mg Megestrol Acetate (Megace) 400 mg PO DAILY [facility] Last Admin: 06/25/16 09:11 Dose: 400 mg Metformin HCl (Glucophage) 500 mg PO BID [facility] Last Admin: 06/25/16 09:12 Dose: 500 mg Multivitamins (Hexavitamin) 1 tab PO DAILY [facility] Last Admin: 06/25/16 09:11 Dose: 1 tab Pantoprazole Sodium (Protonix Ec Tab) 40 mg PO DAILY [facility] Last Admin: 06/25/16 09:12 Dose: 40 mg Sitagliptin Phosphate (Januvia) 100 mg PO DAILY [facility] Last Admin: 06/25/16 09:12 Dose: 100 mg - Labs Labs: PT 10.8 SECONDS (9.7-12.2) 06/23/16 10:50 INR 1.0 06/23/16 10:50 - Constitutional Appears: Non-toxic - Head Exam Head Exam: ATRAUMATIC - Eye Exam Eye Exam: Normal appearance Pupil Exam: NORMAL ACCOMODATION - ENT Exam ENT Exam: Mucous Membranes Moist - Neck Exam Neck Exam: Full ROM - Respiratory Exam Respiratory Exam: Decreased Breath Sounds - Cardiovascular Exam Cardiovascular Exam: REGULAR RHYTHM - GI/Abdominal Exam GI & Abdominal Exam: Normal Bowel Sounds - Rectal Exam Rectal Exam: NORMAL INSPECTION - Extremities Exam Extremities Exam: Tenderness - Back Exam Back Exam: CVA tenderness (L) - Neurological Exam Neurological Exam: Awake, Oriented x3 - Psychiatric Exam Psychiatric exam: Normal Affect - Skin Skin Exam: Pallor Assessment and Plan - Assessment and Plan (Free Text) Assessment: praveena apetite generalised weekness dm uti aneamia Plan: disc tosar cont as per orders
[2016-06-25] MEDS: Moxifloxacin IV 400mg/250ml NS 400 MG/250 ML BAG IVPB SCH (12:07)
--- NOTE | 2016-06-25 12:43 | CP.PCM.PN ---
Subjective - Date & Time of Evaluation Date of Evaluation: 06/25/16 Time of Evaluation: 12:42 - Subjective Subjective: 80 Y/O FEMALE SEEN AND EXAMINED TODAY BY DR SKINNER, PT DISCHARGE TO [facility] PER HER, MED REC DONE, FALL PRECAUTIONS, RESP EASY AND UNLABORED. NAD. Objective - Vital Signs/Intake and Output Vital Signs (last 24 hours): Temp Pulse Resp BP Pulse Ox 98 F 77 18 99/53 L 96 06/25/16 07:10 06/25/16 07:10 06/25/16 07:10 06/25/16 09:19 06/25/16 07:10 Intake and Output: 06/25/16 06/25/16 06:59 18:59 Intake Total 240 Balance 240 - Medications Medications: Current Medications Acetaminophen (Tylenol 325mg Tab) 650 mg PO Q6 PRN PRN Reason: Pain, moderate (4-7) Aspirin (Ecotrin) 81 mg PO DAILY [facility] Last Admin: 06/25/16 09:12 Dose: 81 mg Enalapril Maleate (Vasotec) 5 mg PO DAILY [facility] Last Admin: 06/25/16 09:17 Dose: Not Given Glipizide (Glucotrol Xl) 10 mg PO BID [facility] Last Admin: 06/25/16 09:11 Dose: 10 mg Heparin Sodium (Porcine) (Heparin) 5,000 units SC Q12 [facility] Last Admin: 06/25/16 09:12 Dose: 5,000 units Moxifloxacin HCl (Avelox Iv 400mg/250ml Ns) 400 mg in 250 mls @ 167 mls/hr IVPB Q24H [facility] Last Admin: 06/25/16 12:07 Dose: 167 mls/hr Insulin Aspart (Novolog) 0 unit SC ACHS [facility] PRN Reason: Protocol Last Admin: 06/25/16 12:09 Dose: Not Given Insulin Detemir (Levemir) 8 unit SC DAILY [facility] Last Admin: 06/25/16 09:17 Dose: Not Given Loperamide HCl (Imodium) 1 mg PO TID [facility] Last Admin: 06/25/16 09:12 Dose: 1 mg Megestrol Acetate (Megace) 400 mg PO DAILY [facility] Last Admin: 06/25/16 09:11 Dose: 400 mg Metformin HCl (Glucophage) 500 mg PO BID [facility] Last Admin: 06/25/16 09:12 Dose: 500 mg Multivitamins (Hexavitamin) 1 tab PO DAILY [facility] Last Admin: 06/25/16 09:11 Dose: 1 tab Pantoprazole Sodium (Protonix Ec Tab) 40 mg PO DAILY [facility] Last Admin: 06/25/16 09:12 Dose: 40 mg Sitagliptin Phosphate (Januvia) 100 mg PO DAILY [facility] Last Admin: 06/25/16 09:12 Dose: 100 mg - Labs Labs: PT 10.8 SECONDS (9.7-12.2) 06/23/16 10:50 INR 1.0 06/23/16 10:50
[2016-06-25 14:34] VITALS: BP 120/69; PULSE 84; RESP 20; TEMP 98.2; O2SAT 98
--- NOTE | 2016-06-25 19:16 | PCM.HF ---
Heart Failure Core Measure - Heart Failure Ejection Fraction: 40 % or Greater (EF 73%) PAUL Inhibitor Prescribed: Yes Beta-Jose M Prescribed: Carvedilol Angiotensin II Receptor Jose M Prescribed: No Contraindication/Reason for not providing: ON PAUL AnticoagulationTherapy for Atrial Fibrillation/Atrialflutter: No Contraindication/Reason for not providing: NO AFIB Aldosterone Antagonist Prescribed: No Contraindication/Reason for not providing: CKD Hydralazine Nitrate Prescribed: No Contraindication/Reason for not providing: LVEF >40% Implantable Cardioverter Defibrillator Therapy: Yes Contraindication/Reason for not providing: LVEF >40% Cardiac Resynchronization Therapy Prescribed: No Contraindication/Reason for not providing: LVEF >40% - Follow up Will be discharged to: Group Home Facility Follow Up Date (must be within 7 days from discharge): 06/28/16 Follow Up Time: 09:00
--- NOTE | 2016-06-29 13:57 | HP ---
The patient was very weak, unable to walk at home. She was unable to eat. She was very cachectic, s o she came back to the hospital to be managed, also referral to rehab facility. PAST MEDICAL HISTORY: She has history of diabetes mellitus, insulin dependent and she also takes ora l medications. She has a history of fractured femur in the past which was repair. She has generaliz ed weakness. She has anemia and she was getting medications for this and she is losing weight and sh e fell. PHYSICAL EXAMINATION: VITAL SIGNS: Okay. NECK: Supple. LUNGS: Clear. HEART: Okay, S1, S2. Has a history of heart failure, but she is okay at this time. ABDOMEN: Soft. EXTREMITIES: Lower limbs with no edema. She was not tender and there was no calf tenderness. ____: Normal. GENITALIA: Normal. LABORATORY DATA: The patient also had lab work done. Her hemoglobin was 10 and her sugar, when she came in, she was really high. It was 365. ASSESSMENT: At this time, she has generalized weakness, loss of appetite, diabetes mellitus, uncontr olled; hypertension, congestive heart failure history. We will admit the patient. Orders, we will g azul medications which she was discharged on before which are insulin coverage and to arrange for [facility] facility to help her with rehabilitation. Clarisa Pace MD cc: [id number] TT: 06/29/2016 13:56:50 sd
--- NOTE | 2016-07-26 08:01 | CARD ---
APPROVED REPORT EKG Measurement Heart [id number] <Conclusion> Sinus rhythm with premature supraventricular complexes Otherwise normal ECG
--- NOTE | 2016-07-26 08:02 | CARD ---
APPROVED REPORT EKG Measurement Heart [id number] <Conclusion> Normal sinus rhythm Possible Anterior infarct, age undetermined Abnormal ECG
== END 2016-06-25 14:49 | DRG 641 ==
LOC: C.ER 09:53 → C.6T 15:40
PROVIDERS: ADMIT Internal Medicine; ATTEND Internal Medicine
DX: R63.0 Anorexia (principal); N17.9 Acute kidney failure, unspecified; R64 Cachexia; E11.22 Type 2 diabetes mellitus with diabetic chronic kidney disease; N39.0 Urinary tract infection, site not specified; R53.1 Weakness; I13.10 Hypertensive heart and chronic kidney disease without heart failure, with stage 1 through stage 4 chronic kidney disease, or unspecified chronic kidney disease; E11.65 Type 2 diabetes mellitus with hyperglycemia; N18.9 Chronic kidney disease, unspecified; D64.9 Anemia, unspecified; Z79.4 Long term (current) use of insulin

== ENCOUNTER 2016-08-08 11:22 | Inpatient (IN) | payer MEDICARE, MEDICAID ==
[2016-08-08 11:22] VITALS: BMI 32.1
--- NOTE | 2016-08-08 11:44 | C.PDOC ---
History Of Present Illness 81 yr old female presents to the ER with complaints of chest pain. Patient states the chest pain has been going on since she was discharged in June, but has been worse today. 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 Patient reports of SOB. Denies fever, nausea, vomiting, weakness or numbness. Time Seen by Provider: 08/08/16 11:36 Chief Complaint (Nursing): Chest Pain History Per: Patient History/Exam Limitations: no limitations Onset/Duration Of Symptoms: Persistent (Since June ) Current Symptoms Are (Timing): Still Present Past Medical History Reviewed: Historical Data, Nursing Documentation, Vital Signs Vital Signs: Last Vital Signs Temp 98 F 08/09/16 15:45 Pulse 84 08/09/16 15:45 Resp 20 08/09/16 15:45 BP 121/62 08/09/16 15:45 Pulse Ox 98 08/09/16 15:45 - Medical History PMH: Anemia, Arthritis (KNEES, HIPS), Asthma, CHF, CVA, Diabetes, HTN, Hypercholesterolemia, Osteoporosis, Chronic Kidney Disease - [facility] Procedures EXCISION OF STOMACH, ENDO, DIAGN (06/17/16) OPEN REDUC-INT FIX FEMUR (01/01/13) Family History: States: No Known Family Hx - Social History Hx Tobacco Use: No Hx Alcohol Use: No Hx Substance Use: No - Immunization History Hx Tetanus Toxoid Vaccination: (unk) Hx Influenza Vaccination: Yes Hx Pneumococcal Vaccination: (unk) Review Of Systems Except As Marked, All Systems Reviewed And Found Negative. Constitutional: Negative for: Fever Cardiovascular: Positive for: Chest Pain Respiratory: Positive for: Shortness of Breath Gastrointestinal: Negative for: Nausea, Vomiting Neurological: Negative for: Weakness, Numbness Physical Exam - Physical Exam Appears: Non-toxic, No Acute Distress Skin: Warm, Dry Head: Atraumatic, Normacephalic Eye(s): bilateral: Normal Inspection, PERRL, EOMI Nose: Normal Throat: Normal, No Erythema, No Exudate, No Drooling Chest: Symmetrical, No Tenderness Cardiovascular: Rhythm Regular, No Murmur Respiratory: Normal Breath Sounds, No Rales, No Rhonchi, No Wheezing Gastrointestinal/Abdominal: Normal Exam, Soft, No Tenderness, No Guarding, No Rebound Extremity: Normal ROM, No Swelling Neurological/Psych: Oriented x3, Normal Speech, Normal Motor ED Course And Treatment - Laboratory Results Result Diagrams: 08/08/16 12:02 08/08/16 12:02 ECG: Interpreted By Me, Viewed By Me ECG Rhythm: Sinus Rhythm ECG Interpretation: Normal Interpretation Of ECG: Normal axis. Normal intervals. No acute ischemia. Rate From EC (BPM ) - Radiology CXR: Viewed By Me, Read By Radiologist CXR Interpretation: Yes: No Acute Disease Medical Decision Making Medical Decision Making: PLAN: * CXR * EKG * CBC * CMP * Troponin Disposition - Disposition Disposition: HOSPITALIZED Disposition Time: 13:39 Condition: STABLE - Clinical Impression Clinical Impression: Chest pain - Scribe Statement The provider has reviewed the documentation as recorded by the Scribe Daisy June Provider Attestation: All medical record entries made by the Scribe were at my direction and personally dictated by me. I have reviewed the chart and agree that the record accurately reflects my personal performance of the history, physical exam, medical decision making, and the department course for this patient. I have also personally directed, reviewed, and agree with the discharge instructions and disposition.
[2016-08-08 12:06] LABS: BASO # 0.2 K/uL (0.0-0.2); BASO % 2.1 % (0.0-2.0); EOS # 0.4 K/uL (0.0-0.7); EOS % 5.5 % (0.0-4.0); HEMOGLOBIN 9.2 g/dL (11.0-16.0); LYMPH # 3.1 K/uL (1.0-4.3); LYMPH % 39.9 % (20.0-40.0); MEAN CORPUSCULAR HEMOGLOBIN 26.3 pg (27.0-31.0); MEAN CORPUSCULAR HGB CONC 31.9 g/dL (33.0-37.0); MEAN PLATELET VOLUME 11.8 fL (7.2-11.7); MONO # 0.9 K/uL (0.0-0.8); MONO % 11.5 % (0.0-10.0); NEUT # 3.1 K/uL (1.8-7.0); RBC 3.49 Mil/uL (3.80-5.20); RED CELL DISTRIBUTION WIDTH 16.4 % (11.5-14.5); WHITE BLOOD COUNT 7.7 K/uL (4.8-10.8)
[2016-08-08 12:12] LABS: MEAN CELL VOLUME 82.4 fL (81.0-99.0)
[2016-08-08 12:17] LABS: ALBUMIN 3.8 g/dL (3.5-5.0)
[2016-08-08 12:19] LABS: GFR AFRICAN-AMERICAN 35; GFR NON-AFRICAN AMERICAN 29
[2016-08-08 12:20] LABS: ALB/GLOB RATIO 1.1 (1.0-2.1); ALT/SGPT 14 U/L (9-52); AST/SGOT 20 U/L (14-36); BLOOD UREA NITROGEN 65 mg/dL (7-17); CALCIUM 9.7 mg/dl (8.6-10.4); LIPASE 189 U/L (23-300)
--- NOTE | 2016-08-08 12:29 | RAD ---
HISTORY: cp COMPARISON: 06/23/2016 FINDINGS: LUNGS: No active pulmonary disease. PLEURA: No significant pleural effusion identified, no pneumothorax apparent. CARDIOVASCULAR: Normal. 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 VISUALIZED UPPER ABDOMEN: Normal. OTHER FINDINGS: None. IMPRESSION: No active disease.
--- NOTE | 2016-08-08 18:24 | CP.PCM.HP ---
History of Present Illness - History of Present Illness History of Present Illness: pt came into er for pressure chest difficulty breathing Present on Admission - Present on Admission Any Indicators Present on Admission: No History of Uncontrolled Diabetes: No Review of Systems - Review of Systems Systems not reviewed;Unavailable: Acuity of Condition, Respiratory Distress - Constitutional Constitutional: Anorexia - EENT Eyes: As Per HPI Nose/Mouth/Throat: As Per HPI - Breasts Breasts: As Per HPI - Cardiovascular Cardiovascular: Chest Pain at Rest, Diaphoresis, Dyspnea, Dyspnea on Exertion - Respiratory Respiratory: Dyspnea - Gastrointestinal Gastrointestinal: Heartburn - Genitourinary Genitourinary: As Per HPI - Reproductive: Female Reproductive:Female: As Per HPI, Post Menopausal - Menstruation Menstruation: As Per HPI, Post Menopausal - Musculoskeletal Musculoskeletal: Arthralgias, Back Pain, Joint Swelling, Neck Pain, Numbness, Radiating Pain into Limb, Stiffness - Integumentary Integumentary: As Per HPI - Neurological Neurological: Numbness - Psychiatric Psychiatric: Depression - Endocrine Endocrine: Polyuria - Hematologic/Lymphatic Additional comments: aneamia Past Patient History - Infectious Disease Hx of Infectious Diseases: None - Past Medical History & Family History Past Medical History?: Yes - Past Social History Smoking Status: Never Smoked - CARDIAC Hx Congestive Heart Failure: Yes Hx Hypercholesterolemia: Yes Hx Hypertension: Yes - PULMONARY Hx Asthma: Yes - NEUROLOGICAL Hx Alzheimer's Disease: No Hx Dementia: No - HEENT Hx HEENT Problems: No - RENAL Hx Chronic Kidney Disease: Yes - ENDOCRINE/METABOLIC Hx Diabetes Mellitus Type 1: No Hx Diabetes Mellitus Type 2: Yes - HEMATOLOGICAL/ONCOLOGICAL Hx Anemia: Yes - INTEGUMENTARY Hx Dermatological Problems: No - MUSCULOSKELETAL/RHEUMATOLOGICAL Hx Arthritis: Yes (KNEES, HIPS) Hx Osteoporosis: Yes - GASTROINTESTINAL Hx Gastrointestinal Disorders: No - GENITOURINARY/GYNECOLOGICAL Hx Genitourinary Disorders: No - PSYCHIATRIC Hx Substance Use: No - SURGICAL HISTORY Hx Surgeries: Yes Hx Orthopedic Surgery: Yes (Left hip replacement and right femur) - ANESTHESIA Hx Anesthesia: Yes Hx Anesthesia Reactions: No Hx Malignant Hyperthermia: No Meds Allergies/Adverse Reactions: Allergies Allergy/AdvReac Type Severity Reaction Status Date / Time Penicillins Allergy Verified 08/08/16 11:40 Physical Exam - Constitutional Appears: Non-toxic, In Acute Distress - Head Exam Head Exam: NORMAL INSPECTION - Eye Exam Eye Exam: Normal appearance Pupil Exam: NORMAL ACCOMODATION - ENT Exam ENT Exam: Mucous Membranes Moist - Neck Exam Neck exam: Positive for: Full Rom - Respiratory Exam Respiratory Exam: Clear to Auscultation Bilateral - Cardiovascular Exam Cardiovascular Exam: REGULAR RHYTHM, +S1, +S2, +S4 Additional comments: tender chest wall - GI/Abdominal Exam GI & Abdominal Exam: Normal Bowel Sounds - Rectal Exam Rectal Exam: NORMAL INSPECTION - Extremities Exam Extremities exam: Positive for: normal inspection - Back Exam Back exam: NORMAL INSPECTION - Neurological Exam Neurological exam: Alert, Oriented x3 - Psychiatric Exam Psychiatric exam: Normal Mood - Skin Skin Exam: Pallor Results - Vital Signs Recent Vital Signs: Last Vital Signs Temp 98.0 F 08/08/16 16:10 Pulse 76 08/08/16 17:34 Resp 22 08/08/16 16:10 BP 150/68 08/08/16 16:10 Pulse Ox 98 08/08/16 16:10 - Labs Result Diagrams: 08/08/16 12:02 08/08/16 12:02 Labs: Laboratory Results - last 24 hr 08/08/16 08/08/16 14:40 16:46 POC Glucose (mg/dL) 255 H NT-Pro-B Natriuret Pep 968 H Assessment & Plan - Assessment and Plan (Free Text) Assessment: ac chest pain chf dm arthritis hypoxeamia Plan: as perorders Decision To Admit - . Bed Request Type: Telemetry
[2016-08-08] MEDS ORDERED: Albuterol HFA 90 mcg/actuation (8 g) IH PRN (18:27)
[2016-08-08] MEDS: Rosuvastatin Calcium 2.5 mg Tab PO SCH (21:10)
[2016-08-08] MEDS: GlipiZIDE 10 mg SR Tab PO SCH (21:10)
[2016-08-08] MEDS: (Novolog) Insulin Aspart, Recombinant 100 u/ml 10 ml vial SC SCH (21:51)
[2016-08-08] MEDS: (Lantus) Insulin Glargine, Recombinant SC SCH (21:52)
[2016-08-09] MEDS: (Novolog) Insulin Aspart, Recombinant 100 u/ml 10 ml vial SC SCH (07:30)
[2016-08-09] MEDS: Megestrol Acetate 40 mg/ml Cup PO SCH (10:34)
[2016-08-09] MEDS: Pantoprazole 40 mg EC Tab PO SCH (10:34)
[2016-08-09] MEDS: Multiple Vitamins Tab PO SCH (10:34)
[2016-08-09] MEDS: GlipiZIDE 10 mg SR Tab PO SCH ×2 (10:35→17:47)
--- NOTE | 2016-08-09 10:40 | CP.PCM.PN ---
Subjective - Date & Time of Evaluation Date of Evaluation: 08/09/16 Time of Evaluation: 10:37 - Subjective Subjective: chest tight sob weeke Objective - Vital Signs/Intake and Output Vital Signs (last 24 hours): Temp Pulse Resp BP Pulse Ox 98.1 F 71 20 152/79 H 98 08/09/16 07:59 08/09/16 07:59 08/09/16 07:59 08/09/16 10:34 08/09/16 07:59 Intake and Output: 08/09/16 08/09/16 06:59 18:59 Intake Total 300 Balance 300 - Medications Medications: Current Medications Acetaminophen (Tylenol 325mg Tab) 650 mg PO Q6 PRN PRN Reason: pain Last Admin: 08/08/16 21:51 Dose: 650 mg Al Hydrox/Mg Hydrox/Simethicone (Maalox Plus 30 Ml) 30 ml PO TID [facility] Albuterol (Ventolin Hfa 90 Mcg/Actuation (8 G)) 1 puff IH RQID PRN PRN Reason: WHEEZING OR SOB Aspirin (Aspirin Chewable) 81 mg PO DAILY [facility] Last Admin: 08/09/16 10:34 Dose: 81 mg Enalapril Maleate (Vasotec) 5 mg PO DAILY [facility] Last Admin: 08/09/16 10:34 Dose: 5 mg Famotidine (Pepcid) 20 mg PO BID [facility] Last Admin: 08/09/16 10:34 Dose: 20 mg Glipizide (Glucotrol Xl) 10 mg PO BID [facility] Last Admin: 08/09/16 10:35 Dose: 10 mg Insulin Glargine (Lantus) 10 unit SC [facility] Last Admin: 08/08/16 21:52 Dose: 10 u Megestrol Acetate (Megace) 400 mg PO DAILY [facility] Last Admin: 08/09/16 10:34 Dose: 400 mg Multivitamins (Hexavitamin) 1 tab PO DAILY [facility] Last Admin: 08/09/16 10:34 Dose: 1 tab Pantoprazole Sodium (Protonix Ec Tab) 40 mg PO DAILY [facility] Last Admin: 08/09/16 10:34 Dose: 40 mg Rosuvastatin Calcium (Crestor) 2.5 mg PO [facility] Last Admin: 08/08/16 21:10 Dose: 2.5 mg - Constitutional Appears: Non-toxic - Head Exam Head Exam: NORMAL INSPECTION - Eye Exam Eye Exam: Normal appearance Pupil Exam: NORMAL ACCOMODATION - ENT Exam ENT Exam: Mucous Membranes Moist - Neck Exam Neck Exam: Full ROM - Respiratory Exam Respiratory Exam: Decreased Breath Sounds, Rales - Cardiovascular Exam Cardiovascular Exam: REGULAR RHYTHM - GI/Abdominal Exam GI & Abdominal Exam: Normal Bowel Sounds - Rectal Exam Rectal Exam: NORMAL INSPECTION - Back Exam Back Exam: NORMAL INSPECTION - Neurological Exam Neurological Exam: Awake, Oriented x3 - Psychiatric Exam Psychiatric exam: Normal Affect - Skin Skin Exam: Pallor Assessment and Plan - Assessment and Plan (Free Text) Assessment: chest pain chf DM ANEAMIA GENERALISED WEEKNESS Plan: PER ORDERS
[2016-08-09] MEDS: Alum-Mag Hydrox-Simethicone Susp (30 mL) PO SCH ×3 (13:25→17:49)
--- NOTE | 2016-08-09 18:41 | CP.PCM.CON ---
History of Present Illness - History of Present Illness History of Present Illness: 81 y/o [place]ian female. h/o COPd, Mild , Mild MS presented with SOB and Chest pain No prior h/o [place] Social Hx. nonsmoker, lives by herself children live far away Review of Systems - Constitutional Constitutional: Weight Loss, Weakness - EENT Ears: absent: As Per HPI, Decreased Hearing, Ear Discharge, Ear Pain, Tinnitus, Abnormal Hearing, Disequilibrium, Dizziness, Other Nose/Mouth/Throat: absent: As Per HPI, Epistaxis, Nasal Congestion, Nasal Discharge, Nasal Obstruction, Nasal Trauma, Nose Pain, Post Nasal Drip, Sinus Pain, Sinus Pressure, Bleeding Gums, Change in Voice, Dental Pain, Dry Mouth, Dysphagia, Halitosis, Hoarsness, Lip Swelling, Mouth Lesions, Mouth Pain, Odynophagia, Sore Throat, Throat Swelling, Tongue Swelling, Facial Pain, Neck Pain, Neck Mass, Other - Cardiovascular Cardiovascular: Chest Pain, Dyspnea on Exertion - Respiratory Respiratory: Dyspnea on Exertion Past Patient History - Infectious Disease Hx of Infectious Diseases: None - Past Medical History & Family History Past Medical History?: Yes - Past Social History Smoking Status: Never Smoked - CARDIAC Hx Cardiac Disorders: Yes Hx Congestive Heart Failure: Yes Hx Hypercholesterolemia: Yes Hx Hypertension: Yes Other/Comment: Mild , Mild MS - PULMONARY Hx Respiratory Disorders: Yes Hx Asthma: Yes - NEUROLOGICAL Hx Neurological Disorder: No Hx Alzheimer's Disease: No Hx Dementia: No - HEENT Hx HEENT Problems: No - RENAL Hx Chronic Kidney Disease: Yes - ENDOCRINE/METABOLIC Hx Endocrine Disorders: Yes Hx Diabetes Mellitus Type 2: Yes - HEMATOLOGICAL/ONCOLOGICAL Hx Blood Disorders: Yes Hx Anemia: Yes - INTEGUMENTARY Hx Dermatological Problems: No - MUSCULOSKELETAL/RHEUMATOLOGICAL Hx Musculoskeletal Disorders: Yes Hx Arthritis: Yes (KNEES, HIPS) Hx Osteoporosis: Yes - GASTROINTESTINAL Hx Gastrointestinal Disorders: No - GENITOURINARY/GYNECOLOGICAL Hx Genitourinary Disorders: No - PSYCHIATRIC Hx Psychophysiologic Disorder: No Hx Substance Use: No - SURGICAL HISTORY Hx Surgeries: Yes Hx Orthopedic Surgery: Yes (Left hip replacement and right femur) - ANESTHESIA Hx Anesthesia: Yes Hx Anesthesia Reactions: No Hx Malignant Hyperthermia: No Meds Allergies/Adverse Reactions: Allergies Allergy/AdvReac Type Severity Reaction Status Date / Time Penicillins Allergy Verified 08/08/16 11:40 - Medications Medications: Current Medications Acetaminophen (Tylenol 325mg Tab) 650 mg PO Q6 PRN PRN Reason: pain Last Admin: 08/08/16 21:51 Dose: 650 mg Al Hydrox/Mg Hydrox/Simethicone (Maalox Plus 30 Ml) 30 ml PO TID [facility] Last Admin: 08/09/16 17:49 Dose: Not Given Albuterol (Ventolin Hfa 90 Mcg/Actuation (8 G)) 1 puff IH RQID PRN PRN Reason: WHEEZING OR SOB Aspirin (Aspirin Chewable) 81 mg PO DAILY [facility] Last Admin: 08/09/16 10:34 Dose: 81 mg Enalapril Maleate (Vasotec) 5 mg PO DAILY [facility] Last Admin: 08/09/16 10:34 Dose: 5 mg Famotidine (Pepcid) 20 mg PO BID [facility] Last Admin: 08/09/16 17:47 Dose: 20 mg Glipizide (Glucotrol Xl) 10 mg PO BID [facility] Last Admin: 08/09/16 17:47 Dose: 10 mg Insulin Glargine (Lantus) 10 unit SC [facility] Last Admin: 08/08/16 21:52 Dose: 10 u Megestrol Acetate (Megace) 400 mg PO DAILY [facility] Last Admin: 08/09/16 10:34 Dose: 400 mg Multivitamins (Hexavitamin) 1 tab PO DAILY [facility] Last Admin: 08/09/16 10:34 Dose: 1 tab Pantoprazole Sodium (Protonix Ec Tab) 40 mg PO DAILY [facility] Last Admin: 08/09/16 10:34 Dose: 40 mg Rosuvastatin Calcium (Crestor) 2.5 mg PO [facility] Last Admin: 08/08/16 21:10 Dose: 2.5 mg Physical Exam - Head Exam Head Exam: NORMAL INSPECTION Additional comments: Pallor - Eye Exam Additional comments: Pale conjunctiva - Neck Exam Neck exam: Positive for: Normal Inspection - Respiratory Exam Respiratory Exam: Decreased Breath Sounds - Cardiovascular Exam Cardiovascular Exam: REGULAR RHYTHM - GI/Abdominal Exam GI & Abdominal Exam: Normal Bowel Sounds - Extremities Exam Extremities exam: Positive for: normal inspection Results - Vital Signs Recent Vital Signs: Last Vital Signs Temp 98 F 08/09/16 15:45 Pulse 84 08/09/16 15:45 Resp 20 08/09/16 15:45 BP 121/62 08/09/16 15:45 Pulse Ox 98 08/09/16 15:45 - Labs Result Diagrams: 08/08/16 12:02 08/08/16 12:02 Labs: Laboratory Results - last 24 hr 08/08/16 08/09/16 08/09/16 21:07 06:13 11:41 POC Glucose (mg/dL) 361 H 127 H 357 H 08/09/16 16:57 POC Glucose (mg/dL) 331 H Assessment & Plan - Assessment and Plan (Free Text) Assessment: Chest pain r/o NE COPD Mild MIld MS Anemia Uncontrolled DM Plan: Cont . Acetaminophen (Tylenol 325mg Tab) 650 mg PO Q6 PRN PRN Reason: pain Last Admin: 08/08/16 21:51 Dose: 650 mg Al Hydrox/Mg Hydrox/Simethicone (Maalox Plus 30 Ml) 30 ml PO TID [facility] Last Admin: 08/09/16 17:49 Dose: Not Given Albuterol (Ventolin Hfa 90 Mcg/Actuation (8 G)) 1 puff IH RQID PRN PRN Reason: WHEEZING OR SOB Aspirin (Aspirin Chewable) 81 mg PO DAILY [facility] Last Admin: 08/09/16 10:34 Dose: 81 mg Enalapril Maleate (Vasotec) 5 mg PO DAILY [facility] Last Admin: 08/09/16 10:34 Dose: 5 mg Famotidine (Pepcid) 20 mg PO BID [facility] Last Admin: 08/09/16 17:47 Dose: 20 mg Glipizide (Glucotrol Xl) 10 mg PO BID [facility] Last Admin: 08/09/16 17:47 Dose: 10 mg Insulin Glargine (Lantus) 10 unit SC [facility] Last Admin: 08/08/16 21:52 Dose: 10 u Megestrol Acetate (Megace) 400 mg PO DAILY [facility] Last Admin: 08/09/16 10:34 Dose: 400 mg Multivitamins (Hexavitamin) 1 tab PO DAILY [facility] Last Admin: 08/09/16 10:34 Dose: 1 tab Pantoprazole Sodium (Protonix Ec Tab) 40 mg PO DAILY [facility] Last Admin: 08/09/16 10:34 Dose: 40 mg Rosuvastatin Calcium (Crestor) 2.5 mg PO HS [facility] Last Admin: 08/08/16 21:10 Dose: 2.5 mg Moniter daily EKGs and Serial enzymes, initial EKG and Troponin are normal Obtain Echo
[2016-08-09] MEDS: Rosuvastatin Calcium 2.5 mg Tab PO SCH (22:07)
[2016-08-09] MEDS: (Lantus) Insulin Glargine, Recombinant SC SCH (22:07)
[2016-08-10] MEDS: GlipiZIDE 10 mg SR Tab PO SCH ×2 (09:51→18:27)
[2016-08-10] MEDS: Pantoprazole 40 mg EC Tab PO SCH (09:51)
[2016-08-10] MEDS: Megestrol Acetate 40 mg/ml Cup PO SCH (09:51)
[2016-08-10] MEDS: Multiple Vitamins Tab PO SCH (09:51)
[2016-08-10] MEDS: Alum-Mag Hydrox-Simethicone Susp (30 mL) PO SCH ×2 (09:51→18:27)
[2016-08-10 12:38] LABS: HEMOGLOBIN 9.8 g/dL (11.0-16.0); MEAN CELL VOLUME 82.9 fL (81.0-99.0); MEAN CORPUSCULAR HEMOGLOBIN 26.3 pg (27.0-31.0); MEAN CORPUSCULAR HGB CONC 31.8 g/dL (33.0-37.0); MEAN PLATELET VOLUME 12.5 fL (7.2-11.7); RBC 3.72 Mil/uL (3.80-5.20); RED CELL DISTRIBUTION WIDTH 16.2 % (11.5-14.5); WHITE BLOOD COUNT 9.7 K/uL (4.8-10.8)
[2016-08-10 12:56] LABS: ALBUMIN 3.8 g/dL (3.5-5.0)
[2016-08-10 12:59] LABS: ALB/GLOB RATIO 1.1 (1.0-2.1); ALT/SGPT 13 U/L (9-52); AST/SGOT 16 U/L (14-36); BLOOD UREA NITROGEN 47 mg/dL (7-17); GFR AFRICAN-AMERICAN 37; GFR NON-AFRICAN AMERICAN 31
[2016-08-10 13:00] LABS: CALCIUM 9.4 mg/dl (8.6-10.4)
[2016-08-10 13:09] LABS: CK-MB 0.98 ng/mL (0.0-3.38)
[2016-08-10 13:10] LABS: B-TYPE NATRIURETIC PEPTIDE 926 pg/mL (0-900)
[2016-08-10 14:24] LABS: SQUAMOUS EPITHIAL < 1 /hpf (0-5); URINE BILIRUBIN NEGATIVE (NEGATIVE); URINE BLOOD NEGATIVE (NEGATIVE); URINE CLARITY Clear (Clear); URINE COLOR Yellow (YELLOW); URINE GLUCOSE (UA) NORMAL (Normal); URINE LEUKOCYTE ESTERASE NEG Leu/uL (Negative); URINE NITRATE NEGATIVE (NEGATIVE); URINE PROTEIN NEGATIVE (NEGATIVE); URINE UROBILINOGEN NORMAL mg/dL (0.2-1.0)
--- NOTE | 2016-08-10 16:36 | CP.PCM.PN ---
Subjective - Date & Time of Evaluation Date of Evaluation: 08/10/16 Time of Evaluation: 16:34 - Subjective Subjective: SOB improved No chest pain Objective - Vital Signs/Intake and Output Vital Signs (last 24 hours): Temp Pulse Resp BP Pulse Ox 98.0 F 86 20 140/70 96 08/10/16 07:52 08/10/16 08:00 08/10/16 07:52 08/10/16 09:51 08/10/16 07:52 - Medications Medications: Current Medications Acetaminophen (Tylenol 325mg Tab) 650 mg PO Q6 PRN PRN Reason: pain Last Admin: 08/08/16 21:51 Dose: 650 mg Al Hydrox/Mg Hydrox/Simethicone (Maalox Plus 30 Ml) 30 ml PO TID [facility] Last Admin: 08/10/16 09:51 Dose: 30 ml Albuterol (Ventolin Hfa 90 Mcg/Actuation (8 G)) 1 puff IH RQID PRN PRN Reason: WHEEZING OR SOB Aspirin (Aspirin Chewable) 81 mg PO DAILY [facility] Last Admin: 08/10/16 09:51 Dose: 81 mg Enalapril Maleate (Vasotec) 5 mg PO DAILY [facility] Last Admin: 08/10/16 09:51 Dose: 5 mg Glipizide (Glucotrol Xl) 10 mg PO BID [facility] Last Admin: 08/10/16 09:51 Dose: 10 mg Heparin Sodium (Porcine) (Heparin) 5,000 units SC Q12 [facility] Last Admin: 08/10/16 12:25 Dose: 5,000 units Insulin Glargine (Lantus) 10 unit SC HS [facility] Last Admin: 08/09/16 22:07 Dose: 10 u Megestrol Acetate (Megace) 400 mg PO DAILY [facility] Last Admin: 08/10/16 09:51 Dose: 400 mg Multivitamins (Hexavitamin) 1 tab PO DAILY [facility] Last Admin: 08/10/16 09:51 Dose: 1 tab Pantoprazole Sodium (Protonix Ec Tab) 40 mg PO DAILY [facility] Last Admin: 08/10/16 09:51 Dose: 40 mg Rosuvastatin Calcium (Crestor) 2.5 mg PO HS [facility] Last Admin: 08/09/16 22:07 Dose: 2.5 mg - Head Exam Head Exam: NORMOCEPHALIC - Eye Exam Eye Exam: Normal appearance - ENT Exam ENT Exam: Normal Oropharynx - Neck Exam Neck Exam: Normal Inspection - Respiratory Exam Respiratory Exam: Rhonchi - Cardiovascular Exam Cardiovascular Exam: REGULAR RHYTHM - GI/Abdominal Exam GI & Abdominal Exam: Normal Bowel Sounds - Extremities Exam Extremities Exam: Normal Inspection Assessment and Plan - Assessment and Plan (Free Text) Assessment: c/p [place] R/O COPD Anemia CKD Plan: Cont. Acetaminophen (Tylenol 325mg Tab) 650 mg PO Q6 PRN PRN Reason: pain Last Admin: 08/08/16 21:51 Dose: 650 mg Al Hydrox/Mg Hydrox/Simethicone (Maalox Plus 30 Ml) 30 ml PO TID [facility] Last Admin: 08/10/16 09:51 Dose: 30 ml Albuterol (Ventolin Hfa 90 Mcg/Actuation (8 G)) 1 puff IH RQID PRN PRN Reason: WHEEZING OR SOB Aspirin (Aspirin Chewable) 81 mg PO DAILY [facility] Last Admin: 08/10/16 09:51 Dose: 81 mg Enalapril Maleate (Vasotec) 5 mg PO DAILY [facility] Last Admin: 08/10/16 09:51 Dose: 5 mg Glipizide (Glucotrol Xl) 10 mg PO BID [facility] Last Admin: 08/10/16 09:51 Dose: 10 mg Heparin Sodium (Porcine) (Heparin) 5,000 units SC Q12 [facility] Last Admin: 08/10/16 12:25 Dose: 5,000 units Insulin Glargine (Lantus) 10 unit SC HS [facility] Last Admin: 08/09/16 22:07 Dose: 10 u Megestrol Acetate (Megace) 400 mg PO DAILY [facility] Last Admin: 08/10/16 09:51 Dose: 400 mg Multivitamins (Hexavitamin) 1 tab PO DAILY [facility] Last Admin: 08/10/16 09:51 Dose: 1 tab Pantoprazole Sodium (Protonix Ec Tab) 40 mg PO DAILY [facility] Last Admin: 08/10/16 09:51 Dose: 40 mg Rosuvastatin Calcium (Crestor) 2.5 mg PO HS [facility] Last Admin: 08/09/16 22:07 Dose: 2.5 mg Awaiting Echo study
--- NOTE | 2016-08-10 16:40 | CP.PCM.PN ---
Subjective - Date & Time of Evaluation Date of Evaluation: 08/10/16 Time of Evaluation: 16:37 - Subjective Subjective: no chest pain today still in bed weeke Objective - Vital Signs/Intake and Output Vital Signs (last 24 hours): Temp Pulse Resp BP Pulse Ox 98.0 F 86 20 140/70 96 08/10/16 07:52 08/10/16 08:00 08/10/16 07:52 08/10/16 09:51 08/10/16 07:52 - Medications Medications: Current Medications Acetaminophen (Tylenol 325mg Tab) 650 mg PO Q6 PRN PRN Reason: pain Last Admin: 08/08/16 21:51 Dose: 650 mg Al Hydrox/Mg Hydrox/Simethicone (Maalox Plus 30 Ml) 30 ml PO TID [facility] Last Admin: 08/10/16 09:51 Dose: 30 ml Albuterol (Ventolin Hfa 90 Mcg/Actuation (8 G)) 1 puff IH RQID PRN PRN Reason: WHEEZING OR SOB Aspirin (Aspirin Chewable) 81 mg PO DAILY [facility] Last Admin: 08/10/16 09:51 Dose: 81 mg Enalapril Maleate (Vasotec) 5 mg PO DAILY [facility] Last Admin: 08/10/16 09:51 Dose: 5 mg Glipizide (Glucotrol Xl) 10 mg PO BID [facility] Last Admin: 08/10/16 09:51 Dose: 10 mg Heparin Sodium (Porcine) (Heparin) 5,000 units SC Q12 [facility] Last Admin: 08/10/16 12:25 Dose: 5,000 units Insulin Glargine (Lantus) 10 unit SC [facility] Last Admin: 08/09/16 22:07 Dose: 10 u Megestrol Acetate (Megace) 400 mg PO DAILY [facility] Last Admin: 08/10/16 09:51 Dose: 400 mg Multivitamins (Hexavitamin) 1 tab PO DAILY [facility] Last Admin: 08/10/16 09:51 Dose: 1 tab Pantoprazole Sodium (Protonix Ec Tab) 40 mg PO DAILY [facility] Last Admin: 08/10/16 09:51 Dose: 40 mg Rosuvastatin Calcium (Crestor) 2.5 mg PO HS [facility] Last Admin: 08/09/16 22:07 Dose: 2.5 mg - Constitutional Appears: Non-toxic - Head Exam Head Exam: NORMAL INSPECTION - Eye Exam Eye Exam: Normal appearance Pupil Exam: NORMAL ACCOMODATION - ENT Exam ENT Exam: Mucous Membranes Moist - Neck Exam Neck Exam: Normal Inspection - Respiratory Exam Respiratory Exam: Clear to Ausculation Bilateral - Cardiovascular Exam Cardiovascular Exam: REGULAR RHYTHM - GI/Abdominal Exam GI & Abdominal Exam: Normal Bowel Sounds - Rectal Exam Rectal Exam: NORMAL INSPECTION - Exam Exam: NORMAL INSPECTION External exam: NORMAL EXTERNAL EXAM - Extremities Exam Extremities Exam: Normal Inspection - Back Exam Back Exam: NORMAL INSPECTION - Neurological Exam Neurological Exam: Alert, Oriented x3 Neuro motor strength exam: Right Upper Extremity: 4 - Psychiatric Exam Psychiatric exam: Normal Mood - Skin Skin Exam: Normal Color, Pallor Assessment and Plan - Assessment and Plan (Free Text) Assessment: s/p chest pain chf aneamia dmuncontroled weekness Plan: pt and as per orders
[2016-08-10] MEDS: Rosuvastatin Calcium 2.5 mg Tab PO SCH (21:47)
[2016-08-10] MEDS ORDERED: (Lantus) Insulin Glargine, Recombinant SC SCH (22:00)
[2016-08-11] MEDS: GlipiZIDE 10 mg SR Tab PO SCH ×2 (10:53→17:41)
[2016-08-11] MEDS: Alum-Mag Hydrox-Simethicone Susp (30 mL) PO SCH ×3 (10:53→17:43)
[2016-08-11] MEDS: Multiple Vitamins Tab PO SCH (10:53)
[2016-08-11] MEDS: Megestrol Acetate 40 mg/ml Cup PO SCH (10:53)
[2016-08-11] MEDS: Pantoprazole 40 mg EC Tab PO SCH (10:53)
[2016-08-11 11:37] LABS: CK-MB 0.86 ng/mL (0.0-3.38)
--- NOTE | 2016-08-11 15:12 | CP.PCM.PN ---
Subjective - Date & Time of Evaluation Date of Evaluation: 08/11/16 Time of Evaluation: 10:00 - Subjective Subjective: No c/p or sob tremulous Objective - Vital Signs/Intake and Output Vital Signs (last 24 hours): Temp Pulse Resp BP Pulse Ox 97.6 F 77 19 130/80 100 08/11/16 08:25 08/11/16 08:25 08/11/16 08:25 08/11/16 10:53 08/11/16 08:25 Intake and Output: 08/11/16 08/11/16 06:59 18:59 Intake Total 370 Balance 370 - Medications Medications: Current Medications Acetaminophen (Tylenol 325mg Tab) 650 mg PO Q6 PRN PRN Reason: pain Last Admin: 08/08/16 21:51 Dose: 650 mg Al Hydrox/Mg Hydrox/Simethicone (Maalox Plus 30 Ml) 30 ml PO TID [facility] Last Admin: 08/11/16 13:45 Dose: 30 ml Albuterol (Ventolin Hfa 90 Mcg/Actuation (8 G)) 1 puff IH RQID PRN PRN Reason: WHEEZING OR SOB Aspirin (Aspirin Chewable) 81 mg PO DAILY [facility] Last Admin: 08/11/16 10:53 Dose: 81 mg Enalapril Maleate (Vasotec) 5 mg PO DAILY [facility] Last Admin: 08/11/16 10:53 Dose: 5 mg Glipizide (Glucotrol Xl) 10 mg PO BID [facility] Last Admin: 08/11/16 10:53 Dose: 10 mg Heparin Sodium (Porcine) (Heparin) 5,000 units SC Q12 [facility] Last Admin: 08/11/16 10:53 Dose: 5,000 units Insulin Glargine (Lantus) 14 unit SC HS [facility] Last Admin: 08/10/16 21:48 Dose: 14 units Megestrol Acetate (Megace) 400 mg PO DAILY [facility] Last Admin: 08/11/16 10:53 Dose: 400 mg Multivitamins (Hexavitamin) 1 tab PO DAILY [facility] Last Admin: 08/11/16 10:53 Dose: 1 tab Pantoprazole Sodium (Protonix Ec Tab) 40 mg PO DAILY [facility] Last Admin: 08/11/16 10:53 Dose: 40 mg Rosuvastatin Calcium (Crestor) 2.5 mg PO HS [facility] Last Admin: 08/10/16 21:47 Dose: 2.5 mg - Constitutional Appears: Non-toxic - Head Exam Head Exam: NORMAL INSPECTION - Eye Exam Eye Exam: Normal appearance - Neck Exam Neck Exam: Normal Inspection - Respiratory Exam Respiratory Exam: NORMAL BREATHING PATTERN - Cardiovascular Exam Cardiovascular Exam: REGULAR RHYTHM - Extremities Exam Extremities Exam: Normal Inspection Assessment and Plan - Assessment and Plan (Free Text) Assessment: c/o [place] R/O MS ? Parkinsonism Plan: Cont. Acetaminophen (Tylenol 325mg Tab) 650 mg PO Q6 PRN PRN Reason: pain Last Admin: 08/08/16 21:51 Dose: 650 mg Al Hydrox/Mg Hydrox/Simethicone (Maalox Plus 30 Ml) 30 ml PO TID [facility] Last Admin: 08/11/16 13:45 Dose: 30 ml Albuterol (Ventolin Hfa 90 Mcg/Actuation (8 G)) 1 puff IH RQID PRN PRN Reason: WHEEZING OR SOB Aspirin (Aspirin Chewable) 81 mg PO DAILY [facility] Last Admin: 08/11/16 10:53 Dose: 81 mg Enalapril Maleate (Vasotec) 5 mg PO DAILY [facility] Last Admin: 08/11/16 10:53 Dose: 5 mg Glipizide (Glucotrol Xl) 10 mg PO BID [facility] Last Admin: 08/11/16 10:53 Dose: 10 mg Heparin Sodium (Porcine) (Heparin) 5,000 units SC Q12 [facility] Last Admin: 08/11/16 10:53 Dose: 5,000 units Insulin Glargine (Lantus) 14 unit SC HS [facility] Last Admin: 08/10/16 21:48 Dose: 14 units Megestrol Acetate (Megace) 400 mg PO DAILY [facility] Last Admin: 08/11/16 10:53 Dose: 400 mg Multivitamins (Hexavitamin) 1 tab PO DAILY [facility] Last Admin: 08/11/16 10:53 Dose: 1 tab Pantoprazole Sodium (Protonix Ec Tab) 40 mg PO DAILY [facility] Last Admin: 08/11/16 10:53 Dose: 40 mg Rosuvastatin Calcium (Crestor) 2.5 mg PO HS [facility] Last Admin: 08/10/16 21:47 Dose: 2.5 mg Echo is pending Consider Anti Parkinsonian meds
--- NOTE | 2016-08-11 17:27 | CP.PCM.PN ---
Subjective - Date & Time of Evaluation Date of Evaluation: 08/11/16 Time of Evaluation: 17:25 - Subjective Subjective: still sob weeke bs hi Objective - Vital Signs/Intake and Output Vital Signs (last 24 hours): Temp Pulse Resp BP Pulse Ox 97.9 F 85 20 121/77 100 08/11/16 15:29 08/11/16 15:29 08/11/16 15:29 08/11/16 15:29 08/11/16 15:29 Intake and Output: 08/11/16 08/11/16 06:59 18:59 Intake Total 370 Balance 370 - Medications Medications: Current Medications Acetaminophen (Tylenol 325mg Tab) 650 mg PO Q6 PRN PRN Reason: pain Last Admin: 08/08/16 21:51 Dose: 650 mg Al Hydrox/Mg Hydrox/Simethicone (Maalox Plus 30 Ml) 30 ml PO TID [facility] Last Admin: 08/11/16 13:45 Dose: 30 ml Albuterol (Ventolin Hfa 90 Mcg/Actuation (8 G)) 1 puff IH RQID PRN PRN Reason: WHEEZING OR SOB Aspirin (Aspirin Chewable) 81 mg PO DAILY [facility] Last Admin: 08/11/16 10:53 Dose: 81 mg Enalapril Maleate (Vasotec) 5 mg PO DAILY [facility] Last Admin: 08/11/16 10:53 Dose: 5 mg Glipizide (Glucotrol Xl) 10 mg PO BID [facility] Last Admin: 08/11/16 10:53 Dose: 10 mg Heparin Sodium (Porcine) (Heparin) 5,000 units SC Q12 [facility] Last Admin: 08/11/16 10:53 Dose: 5,000 units Insulin Aspart (Novolog Mix 70/30 (70/30 Units/Ml)) 20 units SC [facility] Megestrol Acetate (Megace) 400 mg PO DAILY [facility] Last Admin: 08/11/16 10:53 Dose: 400 mg Multivitamins (Hexavitamin) 1 tab PO DAILY [facility] Last Admin: 08/11/16 10:53 Dose: 1 tab Pantoprazole Sodium (Protonix Ec Tab) 40 mg PO DAILY [facility] Last Admin: 08/11/16 10:53 Dose: 40 mg Rosuvastatin Calcium (Crestor) 2.5 mg PO [facility] Last Admin: 08/10/16 21:47 Dose: 2.5 mg Sitagliptin Phosphate (Januvia) 25 mg PO DAILY [facility] - Constitutional Appears: Non-toxic - Head Exam Head Exam: NORMAL INSPECTION - Eye Exam Eye Exam: Normal appearance Pupil Exam: NORMAL ACCOMODATION - ENT Exam ENT Exam: Mucous Membranes Moist - Neck Exam Neck Exam: Full ROM - Respiratory Exam Respiratory Exam: Decreased Breath Sounds, Rales - Cardiovascular Exam Cardiovascular Exam: REGULAR RHYTHM - GI/Abdominal Exam GI & Abdominal Exam: Normal Bowel Sounds - Rectal Exam Rectal Exam: NORMAL INSPECTION - Exam External exam: NORMAL EXTERNAL EXAM - Back Exam Back Exam: NORMAL INSPECTION - Neurological Exam Neurological Exam: Oriented x3 - Psychiatric Exam Psychiatric exam: Normal Affect - Skin Skin Exam: Pallor Assessment and Plan - Assessment and Plan (Free Text) Assessment: chf dmuncontroled htn arthris Plan: as per orders
[2016-08-11] MEDS: Rosuvastatin Calcium 2.5 mg Tab PO SCH (21:37)
[2016-08-11] MEDS: (Novolog Mix 70/30) Insulin Aspart/Insulin Aspar 100 units/ml SC SCH (21:38)
--- NOTE | 2016-08-11 23:52 | CARD ---
APPROVED REPORT EXAM: Two-dimensional and M-mode echocardiogram with Doppler and color Doppler. Other Information Quality : GoodRhythm : NSR INDICATION CVA/TIA Dyspnea Chest Pain Syncope RISK FACTORS Hypertension Diabetes 2D DIMENSIONS LVOT Diameter2.0 (1.8-2.4cm) M-Mode DIMENSIONS RVDd0.98 (2.1-3.2cm)Left Atrium (MM)4.10 (2.5-4.0cm) IVSd1.25 (0.7-1.1cm)Aortic Root3.01 (2.2-3.7cm) LVDd4.06 (4.0-5.6cm)Aortic Cusp Exc.1.29 (1.5-2.0cm) PWd1.17 (0.7-1.1cm)FS (%) 32 % LVDs2.77 (2.0-3.8cm)LVEF (%)60 (>50%) Aortic Valve AoV Peak Zqwdjjye757.3cm/sAoV VTI53.1cmAO Peak GR.34mmHg LVOT Peak Agejtnmu300.5cm/sLVOT VTI18.27cmAO Mean GR.18mmHg FLORESITA (VMAX)1.36dr3ZQB (VTI)1.05cm2 Mitral Valve MV E Mjbfvsem374.3cm/sMV A Dpkbwzen071.7cm/sMV DYN60az E/A ratio0.6MVA (PHT)2.28cm2 TDI E/Lateral E'0.0E/Medial E'0.0 Tricuspid Valve TR Peak Wnsscoay912nc/sTR Peak Gr.[id number] LEFT VENTRICLE The left ventricle is normal size. There is mild concentric left ventricular hypertrophy. Left ventricle systolic function is normal. The Ejection Fraction is 60%. There is normal LV segmental wall motion. Tissue Doppler imaging reveals abnormal left ventricular diastolic dysfunction. RIGHT VENTRICLE The right ventricle is normal size. There is normal right ventricular wall thickness. The right ventricular systolic function is normal. ATRIA The left atrium is moderately dilated. The right atrium size is normal. The interatrial septum is intact with no evidence for an atrial septal defect. AORTIC VALVE The aortic valve is calcified and displays decreased opening. No aortic regurgitation is present. There is moderate valvular aortic stenosis. Calculated aortic valve area is 1.05 cm2 with maximum pressure gradient of 34 mmHg and mean pressure gradient of 18 mmHg. MITRAL VALVE Mitral annular calcification is moderate. A mild mitral valve prolapse is present. There is no mitral valve stenosis. Mitral regurgitation is mild. TRICUSPID VALVE The tricuspid valve is normal in structure. There is mild tricuspid regurgitation. Right ventricular systolic pressure is estimated at 30 mmHg. There is borderline pulmonary hypertension. PULMONIC VALVE The pulmonic valve is not well visualized. There is no pulmonic valvular regurgitation. GREAT VESSELS The aortic root is normal in size. PERICARDIAL EFFUSION There is no significant pericardial effusion. <Conclusion> Left ventricle systolic function is normal. The Ejection Fraction is 60%. Diastolic dysfunction. No aortic regurgitation is present. There is moderate valvular aortic stenosis. A mild mitral valve prolapse is present. Mitral regurgitation is mild. There is mild tricuspid regurgitation. There is borderline pulmonary hypertension. There is no pulmonic valvular regurgitation.
[2016-08-12] MEDS: GlipiZIDE 10 mg SR Tab PO SCH ×2 (11:01→18:02)
[2016-08-12] MEDS: Megestrol Acetate 40 mg/ml Cup PO SCH (11:01)
[2016-08-12] MEDS: Alum-Mag Hydrox-Simethicone Susp (30 mL) PO SCH ×2 (11:01→18:03)
[2016-08-12] MEDS: Multiple Vitamins Tab PO SCH (11:01)
[2016-08-12] MEDS: Pantoprazole 40 mg EC Tab PO SCH (11:01)
--- NOTE | 2016-08-12 11:34 | CP.PCM.PN ---
Subjective - Date & Time of Evaluation Date of Evaluation: 08/12/16 Time of Evaluation: 11:32 - Subjective Subjective: sob unable to do pt Objective - Vital Signs/Intake and Output Vital Signs (last 24 hours): Temp Pulse Resp BP Pulse Ox 97.8 F 78 20 113/65 98 08/12/16 07:54 08/12/16 07:54 08/12/16 07:54 08/12/16 11:02 08/12/16 07:54 - Medications Medications: Current Medications Acetaminophen (Tylenol 325mg Tab) 650 mg PO Q6 PRN PRN Reason: pain Last Admin: 08/08/16 21:51 Dose: 650 mg Al Hydrox/Mg Hydrox/Simethicone (Maalox Plus 30 Ml) 30 ml PO TID [facility] Last Admin: 08/12/16 11:01 Dose: 30 ml Albuterol (Ventolin Hfa 90 Mcg/Actuation (8 G)) 1 puff IH RQID PRN PRN Reason: WHEEZING OR SOB Aspirin (Aspirin Chewable) 81 mg PO DAILY [facility] Last Admin: 08/12/16 11:01 Dose: 81 mg Enalapril Maleate (Vasotec) 5 mg PO DAILY [facility] Last Admin: 08/12/16 11:02 Dose: 5 mg Glipizide (Glucotrol Xl) 10 mg PO BID [facility] Last Admin: 08/12/16 11:01 Dose: 10 mg Heparin Sodium (Porcine) (Heparin) 5,000 units SC Q12 [facility] Last Admin: 08/12/16 11:02 Dose: 5,000 units Insulin Aspart (Novolog Mix 70/30 (70/30 Units/Ml)) 20 units SC HS [facility] Last Admin: 08/11/16 21:38 Dose: 20 units Megestrol Acetate (Megace) 400 mg PO DAILY [facility] Last Admin: 08/12/16 11:01 Dose: 400 mg Multivitamins (Hexavitamin) 1 tab PO DAILY [facility] Last Admin: 08/11/16 10:53 Dose: 1 tab Pantoprazole Sodium (Protonix Ec Tab) 40 mg PO DAILY [facility] Last Admin: 08/12/16 11:01 Dose: 40 mg Rosuvastatin Calcium (Crestor) 2.5 mg PO HS [facility] Last Admin: 08/11/16 21:37 Dose: 2.5 mg Sitagliptin Phosphate (Januvia) 25 mg PO DAILY [facility] Last Admin: 08/12/16 11:01 Dose: 25 mg - Constitutional Appears: Non-toxic - Head Exam Head Exam: NORMAL INSPECTION - Eye Exam Eye Exam: Normal appearance - ENT Exam ENT Exam: Normal Exam - Neck Exam Neck Exam: Full ROM - Respiratory Exam Respiratory Exam: Decreased Breath Sounds - Cardiovascular Exam Cardiovascular Exam: REGULAR RHYTHM - GI/Abdominal Exam GI & Abdominal Exam: Normal Bowel Sounds - Back Exam Back Exam: NORMAL INSPECTION - Neurological Exam Neurological Exam: Alert, Oriented x3 - Psychiatric Exam Psychiatric exam: Normal Affect - Skin Skin Exam: Pallor Assessment and Plan - Assessment and Plan (Free Text) Assessment: sob athna diastolic dysfunction generalised weekness aneamia Plan: pft pulmonary diana
--- NOTE | 2016-08-12 15:34 | CP.PCM.PN ---
Subjective - Date & Time of Evaluation Date of Evaluation: 08/12/16 Time of Evaluation: 15:30 - Subjective Subjective: tremulous No dizziness Objective - Vital Signs/Intake and Output Vital Signs (last 24 hours): Temp Pulse Resp BP Pulse Ox 97.8 F 78 20 113/65 98 08/12/16 07:54 08/12/16 07:54 08/12/16 07:54 08/12/16 11:02 08/12/16 07:54 - Medications Medications: Current Medications Acetaminophen (Tylenol 325mg Tab) 650 mg PO Q6 PRN PRN Reason: pain Last Admin: 08/08/16 21:51 Dose: 650 mg Al Hydrox/Mg Hydrox/Simethicone (Maalox Plus 30 Ml) 30 ml PO TID [facility] Last Admin: 08/12/16 11:01 Dose: 30 ml Albuterol (Ventolin Hfa 90 Mcg/Actuation (8 G)) 1 puff IH RQID PRN PRN Reason: WHEEZING OR SOB Aspirin (Aspirin Chewable) 81 mg PO DAILY [facility] Last Admin: 08/12/16 11:01 Dose: 81 mg Enalapril Maleate (Vasotec) 5 mg PO DAILY [facility] Last Admin: 08/12/16 11:02 Dose: 5 mg Glipizide (Glucotrol Xl) 10 mg PO BID [facility] Last Admin: 08/12/16 11:01 Dose: 10 mg Heparin Sodium (Porcine) (Heparin) 5,000 units SC Q12 [facility] Last Admin: 08/12/16 11:02 Dose: 5,000 units Insulin Aspart (Novolog Mix 70/30 (70/30 Units/Ml)) 20 units SC HS [facility] Last Admin: 08/11/16 21:38 Dose: 20 units Megestrol Acetate (Megace) 400 mg PO DAILY [facility] Last Admin: 08/12/16 11:01 Dose: 400 mg Multivitamins (Hexavitamin) 1 tab PO DAILY [facility] Last Admin: 08/12/16 11:01 Dose: 1 tab Pantoprazole Sodium (Protonix Ec Tab) 40 mg PO DAILY [facility] Last Admin: 08/12/16 11:01 Dose: 40 mg Rosuvastatin Calcium (Crestor) 2.5 mg PO HS [facility] Last Admin: 08/11/16 21:37 Dose: 2.5 mg Sitagliptin Phosphate (Januvia) 25 mg PO DAILY [facility] Last Admin: 08/12/16 11:01 Dose: 25 mg - Head Exam Head Exam: ATRAUMATIC - ENT Exam ENT Exam: Normal Exam - Neck Exam Neck Exam: Normal Inspection - Respiratory Exam Respiratory Exam: Decreased Breath Sounds - Cardiovascular Exam Cardiovascular Exam: REGULAR RHYTHM, +S1, +S2 - GI/Abdominal Exam GI & Abdominal Exam: Normal Bowel Sounds - Extremities Exam Extremities Exam: Normal Inspection Assessment and Plan - Assessment and Plan (Free Text) Assessment: C/P DC r/o COPD Moderate DM Plan: Cont Acetaminophen (Tylenol 325mg Tab) 650 mg PO Q6 PRN PRN Reason: pain Last Admin: 08/08/16 21:51 Dose: 650 mg Al Hydrox/Mg Hydrox/Simethicone (Maalox Plus 30 Ml) 30 ml PO TID [facility] Last Admin: 08/12/16 11:01 Dose: 30 ml Albuterol (Ventolin Hfa 90 Mcg/Actuation (8 G)) 1 puff IH RQID PRN PRN Reason: WHEEZING OR SOB Aspirin (Aspirin Chewable) 81 mg PO DAILY [facility] Last Admin: 08/12/16 11:01 Dose: 81 mg Enalapril Maleate (Vasotec) 5 mg PO DAILY [facility] Last Admin: 08/12/16 11:02 Dose: 5 mg Glipizide (Glucotrol Xl) 10 mg PO BID [facility] Last Admin: 08/12/16 11:01 Dose: 10 mg Heparin Sodium (Porcine) (Heparin) 5,000 units SC Q12 [facility] Last Admin: 08/12/16 11:02 Dose: 5,000 units Insulin Aspart (Novolog Mix 70/30 (70/30 Units/Ml)) 20 units SC [facility] Last Admin: 08/11/16 21:38 Dose: 20 units Megestrol Acetate (Megace) 400 mg PO DAILY [facility] Last Admin: 08/12/16 11:01 Dose: 400 mg Multivitamins (Hexavitamin) 1 tab PO DAILY [facility] Last Admin: 08/12/16 11:01 Dose: 1 tab Pantoprazole Sodium (Protonix Ec Tab) 40 mg PO DAILY [facility] Last Admin: 08/12/16 11:01 Dose: 40 mg Rosuvastatin Calcium (Crestor) 2.5 mg PO [facility] Last Admin: 08/11/16 21:37 Dose: 2.5 mg Sitagliptin Phosphate (Januvia) 25 mg PO DAILY [facility] Last Admin: 08/12/16 11:01 Dose: 25 mg For pulmonary Consult Echo report reviewed and observation for Moderate as COPD appears the main reason for SOB and the patient is a poor surgical candidate
[2016-08-12] MEDS: Rosuvastatin Calcium 2.5 mg Tab PO SCH (21:53)
[2016-08-12] MEDS: (Novolog Mix 70/30) Insulin Aspart/Insulin Aspar 100 units/ml SC SCH (21:54)
--- NOTE | 2016-08-13 12:00 | CP.PCM.PN ---
Subjective - Date & Time of Evaluation Date of Evaluation: 08/13/16 Time of Evaluation: 11:58 - Subjective Subjective: feels weeke sob pale Objective - Vital Signs/Intake and Output Vital Signs (last 24 hours): Temp Pulse Resp BP Pulse Ox 97.5 F L 80 18 129/69 96 08/13/16 09:56 08/13/16 09:56 08/13/16 09:56 08/13/16 09:56 08/13/16 09:56 Intake and Output: 08/13/16 08/13/16 06:59 18:59 Intake Total 100 Balance 100 - Medications Medications: Current Medications Acetaminophen (Tylenol 325mg Tab) 650 mg PO Q6 PRN PRN Reason: pain Last Admin: 08/08/16 21:51 Dose: 650 mg Al Hydrox/Mg Hydrox/Simethicone (Maalox Plus 30 Ml) [address] [facility] Last Admin: 08/12/16 18:03 Dose: Not Given Albuterol (Ventolin Hfa 90 Mcg/Actuation (8 G)) 1 puff IH RQID PRN PRN Reason: WHEEZING OR SOB Aspirin (Aspirin Chewable) [address] [facility] Last Admin: 08/12/16 11:01 Dose: 81 mg Enalapril Maleate (Vasotec) [address] [facility] Last Admin: 08/12/16 11:02 Dose: 5 mg Glipizide (Glucotrol Xl) [address] [facility] Last Admin: 08/12/16 18:02 Dose: 10 mg Insulin Aspart (Novolog Mix 70/30 (70/30 Units/Ml)) 20 units SC [facility] Last Admin: 08/12/16 21:54 Dose: 20 units Megestrol Acetate (Megace) [address] [facility] Last Admin: 08/12/16 11:01 Dose: 400 mg Multivitamins (Hexavitamin) [address] [facility] Last Admin: 08/12/16 11:01 Dose: 1 tab Pantoprazole Sodium (Protonix Ec Tab) [address] [facility] Last Admin: 08/12/16 11:01 Dose: 40 mg Rosuvastatin Calcium (Crestor) 2.[address] [facility] Last Admin: 08/12/16 21:53 Dose: 2.5 mg Sitagliptin Phosphate (Januvia) [address] [facility] Last Admin: 08/12/16 11:01 Dose: 25 mg - Constitutional Appears: Non-toxic - Head Exam Head Exam: NORMAL INSPECTION - Eye Exam Eye Exam: Normal appearance Pupil Exam: NORMAL ACCOMODATION - ENT Exam ENT Exam: Mucous Membranes Dry, Normal Exam - Respiratory Exam Respiratory Exam: Decreased Breath Sounds - Cardiovascular Exam Cardiovascular Exam: REGULAR RHYTHM - GI/Abdominal Exam GI & Abdominal Exam: Normal Bowel Sounds - Rectal Exam Rectal Exam: NORMAL INSPECTION - Extremities Exam Extremities Exam: Tenderness - Back Exam Back Exam: NORMAL INSPECTION - Neurological Exam Neurological Exam: Abnormal Gait, Oriented x3 - Psychiatric Exam Psychiatric exam: Normal Affect - Skin Skin Exam: Pallor Assessment and Plan - Assessment and Plan (Free Text) Assessment: generalised weekness aneamia dmid as copd Plan: megan
[2016-08-13] MEDS: Alum-Mag Hydrox-Simethicone Susp (30 mL) PO SCH ×4 (13:18→18:53)
[2016-08-13] MEDS: GlipiZIDE 10 mg SR Tab PO SCH ×2 (13:18→18:27)
[2016-08-13] MEDS: Multiple Vitamins Tab PO SCH (13:18)
[2016-08-13] MEDS: Pantoprazole 40 mg EC Tab PO SCH (13:18)
[2016-08-13] MEDS: Megestrol Acetate 40 mg/ml Cup PO SCH (13:18)
--- NOTE | 2016-08-13 19:26 | CARD ---
APPROVED REPORT EKG Measurement Heart [id number] <Conclusion> Normal sinus rhythm Normal ECG
[2016-08-13] MEDS: Rosuvastatin Calcium 2.5 mg Tab PO SCH (22:42)
[2016-08-13] MEDS: (Novolog Mix 70/30) Insulin Aspart/Insulin Aspar 100 units/ml SC SCH (22:42)
[2016-08-14] MEDS: Multiple Vitamins Tab PO SCH (10:59)
[2016-08-14] MEDS: Alum-Mag Hydrox-Simethicone Susp (30 mL) PO SCH ×3 (10:59→17:31)
[2016-08-14] MEDS: Megestrol Acetate 40 mg/ml Cup PO SCH (10:59)
[2016-08-14] MEDS: Pantoprazole 40 mg EC Tab PO SCH (10:59)
[2016-08-14] MEDS: GlipiZIDE 10 mg SR Tab PO SCH ×2 (10:59→17:31)
--- NOTE | 2016-08-14 13:37 | CP.PCM.PN ---
Subjective - Date & Time of Evaluation Date of Evaluation: 08/14/16 Time of Evaluation: 13:35 - Subjective Subjective: sob weeke canot swallow the food Objective - Vital Signs/Intake and Output Vital Signs (last 24 hours): Temp Pulse Resp BP Pulse Ox 98.1 F 95 H 20 127/79 96 08/13/16 23:14 08/13/16 23:30 08/13/16 23:14 08/14/16 11:01 08/13/16 23:14 - Medications Medications: Current Medications Acetaminophen (Tylenol 325mg Tab) 650 mg PO Q6 PRN PRN Reason: pain Last Admin: 08/08/16 21:51 Dose: 650 mg Al Hydrox/Mg Hydrox/Simethicone (Maalox Plus 30 Ml) 30 ml PO TID [facility] Last Admin: 08/14/16 10:59 Dose: 30 ml Albuterol (Ventolin Hfa 90 Mcg/Actuation (8 G)) 1 puff IH RQID PRN PRN Reason: WHEEZING OR SOB Aspirin (Aspirin Chewable) 81 mg PO DAILY [facility] Last Admin: 08/14/16 10:59 Dose: 81 mg Enalapril Maleate (Vasotec) 5 mg PO DAILY [facility] Last Admin: 08/14/16 11:01 Dose: 5 mg Glipizide (Glucotrol Xl) 10 mg PO BID [facility] Last Admin: 08/14/16 10:59 Dose: 10 mg Insulin Aspart (Novolog Mix 70/30 (70/30 Units/Ml)) 20 units SC HS [facility] Last Admin: 08/13/16 22:42 Dose: 20 units Megestrol Acetate (Megace) 400 mg PO DAILY [facility] Last Admin: 08/14/16 10:59 Dose: 400 mg Multivitamins (Hexavitamin) 1 tab PO DAILY [facility] Last Admin: 08/14/16 10:59 Dose: 1 tab Pantoprazole Sodium (Protonix Ec Tab) 40 mg PO DAILY [facility] Last Admin: 08/14/16 10:59 Dose: 40 mg Rosuvastatin Calcium (Crestor) 2.5 mg PO HS [facility] Last Admin: 08/13/16 22:42 Dose: 2.5 mg Sitagliptin Phosphate (Januvia) 25 mg PO DAILY [facility] Last Admin: 08/14/16 10:59 Dose: 25 mg - Constitutional Appears: Non-toxic - Head Exam Head Exam: NORMOCEPHALIC - Eye Exam Eye Exam: Normal appearance Pupil Exam: NORMAL ACCOMODATION - ENT Exam ENT Exam: Mucous Membranes Dry - Neck Exam Neck Exam: Full ROM - Respiratory Exam Respiratory Exam: Clear to Ausculation Bilateral - Cardiovascular Exam Cardiovascular Exam: REGULAR RHYTHM - GI/Abdominal Exam GI & Abdominal Exam: Tenderness - Rectal Exam Rectal Exam: NORMAL INSPECTION - Extremities Exam Extremities Exam: Normal Inspection - Back Exam Back Exam: NORMAL INSPECTION - Neurological Exam Neurological Exam: Awake - Psychiatric Exam Psychiatric exam: Depressed - Skin Skin Exam: Pallor Assessment and Plan - Assessment and Plan (Free Text) Assessment: generalised weekness copd dm gastriris praveena apetite Plan: BEE
[2016-08-14] MEDS: (Novolog Mix 70/30) Insulin Aspart/Insulin Aspar 100 units/ml SC SCH (22:03)
[2016-08-14] MEDS: Rosuvastatin Calcium 2.5 mg Tab PO SCH (22:04)
[2016-08-15 01:17] VITALS: O2SAT 99
[2016-08-15] MEDS: GlipiZIDE 10 mg SR Tab PO SCH ×2 (10:05→17:25)
[2016-08-15] MEDS: Alum-Mag Hydrox-Simethicone Susp (30 mL) PO SCH ×3 (10:06→17:25)
[2016-08-15] MEDS: Megestrol Acetate 40 mg/ml Cup PO SCH (10:06)
[2016-08-15] MEDS: Multiple Vitamins Tab PO SCH (10:06)
[2016-08-15] MEDS: Pantoprazole 40 mg EC Tab PO SCH (10:06)
--- NOTE | 2016-08-15 14:02 | CP.PCM.PN ---
Subjective - Date & Time of Evaluation Date of Evaluation: 08/15/16 Time of Evaluation: 11:00 - Subjective Subjective: Pt seen and examined today, denies any chest pain, palpitation, dizziness, N/V/ D , c/o sob with activity and generalized weakness No overnight events reported by RN troponin - negative Objective - Vital Signs/Intake and Output Vital Signs (last 24 hours): Temp Pulse Resp BP Pulse Ox 97.5 F L 102 H 20 138/73 99 08/15/16 07:00 08/15/16 07:00 08/15/16 07:00 08/15/16 10:05 08/15/16 07:00 Intake and Output: 08/15/16 08/15/16 06:59 18:59 Intake Total 400 Balance 400 - Medications Medications: Current Medications Acetaminophen (Tylenol 325mg Tab) 650 mg PO Q6 PRN PRN Reason: pain Last Admin: 08/08/16 21:51 Dose: 650 mg Al Hydrox/Mg Hydrox/Simethicone (Maalox Plus 30 Ml) 30 ml PO TID [facility] Last Admin: 08/15/16 13:15 Dose: 30 ml Albuterol (Ventolin Hfa 90 Mcg/Actuation (8 G)) 1 puff IH RQID PRN PRN Reason: WHEEZING OR SOB Aspirin (Aspirin Chewable) 81 mg PO DAILY [facility] Last Admin: 08/15/16 10:05 Dose: 81 mg Enalapril Maleate (Vasotec) 5 mg PO DAILY [facility] Last Admin: 08/15/16 10:05 Dose: 5 mg Glipizide (Glucotrol Xl) 10 mg PO BID [facility] Last Admin: 08/15/16 10:05 Dose: 10 mg Insulin Aspart (Novolog Mix 70/30 (70/30 Units/Ml)) 20 units SC HS [facility] Last Admin: 08/14/16 22:03 Dose: 20 units Megestrol Acetate (Megace) 400 mg PO DAILY [facility] Last Admin: 08/15/16 10:06 Dose: 400 mg Multivitamins (Hexavitamin) 1 tab PO DAILY [facility] Last Admin: 08/15/16 10:06 Dose: 1 tab Pantoprazole Sodium (Protonix Ec Tab) 40 mg PO DAILY [facility] Last Admin: 08/15/16 10:06 Dose: 40 mg Rosuvastatin Calcium (Crestor) 2.5 mg PO HS [facility] Last Admin: 08/14/16 22:04 Dose: 2.5 mg Sitagliptin Phosphate (Januvia) 25 mg PO DAILY [facility] Last Admin: 08/15/16 10:05 Dose: 25 mg - Constitutional Appears: Well, No Acute Distress - ENT Exam ENT Exam: Mucous Membranes Moist - Respiratory Exam Respiratory Exam: Decreased Breath Sounds, NORMAL BREATHING PATTERN - Cardiovascular Exam Cardiovascular Exam: REGULAR RHYTHM, +S1, +S2 - Neurological Exam Neurological Exam: Alert, Awake, Oriented x3 Assessment and Plan - Assessment and Plan (Free Text) Assessment: A/P 81 yr old female with PMHX of Asthma, on home o2 , CHF, CVA, Diabetes, HTN, Hypercholesterolemia, Osteoporosis, Chronic Kidney Disease admitted for chest pain troponin - negative Echo- LVF- NORMAL , EF- 60% D/W Dr. Patterson, cleared for discharge from cardiology stand point Pt refused blood work Patient accepted at [facility] rehab D/W with Dr. Pace, stable for discharge to [place] today and Dr. Pace will follow the patient at [facility]
--- NOTE | 2016-08-15 14:12 | PCM.HF ---
Heart Failure Core Measure - Heart Failure Ejection Fraction: 40 % or Greater PAUL Inhibitor Prescribed: Yes Beta-Jose M Prescribed: None Contraindication/Reason for not providing: COPD Angiotensin II Receptor Jose M Prescribed: No Contraindication/Reason for not providing: on paul AnticoagulationTherapy for Atrial Fibrillation/Atrialflutter: No Contraindication/Reason for not providing: no hx of afib Contraindication/Reason for not providing: ef.45 Hydralazine Nitrate Prescribed: No Contraindication/Reason for not providing: ef>45 Implantable Cardioverter Defibrillator Therapy: No Contraindication/Reason for not providing: ef>45 Cardiac Resynchronization Therapy Prescribed: No Contraindication/Reason for not providing: ef.45 - Follow up [facility] be discharged [facility]) Follow Up Date (must be within 7 days from discharge): 08/18/16 Follow Up Time: 09:00
[2016-08-15 15:10] LABS: GFR AFRICAN-AMERICAN 35; GFR NON-AFRICAN AMERICAN 29
[2016-08-15 15:11] LABS: BLOOD UREA NITROGEN 65 mg/dL (7-17); CALCIUM 9.5 mg/dl (8.6-10.4)
--- NOTE | 2016-08-15 15:16 | CP.PCM.PN ---
Subjective - Date & Time of Evaluation Date of Evaluation: 08/15/16 Time of Evaluation: 15:14 - Subjective Subjective: No c/p SOB improved Objective - Vital Signs/Intake and Output Vital Signs (last 24 hours): Temp Pulse Resp BP Pulse Ox 97.5 F L 102 H 20 138/73 99 08/15/16 07:00 08/15/16 07:00 08/15/16 07:00 08/15/16 10:05 08/15/16 07:00 Intake and Output: 08/15/16 08/15/16 06:59 18:59 Intake Total 400 Balance 400 - Medications Medications: Current Medications Acetaminophen (Tylenol 325mg Tab) 650 mg PO Q6 PRN PRN Reason: pain Last Admin: 08/08/16 21:51 Dose: 650 mg Al Hydrox/Mg Hydrox/Simethicone (Maalox Plus 30 Ml) 30 ml PO TID [facility] Last Admin: 08/15/16 13:15 Dose: 30 ml Albuterol (Ventolin Hfa 90 Mcg/Actuation (8 G)) 1 puff IH RQID PRN PRN Reason: WHEEZING OR SOB Aspirin (Aspirin Chewable) 81 mg PO DAILY [facility] Last Admin: 08/15/16 10:05 Dose: 81 mg Enalapril Maleate (Vasotec) 5 mg PO DAILY [facility] Last Admin: 08/15/16 10:05 Dose: 5 mg Glipizide (Glucotrol Xl) 10 mg PO BID [facility] Last Admin: 08/15/16 10:05 Dose: 10 mg Insulin Aspart (Novolog Mix 70/30 (70/30 Units/Ml)) 20 units SC [facility] Last Admin: 08/14/16 22:03 Dose: 20 units Megestrol Acetate (Megace) 400 mg PO DAILY [facility] Last Admin: 08/15/16 10:06 Dose: 400 mg Multivitamins (Hexavitamin) 1 tab PO DAILY [facility] Last Admin: 08/15/16 10:06 Dose: 1 tab Pantoprazole Sodium (Protonix Ec Tab) 40 mg PO DAILY [facility] Last Admin: 08/15/16 10:06 Dose: 40 mg Rosuvastatin Calcium (Crestor) 2.5 mg PO HS [facility] Last Admin: 08/14/16 22:04 Dose: 2.5 mg Sitagliptin Phosphate (Januvia) 25 mg PO DAILY [facility] Last Admin: 08/15/16 10:05 Dose: 25 mg - Labs Labs: 08/15/16 11:49 - Head Exam Head Exam: NORMAL INSPECTION - Eye Exam Eye Exam: Normal appearance - Respiratory Exam Respiratory Exam: Rhonchi - Cardiovascular Exam Cardiovascular Exam: REGULAR RHYTHM - GI/Abdominal Exam GI & Abdominal Exam: Soft - Extremities Exam Extremities Exam: Normal Inspection Assessment and Plan - Assessment and Plan (Free Text) Assessment: COPD C/P MO ruled out Refuses rehab HTN DM Plan: Cont. Aspirin (Aspirin Chewable) 81 mg PO DAILY [facility] Last Admin: 08/15/16 10:05 Dose: 81 mg Enalapril Maleate (Vasotec) 5 mg PO DAILY [facility] Last Admin: 08/15/16 10:05 Dose: 5 mg Glipizide (Glucotrol Xl) 10 mg PO BID [facility] Last Admin: 08/15/16 10:05 Dose: 10 mg Insulin Aspart (Novolog Mix 70/30 (70/30 Units/Ml)) 20 units SC [facility] Last Admin: 08/14/16 22:03 Dose: 20 units Megestrol Acetate (Megace) 400 mg PO DAILY [facility] Last Admin: 08/15/16 10:06 Dose: 400 mg Multivitamins (Hexavitamin) 1 tab PO DAILY [facility] Last Admin: 08/15/16 10:06 Dose: 1 tab Pantoprazole Sodium (Protonix Ec Tab) 40 mg PO DAILY [facility] Last Admin: 08/15/16 10:06 Dose: 40 mg Rosuvastatin Calcium (Crestor) 2.5 mg PO [facility]
--- NOTE | 2016-08-15 17:09 | CP.PCM.PN ---
Subjective - Date & Time of Evaluation Date of Evaluation: 08/15/16 Time of Evaluation: 17:06 - Subjective Subjective: seen and examined today and ready for rehab Objective - Vital Signs/Intake and Output Vital Signs (last 24 hours): Temp Pulse Resp BP Pulse Ox 97.4 F L 99 H 20 122/66 99 08/15/16 15:30 08/15/16 15:30 08/15/16 15:30 08/15/16 15:30 08/15/16 15:30 Intake and Output: 08/15/16 08/15/16 06:59 18:59 Intake Total 400 Balance 400 - Medications Medications: Current Medications Acetaminophen (Tylenol 325mg Tab) 650 mg PO Q6 PRN PRN Reason: pain Last Admin: 08/08/16 21:51 Dose: 650 mg Al Hydrox/Mg Hydrox/Simethicone (Maalox Plus 30 Ml) 30 ml PO TID [facility] Last Admin: 08/15/16 13:15 Dose: 30 ml Albuterol (Ventolin Hfa 90 Mcg/Actuation (8 G)) 1 puff IH RQID PRN PRN Reason: WHEEZING OR SOB Aspirin (Aspirin Chewable) 81 mg PO DAILY [facility] Last Admin: 08/15/16 10:05 Dose: 81 mg Enalapril Maleate (Vasotec) 5 mg PO DAILY [facility] Last Admin: 08/15/16 10:05 Dose: 5 mg Glipizide (Glucotrol Xl) 10 mg PO BID [facility] Last Admin: 08/15/16 10:05 Dose: 10 mg Insulin Aspart (Novolog Mix 70/30 (70/30 Units/Ml)) 20 units SC [facility] Last Admin: 08/14/16 22:03 Dose: 20 units Megestrol Acetate (Megace) 400 mg PO DAILY [facility] Last Admin: 08/15/16 10:06 Dose: 400 mg Multivitamins (Hexavitamin) 1 tab PO DAILY [facility] Last Admin: 08/15/16 10:06 Dose: 1 tab Pantoprazole Sodium (Protonix Ec Tab) 40 mg PO DAILY [facility] Last Admin: 08/15/16 10:06 Dose: 40 mg Rosuvastatin Calcium (Crestor) 2.5 mg PO [facility] Last Admin: 08/14/16 22:04 Dose: 2.5 mg Sitagliptin Phosphate (Januvia) 25 mg PO DAILY [facility] Last Admin: 08/15/16 10:05 Dose: 25 mg - Labs Labs: 08/15/16 11:49 - Constitutional Appears: Non-toxic - Head Exam Head Exam: NORMAL INSPECTION - Eye Exam Eye Exam: PERRL Pupil Exam: NORMAL ACCOMODATION - ENT Exam ENT Exam: Mucous Membranes Moist - Neck Exam Neck Exam: Full ROM - Respiratory Exam Respiratory Exam: Decreased Breath Sounds - Cardiovascular Exam Cardiovascular Exam: REGULAR RHYTHM - GI/Abdominal Exam GI & Abdominal Exam: Normal Bowel Sounds - Rectal Exam Rectal Exam: NORMAL INSPECTION - Extremities Exam Extremities Exam: Normal Inspection - Back Exam Back Exam: NORMAL INSPECTION - Neurological Exam Neurological Exam: Abnormal Gait - Psychiatric Exam Psychiatric exam: Normal Affect - Skin Skin Exam: Dry - Additional Findings Additional findings: weeke Assessment and Plan - Assessment and Plan (Free Text) Assessment: weekness copd arthrisi dm Plan: dicharge today to [facility] floor [facility]
[2016-08-15] MEDS: Rosuvastatin Calcium 2.5 mg Tab PO SCH (21:42)
[2016-08-15] MEDS: (Novolog Mix 70/30) Insulin Aspart/Insulin Aspar 100 units/ml SC SCH (21:42)
[2016-08-15 21:47] VITALS: BP 149/82; PULSE 123; RESP 16; TEMP 98.4
--- NOTE | 2016-08-17 14:19 | CARD ---
APPROVED REPORT EKG Measurement Heart [id number] <Conclusion> Suspect arm lead reversal, interpretation assumes no reversal Normal sinus rhythm Left posterior fascicular block Abnormal ECG
--- NOTE | 2016-08-21 12:18 | DS ---
CHIEF COMPLAINT: The patient came in to the hospital to the emergency room on 08/08/2016 with acute chest pain in the retrosternal and short of breath and chest tightness. HISTORY OF PRESENT ILLNESS: She is 81-year-old female who has a history of heart failure, COPD, diabetes, hypertension, hypercholesterolemia. PHYSICAL EXAMINATION: At the time she came in, her vitals were okay. Her blood pressure was 120 and her pulse was 84, pulse oximetry was 98%. LABORATORY DATA: Cardiac enzymes were negative. EKG did not show any acute [place]. Her hemoglobin and hematocrit were 9.2/28.7, her sugar was 224, her BUN was 65, and creatinine 1.6. She was little dehydrated. She has very poor appetite. She has a history of gastritis. She had a chest x-ray and EKG and she was admitted to telemetry for acute chest pain. Dr. Morgan was consulted and her chest x-ray was reported to be no active disease. MEDICATIONS: The patient was on acetaminophen, albuterol, aspirin, enalapril, glipizide, insulin, Megace for her appetite, and multiple vitamins, pantoprazole, Crestor and Januvia. ASSESSMENT AND PLAN: She was monitored for her blood sugar, which was stable and running between 282 to 374, but at the end was 226 and she was seen by the physical therapy and she was advised to go to subacute rehabilitation, so she was arranged to go to [facility], which she went after the arrangement down to [facility]. Her final diagnosis is acute chest pain, nonspecific; chronic obstructive pulmonary disease; congestive heart failure; renal insufficiency; diabetes mellitus, insulin dependent; and hypertension. Clarisa Pace MD
== END 2016-08-15 22:15 | DRG 313 ==
LOC: C.ER 11:22 → C.9E 13:39 → C.5T 15:03 → OBSVTOIN 08-10 14:25
PROVIDERS: ADMIT Internal Medicine; ATTEND Internal Medicine
DX: R07.89 Other chest pain (principal); E11.22 Type 2 diabetes mellitus with diabetic chronic kidney disease; I13.0 Hypertensive heart and chronic kidney disease with heart failure and stage 1 through stage 4 chronic kidney disease, or unspecified chronic kidney disease; E11.65 Type 2 diabetes mellitus with hyperglycemia; I50.9 Heart failure, unspecified; G20 Parkinson's disease; D64.9 Anemia, unspecified; J44.9 Chronic obstructive pulmonary disease, unspecified; N18.9 Chronic kidney disease, unspecified; M17.0 Bilateral primary osteoarthritis of knee; M81.0 Age-related osteoporosis without current pathological fracture; J45.909 Unspecified asthma, uncomplicated; M16.0 Bilateral primary osteoarthritis of hip; Z96.642 Presence of left artificial hip joint; E78.00 Pure hypercholesterolemia, unspecified; Z86.73 Personal history of transient ischemic attack (TIA), and cerebral infarction without residual deficits; Z79.4 Long term (current) use of insulin

== ENCOUNTER 2017-02-09 16:49 | Inpatient (IN) | payer MEDICARE, MEDICAID ==
[2017-02-09 16:49] VITALS: BMI 32.1
[2017-02-09] MEDS ORDERED: MethylPREDNISolone 40 mg Vial IVP STA (17:02)
[2017-02-09] MEDS ORDERED: Albuterol-Ipratrop 3 mg / 0.5 (3 ml) UD INH STA ×3 (17:02→17:03)
--- NOTE | 2017-02-09 17:07 | C.PDOC ---
History Of Present Illness 81 yo female, hx of copd, chf, presents with sob, cough, "difficulty getting air ". info obtained via area operations manager. pt states "she always has this". no fevers, (+) dry cough no other complaints. Time Seen by Provider: 02/09/17 16:52 Chief Complaint (Nursing): Cough, Cold, Congestion Past Medical History Reviewed: Historical Data, Nursing Documentation, Vital Signs Vital Signs: Last Vital Signs Temp 98.5 F 02/12/17 15:58 Pulse 93 H 02/12/17 15:58 Resp 20 02/12/17 15:58 BP 101/65 02/12/17 15:58 Pulse Ox 96 02/12/17 15:58 - Medical History PMH: Anemia, Arthritis (KNEES, HIPS), Asthma, CHF, CVA, Diabetes, HTN, Hypercholesterolemia, Osteoporosis, Chronic Kidney Disease Denies: Alzheimer's Disease, Dementia - [facility] Procedures EXCISION OF STOMACH, ENDO, DIAGN (06/17/16) OPEN REDUC-INT FIX FEMUR (01/01/13) Family History: States: Unknown Family Hx - Social History Hx Tobacco Use: No Hx Alcohol Use: No Hx Substance Use: No - Immunization History Hx Tetanus Toxoid Vaccination: (unk) Hx Influenza Vaccination: Yes Hx Pneumococcal Vaccination: (unk) Review Of Systems Except As Marked, All Systems Reviewed And Found Negative. Respiratory: Positive for: Cough, Shortness of Breath Physical Exam - Physical Exam Appears: No Acute Distress, Other (elderly female, awake, alert, no drooling. ) Skin: Normal Color, Warm, Dry Eye(s): bilateral: Normal Inspection, PERRL, EOMI Nose: Normal Throat: Normal Neck: Normal Cardiovascular: Rhythm Regular Respiratory: Decreased Breath Sounds (bl ), Rales (at bases), Wheezing ( scattered) Gastrointestinal/Abdominal: Normal Exam Rectal: Other (Pt refusing rectal examination. Drum Carrier was used to discuss risks. Pt denies blood in stool.) Back: Normal Inspection Extremity: Normal ROM ED Course And Treatment - Laboratory Results Result Diagrams: 02/12/17 08:50 02/12/17 11:40 ECG: Interpreted By Me, Viewed By Me ECG Rhythm: Sinus Rhythm (with no ST/T changes) Rate From EC O2 Sat by Pulse Oximetry: 96 (RA) Pulse Ox Interpretation: Normal Medical Decision Making Medical Decision Making: ro chf copd - labs imagng pendign. Disposition - Disposition Disposition: HOSPITALIZED Disposition Time: 04:00 Condition: FAIR - Clinical Impression Clinical Impression: Acute exacerbation of congestive heart failure, Anemia Decision To Admit - Pt Status Changed To: Hospital Disposition Of: Inpatient - Admit Certification Admit to Inpatient:: After my assessment, the patient will require hospitalization for at least two midnights. This is because of the severity of symptoms shown, intensity of services needed, and/or the medical risk in this patient being treated as an outpatient. - InPatient: Physician Admission Certification: I certify that this patient requires 2 or more midnights of care for the following reason:: needs blood and iv steriods - . Bed Request Type: Telemetry Admitting Physician: Clarisa Pace Patient Diagnosis: COPD (chronic obstructive pulmonary disease), Acute exacerbation of congestive heart failure, Anemia
[2017-02-09] MEDS ORDERED: Albuterol-Ipratrop 3 mg / 0.5 (3 ml) UD ONE (17:20)
--- NOTE | 2017-02-09 17:41 | RAD ---
HISTORY: chest pain COMPARISON: Chest x-ray performed 08/08/16 TECHNIQUE: Chest, one view. FINDINGS: LUNGS: Small left greater than right lower lobe atelectasis/ infiltrate and or pleural effusion. Mild pulmonary venous congestion. No definite pneumothorax. Please note that chest x-ray has limited sensitivity for the detection of pulmonary masses. CARDIOVASCULAR: Cardiomegaly. Atherosclerotic calcifications. OSSEOUS STRUCTURES: Osseous demineralization. Degenerative changes. VISUALIZED UPPER ABDOMEN: Unremarkable. OTHER FINDINGS: None. IMPRESSION: Small left greater than right lower lobe atelectasis/ infiltrate and or pleural effusion. Mild pulmonary venous congestion.
[2017-02-09 17:43] LABS: BASO # 0.1 K/uL (0.0-0.2); BASO % 0.8 % (0.0-2.0); EOS # 0.1 K/uL (0.0-0.7); EOS % 0.5 % (0.0-4.0); LYMPH # 3.4 K/uL (1.0-4.3); LYMPH % 26.3 % (20.0-40.0); MEAN CORPUSCULAR HEMOGLOBIN 20.8 pg (27.0-31.0); MEAN CORPUSCULAR HGB CONC 30.6 g/dL (33.0-37.0); MEAN PLATELET VOLUME 10.4 fL (7.2-11.7); MONO # 0.8 K/uL (0.0-0.8); MONO % 6.6 % (0.0-10.0); NEUT # 8.4 K/uL (1.8-7.0); NEUT % 65.8 % (50.0-75.0); RBC 2.96 Mil/uL (3.80-5.20); WHITE BLOOD COUNT 12.8 K/uL (4.8-10.8)
[2017-02-09] MEDS ORDERED: Moxifloxacin IV 400mg/250ml NS 400 MG/250 ML BAG IVPB ONE (17:43)
[2017-02-09 17:52] LABS: ALB/GLOB RATIO 1.2 (1.0-2.1); ALT/SGPT 27 U/L (9-52); AST/SGOT 23 U/L (14-36); BLOOD UREA NITROGEN 57 mg/dL (7-17); CALCIUM 8.2 mg/dl (8.6-10.4); GFR AFRICAN-AMERICAN 37; GFR NON-AFRICAN AMERICAN 31
[2017-02-09 17:58] LABS: HEMOGLOBIN 6.1 g/dL (11.0-16.0); MEAN CELL VOLUME 67.8 fL (81.0-99.0)
[2017-02-09 18:01] LABS: B-TYPE NATRIURETIC PEPTIDE 1670 pg/mL (0-900); PROTHROMBIN TIME 11.7 SECONDS (9.7-12.2)
[2017-02-09] MEDS: Rosuvastatin Calcium 2.5 mg Tab PO SCH (21:57)
[2017-02-09] MEDS: Insulin Detemir 100 units/ml Vial (Levemir) SC SCH (21:57)
[2017-02-10] MEDS: Albuterol-Ipratrop 3 mg / 0.5 (3 ml) UD INH SCH ×4 (02:11→22:33)
[2017-02-10] MEDS: Multiple Vitamins Tab PO SCH (09:13)
[2017-02-10] MEDS: Pantoprazole 40 mg EC Tab PO SCH (09:13)
[2017-02-10] MEDS: Megestrol Acetate 40 mg/ml Cup PO SCH (09:14)
[2017-02-10] MEDS: GlipiZIDE 10 mg SR Tab PO SCH ×2 (09:14→17:57)
[2017-02-10] MEDS: Moxifloxacin IV 400mg/250ml NS 400 MG/250 ML BAG IVPB SCH (09:16)
[2017-02-10 10:58] LABS: BASO % 0.2 % (0.0-2.0); LYMPH # 1.8 K/uL (1.0-4.3); LYMPH % 14.1 % (20.0-40.0); MEAN CORPUSCULAR HEMOGLOBIN 23.7 pg (27.0-31.0); MEAN CORPUSCULAR HGB CONC 32.4 g/dL (33.0-37.0); MEAN PLATELET VOLUME 11.3 fL (7.2-11.7); MONO # 0.6 K/uL (0.0-0.8); MONO % 4.6 % (0.0-10.0); NEUT # 10.2 K/uL (1.8-7.0); NEUT % 81.1 % (50.0-75.0); RBC 3.72 Mil/uL (3.80-5.20); RED CELL DISTRIBUTION WIDTH 21.3 % (11.5-14.5); WHITE BLOOD COUNT 12.5 K/uL (4.8-10.8)
[2017-02-10 11:14] LABS: HEMOGLOBIN 8.8 g/dL (11.0-16.0); MEAN CELL VOLUME 73.2 fL (81.0-99.0)
[2017-02-10] MEDS ORDERED: (Novolog) Insulin Aspart, Recombinant 100 u/ml 10 ml vial SC ONE (12:19)
--- NOTE | 2017-02-10 12:24 | CP.PCM.HP ---
History of Present Illness - History of Present Illness History of Present Illness: pt came in for sob cough dificulty breathing weeke hg only 6 Present on Admission - Present on Admission Any Indicators Present on Admission: Yes Review of Systems - Review of Systems Systems not reviewed;Unavailable: Acuity of Condition, Respiratory Distress - Constitutional Constitutional: Fatigue - EENT Eyes: As Per HPI Ears: As Per HPI Nose/Mouth/Throat: As Per HPI - Breasts Breasts: As Per HPI - Cardiovascular Cardiovascular: As Per HPI - Respiratory Respiratory: Cough, Dyspnea, Wheezing - Gastrointestinal Gastrointestinal: As Per HPI - Genitourinary Genitourinary: As Per HPI - Reproductive: Female Reproductive:Female: As Per HPI - Menstruation Menstruation: Post Menopausal - Musculoskeletal Musculoskeletal: Arthralgias - Integumentary Integumentary: As Per HPI - Neurological Neurological: As Per HPI - Psychiatric Psychiatric: As Per HPI - Endocrine Endocrine: As Per HPI, Cold Intolorance Additional Comments: bs hi - Hematologic/Lymphatic Hematologic: Other (aneamia) Additional comments: ameamia Past Patient History - Infectious Disease Hx of Infectious Diseases: None - Past Medical History & Family History Past Medical History?: Yes - Past Social History Smoking Status: Never Smoked - CARDIAC Hx Cardiac Disorders: Yes Hx Congestive Heart Failure: Yes Hx Hypercholesterolemia: Yes Hx Hypertension: Yes - PULMONARY Hx Respiratory Disorders: Yes Hx Asthma: Yes - NEUROLOGICAL Hx Neurological Disorder: No Hx Alzheimer's Disease: No Hx Dementia: No - HEENT Hx HEENT Problems: No - RENAL Hx Chronic Kidney Disease: Yes - ENDOCRINE/METABOLIC Hx Endocrine Disorders: Yes Hx Diabetes Mellitus Type 2: Yes - HEMATOLOGICAL/ONCOLOGICAL Hx Blood Disorders: Yes Hx Anemia: Yes - INTEGUMENTARY Hx Dermatological Problems: No - MUSCULOSKELETAL/RHEUMATOLOGICAL Hx Musculoskeletal Disorders: Yes Hx Falls: Yes - GASTROINTESTINAL Hx Gastrointestinal Disorders: No - GENITOURINARY/GYNECOLOGICAL Hx Genitourinary Disorders: No - PSYCHIATRIC Hx Psychophysiologic Disorder: No Hx Substance Use: No - SURGICAL HISTORY Hx Surgeries: Yes Hx Orthopedic Surgery: Yes (Left hip replacement and right femur) - ANESTHESIA Hx Anesthesia: Yes Hx Anesthesia Reactions: No Hx Malignant Hyperthermia: No Has any member of the family had a problem w/ anesthesia?: No Meds Allergies/Adverse Reactions: Allergies Allergy/AdvReac Type Severity Reaction Status Date / Time Penicillins Allergy Verified 08/08/16 11:40 Physical Exam - Constitutional Appears: Non-toxic, In Acute Distress - Head Exam Head Exam: ATRAUMATIC - Eye Exam Eye Exam: Normal appearance Pupil Exam: PERRL - ENT Exam ENT Exam: Mucous Membranes Moist - Neck Exam Neck exam: Positive for: Full Rom - Respiratory Exam Respiratory Exam: Decreased Breath Sounds, Wheezes - Cardiovascular Exam Cardiovascular Exam: REGULAR RHYTHM - GI/Abdominal Exam GI & Abdominal Exam: Normal Bowel Sounds - Rectal Exam Rectal Exam: NORMAL INSPECTION - Exam Exam: NORMAL INSPECTION - Extremities Exam Extremities exam: Positive for: normal inspection - Back Exam Back exam: NORMAL INSPECTION - Neurological Exam Neurological exam: Normal Gait - Psychiatric Exam Psychiatric exam: Normal Affect - Skin Skin Exam: Pallor Results - Vital Signs Recent Vital Signs: Last Vital Signs Temp 98.0 F 02/10/17 07:25 Pulse 94 H 02/10/17 07:25 Resp 18 02/10/17 07:25 BP 134/74 02/10/17 09:13 Pulse Ox 99 02/10/17 07:25 - Labs Result Diagrams: 02/10/17 10:46 02/10/17 10:46 Labs: Laboratory Results - last 24 hr 02/09/17 02/09/17 02/09/17 17:34 17:34 17:34 WBC 12.8 H RBC 2.96 L Hgb 6.1 L* D Hct 20.0 L MCV 67.8 L D MCH 20.8 L MCHC 30.6 L RDW 18.0 H Plt Count 243 MPV 10.4 Neut % (Auto) 65.8 Lymph % (Auto) 26.3 [place] % (Auto) 6.6 Eos % (Auto) 0.5 Baso % (Auto) 0.8 Neut # 8.4 H Lymph # 3.4 [place] # 0.8 Eos # 0.1 Baso # 0.1 Differential Comment PT 11.7 INR 1.0 APTT 25 Sodium 129 L Potassium 4.9 Chloride 97 L Carbon Dioxide 20 L Anion Gap 17 BUN 57 H Creatinine 1.6 H Est GFR ( Amer) 37 Est GFR (Non-Af Amer) 31 POC Glucose (mg/dL) Random Glucose 192 H Calcium 8.2 L Total Bilirubin 0.4 AST 23 ALT 27 Alkaline Phosphatase 53 Troponin I < 0.0120 NT-Pro-B Natriuret Pep 1670 H Total Protein 7.5 Albumin 4.0 Globulin 3.5 Albumin/Globulin Ratio 1.2 Influenza Typ A,B (EIA) Blood Type Antibody Screen 02/09/17 02/09/17 02/09/17 17:36 18:14 21:03 WBC RBC Hgb Hct MCV MCH MCHC RDW Plt Count MPV Neut % (Auto) Lymph % (Auto) [place] % (Auto) Eos % (Auto) Baso % (Auto) Neut # Lymph # [place] # Eos # Baso # Differential Comment PT INR APTT Sodium Potassium Chloride Carbon Dioxide Anion Gap BUN Creatinine Est GFR ( Amer) Est GFR (Non-Af Amer) POC Glucose (mg/dL) 233 H Random Glucose Calcium Total Bilirubin AST ALT Alkaline Phosphatase Troponin I NT-Pro-B Natriuret Pep Total Protein Albumin Globulin Albumin/Globulin Ratio Influenza Typ A,B (EIA) Negative for flu a/b Blood Type A POSITIVE Antibody Screen Negative 02/10/17 02/10/17 02/10/17 06:32 10:46 10:46 WBC 12.5 H RBC 3.72 L Hgb 8.8 L D Hct 27.3 L MCV 73.2 L D MCH 23.7 L MCHC 32.4 L RDW 21.3 H Plt Count 216 MPV 11.3 Neut % (Auto) 81.1 H Lymph % (Auto) 14.1 L [place] % (Auto) 4.6 Eos % (Auto) 0.0 Baso % (Auto) 0.2 Neut # 10.2 H Lymph # 1.8 [place] # 0.6 Eos # 0.0 Baso # 0.0 Differential Comment PT INR APTT Sodium 129 L Potassium 4.7 Chloride 96 L Carbon Dioxide 21 L Anion Gap 16 BUN 58 H Creatinine 1.8 H Est GFR ( Amer) 33 Est GFR (Non-Af Amer) 27 POC Glucose (mg/dL) 394 H Random Glucose 513 H* D Calcium 8.0 L Total Bilirubin AST ALT Alkaline Phosphatase Troponin I NT-Pro-B Natriuret Pep Total Protein Albumin Globulin Albumin/Globulin Ratio Influenza Typ A,B (EIA) Blood Type Antibody Screen Assessment & Plan - Assessment and Plan (Free Text) Assessment: ac pnumonia ac ex copd ac aneamia reqwierd transfusion chf dmid uncontroled Plan: as per orders - Date & Time Date: 02/10/17 Time: 12:27
[2017-02-10] MEDS: (Novolog Mix 70/30) Insulin Aspart/Insulin Aspar 100 units/ml SC SCH (17:57)
[2017-02-10] MEDS: (Novolog) Insulin Aspart, Recombinant 100 u/ml 10 ml vial SC SCH ×2 (17:58→21:50)
[2017-02-10] MEDS: Rosuvastatin Calcium 2.5 mg Tab PO SCH (21:47)
[2017-02-10] MEDS: Insulin Detemir 100 units/ml Vial (Levemir) SC SCH (21:47)
[2017-02-10] MEDS ORDERED: (Novolog Mix 70/30) Insulin Aspart/Insulin Aspar 100 units/ml SC SCH (22:00)
--- NOTE | 2017-02-10 23:29 | CARD ---
APPROVED REPORT EKG Measurement Heart [id number] <Conclusion> Normal sinus rhythm Possible Left atrial enlargement Borderline ECG
[2017-02-11] MEDS: Albuterol-Ipratrop 3 mg / 0.5 (3 ml) UD INH SCH ×4 (02:21→19:08)
[2017-02-11] MEDS: (Novolog) Insulin Aspart, Recombinant 100 u/ml 10 ml vial SC SCH ×4 (07:48→22:36)
[2017-02-11] MEDS ORDERED: Influenza Vaccine 60 mcg/0.5 mL SYR (4YR UP) IM ONE (10:00)
[2017-02-11] MEDS: GlipiZIDE 10 mg SR Tab PO SCH ×2 (10:20→17:42)
[2017-02-11] MEDS: Pantoprazole 40 mg EC Tab PO SCH (10:20)
[2017-02-11] MEDS: Multiple Vitamins Tab PO SCH (10:20)
[2017-02-11] MEDS: Megestrol Acetate 40 mg/ml Cup PO SCH (10:20)
[2017-02-11] MEDS: Moxifloxacin IV 400mg/250ml NS 400 MG/250 ML BAG IVPB SCH (10:21)
[2017-02-11] MEDS: (Novolog Mix 70/30) Insulin Aspart/Insulin Aspar 100 units/ml SC SCH ×2 (10:21→17:43)
[2017-02-11] MEDS ORDERED: Enoxaparin 40 mg Syringe SC SCH (10:30)
[2017-02-11 11:51] LABS: HEMOGLOBIN 8.8 g/dL (11.0-16.0); MEAN CELL VOLUME 73.7 fL (81.0-99.0); MEAN CORPUSCULAR HEMOGLOBIN 23.2 pg (27.0-31.0); MEAN CORPUSCULAR HGB CONC 31.5 g/dL (33.0-37.0); MEAN PLATELET VOLUME 11.2 fL (7.2-11.7); PLATELET COUNT 234 K/uL (130-400); RBC 3.79 Mil/uL (3.80-5.20); RED CELL DISTRIBUTION WIDTH 22.1 % (11.5-14.5); WHITE BLOOD COUNT 15.9 K/uL (4.8-10.8)
[2017-02-11 12:30] LABS: BANDS 3 % (0-2); LYMPHOCYTE 25 % (20-40); MONOCYTE 8 % (0-10); NEUTROPHIL 64 % (50-75); TOTAL CELLS COUNTED 100
[2017-02-11 12:31] LABS: ANISOCYTOSIS MODERATE; MICROCYTOSIS SLIGHT; PLATELET ESTIMATE NORMAL (NORMAL); POIKILOCYTOSIS SLIGHT
[2017-02-11 12:32] LABS: HYPOCHROMIC SLIGHT; OVALOCYTES SLIGHT; POLYCHROMIC SLIGHT; TEARDROP CELLS SLIGHT
[2017-02-11] MEDS: Ciprofloxacin 400mg/200ml D5W 400 MG/200 ML BAG IVPB SCH (13:35)
[2017-02-11] MEDS: Rosuvastatin Calcium 2.5 mg Tab PO SCH (21:06)
[2017-02-11] MEDS: guaiFENesin DM 100 mg-10 mg/5 ml UD PO SCH (21:26)
[2017-02-11] MEDS: Insulin Detemir 100 units/ml Vial (Levemir) SC SCH (22:36)
[2017-02-12] MEDS: guaiFENesin DM 100 mg-10 mg/5 ml UD PO SCH ×4 (02:22→22:10)
[2017-02-12] MEDS: Albuterol-Ipratrop 3 mg / 0.5 (3 ml) UD INH SCH ×4 (02:41→19:23)
[2017-02-12] MEDS: (Novolog) Insulin Aspart, Recombinant 100 u/ml 10 ml vial SC SCH ×4 (08:38→21:09)
[2017-02-12 09:10] LABS: BASO # 0.1 K/uL (0.0-0.2); BASO % 0.4 % (0.0-2.0); EOS # 0.1 K/uL (0.0-0.7); EOS % 0.4 % (0.0-4.0); HEMOGLOBIN 8.6 g/dL (11.0-16.0); LYMPH # 2.8 K/uL (1.0-4.3); LYMPH % 17.3 % (20.0-40.0); MEAN CELL VOLUME 73.4 fL (81.0-99.0); MEAN CORPUSCULAR HEMOGLOBIN 23.5 pg (27.0-31.0); MEAN PLATELET VOLUME 11.1 fL (7.2-11.7); MONO # 1.2 K/uL (0.0-0.8); MONO % 7.3 % (0.0-10.0); NEUT # 12.2 K/uL (1.8-7.0); NEUT % 74.6 % (50.0-75.0); RBC 3.68 Mil/uL (3.80-5.20); RED CELL DISTRIBUTION WIDTH 22.6 % (11.5-14.5); WHITE BLOOD COUNT 16.3 K/uL (4.8-10.8)
[2017-02-12] MEDS: Multiple Vitamins Tab PO SCH (09:41)
[2017-02-12] MEDS: Pantoprazole 40 mg EC Tab PO SCH (09:41)
[2017-02-12] MEDS: GlipiZIDE 10 mg SR Tab PO SCH ×2 (09:41→18:27)
[2017-02-12] MEDS: Megestrol Acetate 40 mg/ml Cup PO SCH (09:41)
[2017-02-12] MEDS: (Novolog Mix 70/30) Insulin Aspart/Insulin Aspar 100 units/ml SC SCH ×3 (09:46→18:23)
[2017-02-12] MEDS: Ciprofloxacin 400mg/200ml D5W 400 MG/200 ML BAG IVPB SCH (11:17)
[2017-02-12 12:14] LABS: INR 1.2; PROTHROMBIN TIME 12.9 SECONDS (9.7-12.2)
[2017-02-12 12:38] LABS: ALB/GLOB RATIO 1.1 (1.0-2.1); ALBUMIN 3.4 g/dL (3.5-5.0); CALCIUM 7.8 mg/dl (8.6-10.4)
--- NOTE | 2017-02-12 13:44 | CP.PCM.CON ---
History of Present Illness - History of Present Illness History of Present Illness: 81 year old female with the following chronic medical conditions 1. HTN 2. DM chronic 3. Mitral stenosis - chronic and mild to moderate She is admitted for acute blood loss anemia now s/p PRBC's Review of Systems - Review of Systems All systems: reviewed and no additional remarkable complaints except Past Patient History - Infectious Disease Hx of Infectious Diseases: None - Past Medical History & Family History Past Medical History?: Yes - Past Social History Smoking Status: Never Smoked - CARDIAC Hx Cardiac Disorders: Yes Hx Congestive Heart Failure: Yes Hx Hypercholesterolemia: Yes Hx Hypertension: Yes - PULMONARY Hx Respiratory Disorders: Yes Hx Asthma: Yes - NEUROLOGICAL HX Cerebrovascular Accident: Yes - HEENT Hx HEENT Problems: No - RENAL Hx Chronic Kidney Disease: Yes - ENDOCRINE/METABOLIC Hx Diabetes Mellitus Type 2: Yes - HEMATOLOGICAL/ONCOLOGICAL Hx Blood Disorders: Yes Hx Anemia: Yes - INTEGUMENTARY Hx Dermatological Problems: No - MUSCULOSKELETAL/RHEUMATOLOGICAL Hx Musculoskeletal Disorders: Yes Hx Falls: Yes - GASTROINTESTINAL Hx Gastrointestinal Disorders: No - GENITOURINARY/GYNECOLOGICAL Hx Genitourinary Disorders: No - PSYCHIATRIC Hx Psychophysiologic Disorder: No Hx Substance Use: No - SURGICAL HISTORY Hx Surgeries: Yes Hx Orthopedic Surgery: Yes (Left hip replacement and right femur) - ANESTHESIA Hx Anesthesia: Yes Hx Anesthesia Reactions: No Hx Malignant Hyperthermia: No Has any member of the family had a problem w/ anesthesia?: No Meds Allergies/Adverse Reactions: Allergies Allergy/AdvReac Type Severity Reaction Status Date / Time Penicillins Allergy Verified 08/08/16 11:40 - Medications Medications: Current Medications Albuterol/Ipratropium (Duoneb 3 Mg/0.5 Mg (3 Ml) Ud) 3 ml INH RQ6 [facility] Last Admin: 02/12/17 13:23 Dose: 3 ml Aspirin (Aspirin Chewable) 81 mg PO DAILY [facility] Last Admin: 02/12/17 09:41 Dose: 81 mg Docusate Sodium (Colace) 100 mg PO BID [facility] Last Admin: 02/12/17 09:41 Dose: 100 mg Enalapril Maleate (Vasotec) 5 mg PO DAILY [facility] Last Admin: 02/12/17 09:41 Dose: Not Given Glipizide (Glucotrol Xl) 10 mg PO BID [facility] Last Admin: 02/12/17 09:41 Dose: 10 mg Guaifenesin/Dextromethorphan (Robitussin Dm) 5 ml PO Q6H [facility] Last Admin: 02/12/17 08:38 Dose: 5 ml Ciprofloxacin (Cipro 400mg/200ml Dsw) 400 mg in 200 mls @ 133.333 mls/hr IVPB Q24H [facility] Last Admin: 02/12/17 11:17 Dose: 133.333 mls/hr Insulin Aspart (Novolog) 0 unit SC ACHS [facility] PRN Reason: Protocol Last Admin: 02/12/17 13:09 Dose: Not Given Insulin Aspart (Novolog Mix 70/30 (70/30 Units/Ml)) 10 units SC BID [facility] Last Admin: 02/12/17 09:47 Dose: Not Given Insulin Detemir (Levemir) 10 unit SC [facility] Last Admin: 02/11/17 22:36 Dose: 10 unit Megestrol Acetate (Megace) 400 mg PO DAILY [facility] Last Admin: 02/12/17 09:41 Dose: 400 mg Multivitamins (Hexavitamin) 1 tab PO DAILY [facility] Last Admin: 02/12/17 09:41 Dose: 1 tab Pantoprazole Sodium (Protonix Ec Tab) 40 mg PO DAILY [facility] Last Admin: 02/12/17 09:41 Dose: 40 mg Pneumococcal Polyvalent Vaccine (Pneumovax 23 Vaccine) 0.5 ml IM .ONCE ONE Stop: 02/13/17 10:01 Rosuvastatin Calcium (Crestor) 2.5 mg PO [facility] Last Admin: 02/11/17 21:06 Dose: 2.5 mg Physical Exam - Constitutional Appears: Well, Non-toxic - Head Exam Head Exam: NORMAL INSPECTION. absent: ATRAUMATIC, NORMOCEPHALIC (+temporal wasting ) - Eye Exam Eye Exam: PERRL. absent: Scleral icterus - ENT Exam ENT Exam: Mucous Membranes Dry, Normal Oropharynx - Neck Exam Neck exam: Positive for: Full Rom. Negative for: Lymphadenopathy, Thyromegaly - Respiratory Exam Respiratory Exam: Wheezes, NORMAL BREATHING PATTERN - Cardiovascular Exam Cardiovascular Exam: REGULAR RHYTHM, RRR, +S1, +S2. absent: JVD - GI/Abdominal Exam GI & Abdominal Exam: Normal Bowel Sounds. absent: Organomegaly - Extremities Exam Extremities exam: Negative for: calf tenderness, pedal edema - Neurological Exam Neurological exam: CN II-XII Intact, Oriented x3 - Psychiatric Exam Psychiatric exam: Normal Affect, Normal Mood Results - Vital Signs Recent Vital Signs: Last Vital Signs Temp 97.8 F 02/12/17 08:00 Pulse 99 H 02/12/17 11:29 Resp 18 02/12/17 08:00 BP 108/62 02/12/17 09:41 Pulse Ox 100 02/12/17 08:00 - Labs Result Diagrams: 02/12/17 08:50 02/12/17 11:40 Labs: Laboratory Results - last 24 hr 02/11/17 02/11/17 02/11/17 17:31 17:33 18:36 WBC RBC Hgb Hct MCV MCH MCHC RDW Plt Count MPV Neut % (Auto) Lymph % (Auto) [place] % (Auto) Eos % (Auto) Baso % (Auto) Neut # Lymph # [place] # Eos # Baso # PT INR APTT Sodium Potassium Chloride Carbon Dioxide Anion Gap BUN Creatinine Est GFR ( Amer) Est GFR (Non-Af Amer) POC Glucose (mg/dL) 68 56 L 168 H Random Glucose Calcium Total Bilirubin AST ALT Alkaline Phosphatase Total Protein Albumin Globulin Albumin/Globulin Ratio Carcinoembryonic Ag CA 19-9 Antigen CA 125 Antigen Stool Occult Blood 02/11/17 02/11/17 02/12/17 21:02 22:25 02:03 WBC RBC Hgb Hct MCV MCH MCHC RDW Plt Count MPV Neut % (Auto) Lymph % (Auto) [place] % (Auto) Eos % (Auto) Baso % (Auto) Neut # Lymph # [place] # Eos # Baso # PT INR APTT Sodium Potassium Chloride Carbon Dioxide Anion Gap BUN Creatinine Est GFR ( Amer) Est GFR (Non-Af Amer) POC Glucose (mg/dL) 387 H 331 H Random Glucose Calcium Total Bilirubin AST ALT Alkaline Phosphatase Total Protein Albumin Globulin Albumin/Globulin Ratio Carcinoembryonic Ag CA 19-9 Antigen CA 125 Antigen Stool Occult Blood Positive H 02/12/17 02/12/17 02/12/17 06:34 08:50 11:40 WBC 16.3 H RBC 3.68 L Hgb 8.6 L Hct 27.1 L MCV 73.4 L MCH 23.5 L MCHC 32.0 L RDW 22.6 H Plt Count 225 MPV 11.1 Neut % (Auto) 74.6 Lymph % (Auto) 17.3 L [place] % (Auto) 7.3 Eos % (Auto) 0.4 Baso % (Auto) 0.4 Neut # 12.2 H Lymph # 2.8 [place] # 1.2 H Eos # 0.1 Baso # 0.1 PT 12.9 H INR 1.2 APTT 25 Sodium Potassium Chloride Carbon Dioxide Anion Gap BUN Creatinine Est GFR ( Amer) Est GFR (Non-Af Amer) POC Glucose (mg/dL) 369 H Random Glucose Calcium Total Bilirubin AST ALT Alkaline Phosphatase Total Protein Albumin Globulin Albumin/Globulin Ratio Carcinoembryonic Ag CA 19-9 Antigen CA 125 Antigen Stool Occult Blood 02/12/17 02/12/17 11:40 12:27 WBC RBC Hgb Hct MCV MCH MCHC RDW Plt Count MPV Neut % (Auto) Lymph % (Auto) [place] % (Auto) Eos % (Auto) Baso % (Auto) Neut # Lymph # [place] # Eos # Baso # PT INR APTT Sodium 130 L Potassium 4.4 Chloride 100 Carbon Dioxide 20 L Anion Gap 14 BUN 73 H Creatinine 2.1 H Est GFR ( Amer) 27 Est GFR (Non-Af Amer) 23 POC Glucose (mg/dL) 148 H Random Glucose 183 H Calcium 7.8 L Total Bilirubin 0.4 AST 18 ALT 15 Alkaline Phosphatase 43 Total Protein 6.4 Albumin 3.4 L Globulin 3.0 Albumin/Globulin Ratio 1.1 Carcinoembryonic Ag 1.2 CA 19-9 Antigen 8.5 CA 125 Antigen 12.8 Stool Occult Blood - EKG Data EKG Interpreted by: Myself EKG shows normal: Sinus rhythm Rate: Normal - Imaging and Cardiology Chest x-ray Status: Image reviewed by me Additional comment: Interstitial lung disease, no infiltrates Assessment & Plan - Assessment and Plan (Free Text) Assessment: 81 year old female with COPD exacerbation ABX, steroids, supportive care with bronchodilators Chronic diastolic CHF appears to be stable for now DM chronic uncontrolled in the setting of infection, needs insulin in addition to insulin sliding scale HTN is chronic on enalapril
[2017-02-12] MEDS: Rosuvastatin Calcium 2.5 mg Tab PO SCH (22:10)
[2017-02-12] MEDS: Insulin Detemir 100 units/ml Vial (Levemir) SC SCH (22:10)
--- NOTE | 2017-02-12 23:51 | CON ---
DATE: 02/12/2017 LOCATION: 658, bed B. HISTORY OF PRESENT ILLNESS: This is an 81-year-old French lady seen for GI consultation on 02/12/2017, as requested by the admitting MD as well as staff in the floor. The entire chart is reviewed including but not limited to the most recent lab and radiology study results, current and the previous medication list, current and the previous medical events, allergy to medication list as well as all the available current and the previous medical records. Case discussed with the staff at length this morning. This is an 81-year-old French female was admitted to the hospital with shortness of breath, unable to breath on different occasions recently, with reported darker fecal material and bowel movement with intermittent period of dry cough, but no reported significant chest pain, palpitation, chills, or fever recently. Patient reported some mild nausea with dyspepsia and slight change of bowel movement towards constipation. PAST MEDICAL HISTORY: Including but not limited to; 1. Bronchial asthma. 2. Osteoarthritis mainly in her hips and ankles. 3. Hypertension, reported CVA, hyperlipidemia with congestive heart failure. 4. Known history of diabetes mellitus with chronic kidney disorder. Patient had an upper endoscopy done on 06/17/2016, official report is unavailable at this point. The patient also had open reduction due to fracture of the femur in 12/2016. FAMILY HISTORY: Unknown. SOCIAL HISTORY: No known history of cigarette smoking or alcohol intake. ALLERGY TO MEDICATION: PENICILLIN. CURRENT MEDICATIONS: Medication lists were reviewed. LABORATORY DATA: Initial blood workup at the time of admission showed hemoglobin of 6.1 with hematocrit of 21.0, low. Patient received two units of blood transfusion and yesterday blood workup showed white blood cells of 15.9, low hemoglobin 8.8, low hematocrit 27.9, post blood transfusion with low indices highly suggestive of hypochromic microcytic anemia with positive stool for occult blood. Blood glucose level today reported to be 369. Chest x-ray at the time of admission on 02/09/2017, patient with left and right pleural atelectasis with possible infiltrate and pleural effusion with mild congestive heart failure. PHYSICAL EXAMINATION: GENERAL: An 81-year-old female, French lady, complaining angry with shortness of breath, somewhat tolerating oral intake, but not adequate as per her statement. VITAL SIGNS: The patient is afebrile with pulse of 108, respiratory rate 20 to 24, blood pressure of 120/64. HEENT: Showed pale, dry oral mucous membrane. Nonicteric sclerae. LYMPH NODES: No lymphadenitis or lymphadenopathy. LUNGS: Scattered crepitation with decreased air entry at bases with few rales bilaterally. HEART: Positive S1 and S2 with increased rate. ABDOMEN: Soft with slight generalized tenderness and mild distention. No mass or organomegaly. No rebound tenderness or guarding. RECTAL: Deferred due to the patient's cardiac and pulmonary status. EXTREMITIES: With slight lower extremities edematous changes. No clubbing, cyanosis or edema. NEUROLOGIC: No reported new neurological deficits, sensory or motor. IMPRESSION: 1. Re-exacerbation of bronchial asthma with possible pneumonia associated with pleural effusion as per the radiology study results. 2. Hypertension with element of congestive heart failure. 3. Re-exacerbation of peptic ulcer disease. 4. Anemia, hypochromic, microcytic, indicative of iron deficiency anemia with guaiac-positive stool and possibility of gastrointestinal blood loss, upper versus lower versus less likely anemia secondary to chronic disease. 5. Known history of, but not limited to also hyperlipidemia, osteoporosis, osteoarthritis, chronic renal mild insufficiency. 6. To rule out occult gastrointestinal malignancy. SUGGESTION: 1. Agree with your blood transfusion to keep hemoglobin around 10 gram percent. 2. Proton pump inhibitors IV. 3. Cancer markers. 4. Repeat stool for occult blood. 5. Pulmonary and Cardiology evaluation with IV antibiotics. 6. Sectional abdominal and pelvic CAT scan. 7. It has to be mentioned that pulmonary and cardiac status. No aggressive GI workup in the meantime until the patient is much more stable clinically, otherwise close observation to follow. Thank you for letting me participate in your patient's case management. Further evaluation to follow. Robbin Ray MD
[2017-02-13] MEDS: Albuterol-Ipratrop 3 mg / 0.5 (3 ml) UD INH SCH ×4 (02:36→19:33)
[2017-02-13] MEDS: guaiFENesin DM 100 mg-10 mg/5 ml UD PO SCH ×3 (02:44→14:17)
[2017-02-13 08:02] LABS: BASO # 0.1 K/uL (0.0-0.2); BASO % 0.4 % (0.0-2.0); EOS # 0.1 K/uL (0.0-0.7); HEMOGLOBIN 8.4 g/dL (11.0-16.0); LYMPH # 4.2 K/uL (1.0-4.3); LYMPH % 32.6 % (20.0-40.0); MEAN CELL VOLUME 73.7 fL (81.0-99.0); MEAN CORPUSCULAR HGB CONC 31.3 g/dL (33.0-37.0); MEAN PLATELET VOLUME 10.8 fL (7.2-11.7); MONO # 0.9 K/uL (0.0-0.8); MONO % 7.2 % (0.0-10.0); NEUT # 7.5 K/uL (1.8-7.0); NEUT % 58.8 % (50.0-75.0); RBC 3.65 Mil/uL (3.80-5.20); RED CELL DISTRIBUTION WIDTH 22.4 % (11.5-14.5); WHITE BLOOD COUNT 12.8 K/uL (4.8-10.8)
[2017-02-13 08:22] VITALS: TEMP 98.8
[2017-02-13] MEDS: (Novolog) Insulin Aspart, Recombinant 100 u/ml 10 ml vial SC SCH ×3 (08:30→18:12)
[2017-02-13 08:37] LABS: ALB/GLOB RATIO 1.1 (1.0-2.1); ALBUMIN 3.5 g/dL (3.5-5.0)
[2017-02-13] MEDS: Pantoprazole 40 mg EC Tab PO SCH (09:47)
[2017-02-13] MEDS: Multiple Vitamins Tab PO SCH (09:47)
[2017-02-13] MEDS: GlipiZIDE 10 mg SR Tab PO SCH ×2 (09:47→17:19)
[2017-02-13] MEDS: Megestrol Acetate 40 mg/ml Cup PO SCH (09:51)
[2017-02-13] MEDS: (Novolog Mix 70/30) Insulin Aspart/Insulin Aspar 100 units/ml SC SCH ×2 (09:54→18:20)
[2017-02-13] MEDS ORDERED: Pneumococcal 23-Valent Vaccine IM ONE (10:00)
[2017-02-13] MEDS: Ciprofloxacin 400mg/200ml D5W 400 MG/200 ML BAG IVPB SCH (11:23)
--- NOTE | 2017-02-13 11:36 | PN ---
DATE: SUBJECTIVE: The patient is admitted to the hospital with chief complaint of shortness of breath. The patient gets bed rest, supportive care, bronchodilators, follow H and H. Isa Cortez MD
--- NOTE | 2017-02-13 12:42 | CP.PCM.PN ---
Subjective - Date & Time of Evaluation Date of Evaluation: 02/13/17 Time of Evaluation: 12:51 - Subjective Subjective: Mild cough; clear sputum, no fevers or chills No respiratory distress or Angina No LE edema Objective - Vital Signs/Intake and Output Vital Signs (last 24 hours): Temp Pulse Resp BP Pulse Ox 98.8 F 100 H 18 111/64 99 02/13/17 07:15 02/13/17 08:07 02/13/17 07:15 02/13/17 09:47 02/13/17 07:15 Intake and Output: 02/13/17 02/13/17 06:59 18:59 Intake Total 700 Output Total 1700 Balance -1000 - Medications Medications: Current Medications Albuterol/Ipratropium (Duoneb 3 Mg/0.5 Mg (3 Ml) Ud) 3 ml INH RQ6 [facility] Last Admin: 02/13/17 07:49 Dose: 3 ml Aspirin (Aspirin Chewable) 81 mg PO DAILY [facility] Last Admin: 02/13/17 09:47 Dose: 81 mg Docusate Sodium (Colace) 100 mg PO BID [facility] Last Admin: 02/13/17 09:47 Dose: 100 mg Enalapril Maleate (Vasotec) 5 mg PO DAILY [facility] Last Admin: 02/13/17 09:47 Dose: 5 mg Glipizide (Glucotrol Xl) 10 mg PO BID [facility] Last Admin: 02/13/17 09:47 Dose: 10 mg Guaifenesin/Dextromethorphan (Robitussin Dm) 5 ml PO Q6H [facility] Last Admin: 02/13/17 08:30 Dose: 5 ml Ciprofloxacin (Cipro 400mg/200ml Dsw) 400 mg in 200 mls @ 133.333 mls/hr IVPB Q24H [facility] Last Admin: 02/13/17 11:23 Dose: 133.333 mls/hr Insulin Aspart (Novolog) 0 unit SC ACHS [facility] PRN Reason: Protocol Last Admin: 02/13/17 12:19 Dose: 2 unit Insulin Aspart (Novolog Mix 70/30 (70/30 Units/Ml)) 10 units SC BID [facility] Last Admin: 02/13/17 09:54 Dose: Not Given Insulin Detemir (Levemir) 10 unit SC HS [facility] Last Admin: 01/07/18 22:10 Dose: 10 unit Megestrol Acetate (Megace) 400 mg PO DAILY [facility] Last Admin: 02/13/17 09:51 Dose: 400 mg Multivitamins (Hexavitamin) 1 tab PO DAILY [facility] Last Admin: 02/13/17 09:47 Dose: 1 tab Pantoprazole Sodium (Protonix Ec Tab) 40 mg PO DAILY [facility] Last Admin: 02/13/17 09:47 Dose: 40 mg Rosuvastatin Calcium (Crestor) 2.5 mg PO HS [facility] Last Admin: 02/12/17 22:10 Dose: 2.5 mg - Labs Labs: 02/13/17 07:21 02/13/17 07:21 PT 12.9 SECONDS (9.7-12.2) H 02/12/17 11:40 INR 1.2 02/12/17 11:40 APTT 25 SECONDS (21-34) 02/12/17 11:40 - Constitutional Appears: Older Than Stated Age - Head Exam Head Exam: ATRAUMATIC, NORMAL INSPECTION, NORMOCEPHALIC - Eye Exam Eye Exam: EOMI, Normal appearance, PERRL - ENT Exam ENT Exam: Mucous Membranes Moist, Normal Oropharynx - Neck Exam Neck Exam: Full ROM - Respiratory Exam Respiratory Exam: Clear to Ausculation Bilateral, NORMAL BREATHING PATTERN. absent: Rhonchi, Wheezes - Cardiovascular Exam Cardiovascular Exam: REGULAR RHYTHM, +S1, +S2, Murmur - Extremities Exam Extremities Exam: Normal Inspection. absent: Calf Tenderness - Neurological Exam Neurological Exam: Alert, Awake Neuro motor strength exam: Left Upper Extremity: 5, Right Upper Extremity: 5, Left Lower Extremity: 5, Right Lower Extremity: 5 - Psychiatric Exam Psychiatric exam: Normal Affect, Normal Mood - Skin Skin Exam: Normal Color, Warm Assessment and Plan - Assessment and Plan (Free Text) Assessment: 81 year old female with COPD exacerbation ABX, steroids, supportive care with bronchodilators Chronic diastolic CHF appears to be stable for now Mild-mod Mitral stenosis: No documented afib Anemia with low MCV, + stool occult CKD DM chronic uncontrolled in the setting of infection, needs insulin in addition to insulin sliding scale HTN is chronic on enalapril PT/OT d/c planning per primary service: outpatient f/u with us to monitor MS.
--- NOTE | 2017-02-13 14:00 | CP.PCM.PN ---
Subjective - Date & Time of Evaluation Date of Evaluation: 02/13/17 Time of Evaluation: 09:00 - Subjective Subjective: Dr. Cortez note: Patient is seen and examined in room. Patient says she is feeling much better since admission and has no complaints other than not having a bowel movement for the past 2 days. However per nursing staff a few hours after I saw her she had a large bowel movement. Patient refused BEE and is asking to go home. Objective - Vital Signs/Intake and Output Vital Signs (last 24 hours): Temp Pulse Resp BP Pulse Ox 98.8 F 100 H 18 111/64 99 02/13/17 07:15 02/13/17 08:07 02/13/17 07:15 02/13/17 09:47 02/13/17 07:15 Intake and Output: 02/13/17 02/13/17 06:59 18:59 Intake Total 700 Output Total 1700 Balance -1000 - Medications Medications: Current Medications Albuterol/Ipratropium (Duoneb 3 Mg/0.5 Mg (3 Ml) Ud) 3 ml INH RQ6 [facility] Last Admin: 02/13/17 07:49 Dose: 3 ml Aspirin (Aspirin Chewable) 81 mg PO DAILY [facility] Last Admin: 02/13/17 09:47 Dose: 81 mg Docusate Sodium (Colace) 100 mg PO BID [facility] Last Admin: 02/13/17 09:47 Dose: 100 mg Enalapril Maleate (Vasotec) 5 mg PO DAILY [facility] Last Admin: 02/13/17 09:47 Dose: 5 mg Glipizide (Glucotrol Xl) 10 mg PO BID [facility] Last Admin: 02/13/17 09:47 Dose: 10 mg Guaifenesin/Dextromethorphan (Robitussin Dm) 5 ml PO Q6H [facility] Last Admin: 02/13/17 08:30 Dose: 5 ml Ciprofloxacin (Cipro 400mg/200ml Dsw) 400 mg in 200 mls @ 133.333 mls/hr IVPB Q24H [facility] Last Admin: 02/13/17 11:23 Dose: 133.333 mls/hr Insulin Aspart (Novolog) 0 unit SC ACHS [facility] PRN Reason: Protocol Last Admin: 02/13/17 12:19 Dose: 2 unit Insulin Aspart (Novolog Mix 70/30 (70/30 Units/Ml)) 10 units SC BID [facility] Last Admin: 02/13/17 09:54 Dose: Not Given Insulin Detemir (Levemir) 10 unit SC HS [facility] Last Admin: 02/12/17 22:10 Dose: 10 unit Megestrol Acetate (Megace) 400 mg PO DAILY [facility] Last Admin: 02/13/17 09:51 Dose: 400 mg Multivitamins (Hexavitamin) 1 tab PO DAILY [facility] Last Admin: 02/13/17 09:47 Dose: 1 tab Pantoprazole Sodium (Protonix Ec Tab) 40 mg PO DAILY [facility] Last Admin: 02/13/17 09:47 Dose: 40 mg Rosuvastatin Calcium (Crestor) 2.5 mg PO HS [facility] Last Admin: 02/12/17 22:10 Dose: 2.5 mg - Labs Labs: 02/13/17 07:21 02/13/17 07:21 PT 12.9 SECONDS (9.7-12.2) H 02/12/17 11:40 INR 1.2 02/12/17 11:40 APTT 25 SECONDS (21-34) 02/12/17 11:40 - Constitutional Appears: Non-toxic, No Acute Distress - Eye Exam Eye Exam: Normal appearance Pupil Exam: NORMAL ACCOMODATION - Respiratory Exam Respiratory Exam: Clear to Ausculation Bilateral. absent: Rales, Rhonchi, Wheezes - Cardiovascular Exam Cardiovascular Exam: REGULAR RHYTHM, RRR, +S1, +S2. absent: Gallop, Rubs - GI/Abdominal Exam GI & Abdominal Exam: Soft. absent: Tenderness, Normal Bowel Sounds - Extremities Exam Extremities Exam: Normal Inspection. absent: Pedal Edema - Back Exam Back Exam: NORMAL INSPECTION - Neurological Exam Neurological Exam: Alert - Psychiatric Exam Psychiatric exam: Normal Affect, Normal Mood - Skin Skin Exam: Normal Color Assessment and Plan (1) CAP (community acquired pneumonia) Assessment & Plan: Patient is discharged with 5 days of PO Cipro. She is breathing well with no distress, cleared by cardiology for discharge. She will need to follow up with her PMD after discharge. Refused BEE so we have discharged her home with PO antibiotics. Status: Acute (2) Hyperlipidemia Assessment & Plan: Patient continue taking Statin. Status: Acute (3) HTN (hypertension) Status: Acute (4) Uncontrolled diabetes mellitus Assessment & Plan: Patient continue with her current home mediation. She will need to see her PMD for adjustments as needed. Status: Acute
[2017-02-13 17:18] VITALS: BP 112/65; PULSE 97; RESP 20; O2SAT 98
--- NOTE | 2017-02-13 17:22 | PCM.HF ---
Heart Failure Core Measure - Heart Failure Ejection Fraction: 40 % or Greater
--- NOTE | 2017-02-13 20:06 | PN ---
DATE: LOCATION: [facility], bed B. SUBJECTIVE: This is an 81-year-old female seen and examined in rounds without significant clinical changes, reported active bleeding, but again with a complaint of generalized weakness and malaise, no reported actual chest pain. The entire chart is reviewed including, but not limited to the most recent lab and radiology study results, current and the previous medication list, current and the previous medical events. Today's lab showed white blood cells of 12.8, improving gradually, but with dropped hemoglobin to 8.4 and decreased hematocrit to 26.9 with low indices highly suggestive of hypochromic microcytic anemia. Sodium dropped to 130 with low CO2 content of 20 indicative of metabolic acidosis with BUN 68 and creatinine still elevated at 2.0. Blood glucose level latest was 233 with low calcium, but normal liver function test. PHYSICAL EXAMINATION: GENERAL: An 81-year-old female awake, alert and oriented, complaining of generalized weakness and generalized body ache as well as postprandial mild abdominal distention with nausea. VITAL SIGNS: The patient is afebrile with heart rate of 96, respiratory rate 20 to 22, blood pressure of 118/68. HEENT: Showed pale, dry oral mucous membrane. Nonicteric sclerae. LUNGS: A few scattered crepitation. Decreased air entry at bases. HEART: Positive S1 and S2. ABDOMEN: Soft, bowel sounds are present. No mass or organomegaly. No rebound tenderness or guarding. EXTREMITIES: Mild lower extremity edematous changes. No clubbing or cyanosis. NEUROLOGIC: No reported new neurological deficits, sensory or motor. ASSESSMENT AND PLAN: The patient is still complaining of air hungry with intermittent period of dyspnea, cannot move air in or out of her lungs as per her statement. IMPRESSION: 1. Re-exacerbation of bronchial asthma with possible pneumonia. 2. Pleural effusion by radiology study results. 3. Hypertension with element of congestive heart failure. 4. Peptic ulcer disease by history. 5. Hypochromic microcytic anemia secondary to most likely iron deficiency anemia, with improved hemoglobin and hematocrit post transfusion. However, the patient had guaiac positive stool with possible GI blood loss upper versus lower versus anemia secondary to chronic disease. 6. Known history of osteoporosis, hyperlipidemia, chronic renal insufficiency with osteoarthritis. 7. To rule out occult gastrointestinal malignancy. SUGGESTION: 1. Continue current management. 2. Due to the patient's respiratory status, one not perform any aggressive GI workup in the meantime until the patient is more stable clinically. 3. Follow up lung cancer marker. 4. Sectional abdominal and pelvic CAT scan. 5. Further recommendation to follow. Robbin Ray MD
--- NOTE | 2017-02-17 06:44 | DS ---
HOSPITAL COURSE: Patient admitted to the hospital with chief complaint weakness and shortness of breath. Patient started , bronchodilators, antibiotics, , blood transfusion, supportive care. The patient showed a lot of improvement and discharged to follow up as outpatient; admitted with CHF, COPD, pneumonia. Isa Cortez MD
== END 2017-02-13 20:44 | disposition home or self-care (01) | DRG 190 ==
LOC: C.ER 16:49 → C.6T 18:12
PROVIDERS: ADMIT Internal Medicine; ATTEND Internal Medicine Pulmonary Disease
PROC: 30233N1 Transfusion of Nonautologous Red Blood Cells into Peripheral Vein, Percutaneous Approach (ICD-10-PCS; principal; 2017-02-10)
DX: J44.0 Chronic obstructive pulmonary disease with (acute) lower respiratory infection (principal); J18.9 Pneumonia, unspecified organism; E87.2 Acidosis; E11.22 Type 2 diabetes mellitus with diabetic chronic kidney disease; I13.0 Hypertensive heart and chronic kidney disease with heart failure and stage 1 through stage 4 chronic kidney disease, or unspecified chronic kidney disease; I50.32 Chronic diastolic (congestive) heart failure; D62 Acute posthemorrhagic anemia; J45.901 Unspecified asthma with (acute) exacerbation; J44.1 Chronic obstructive pulmonary disease with (acute) exacerbation; E78.00 Pure hypercholesterolemia, unspecified; E78.5 Hyperlipidemia, unspecified; I05.0 Rheumatic mitral stenosis; K27.9 Peptic ulcer, site unspecified, unspecified as acute or chronic, without hemorrhage or perforation; M17.0 Bilateral primary osteoarthritis of knee; M81.0 Age-related osteoporosis without current pathological fracture; N18.9 Chronic kidney disease, unspecified; Z86.73 Personal history of transient ischemic attack (TIA), and cerebral infarction without residual deficits; Z96.642 Presence of left artificial hip joint; Z87.11 Personal history of peptic ulcer disease